=== PATIENT | male | born 1945 | race Caucasian/White ===

== ENCOUNTER 2018-11-12 15:00 | Inpatient (IN) ==
[2018-11-13] MEDS ORDERED: Dextrose Gel 15 GM/37.5 ML TUBE PO PRN ×2 (19:14)
[2018-11-13] MEDS ORDERED: D5% in Water 1,000 ML IVC PRN (19:14)
[2018-11-13] MEDS ORDERED: *HR* Dextrose 50 % in Water (Syg) 50 ML SYRINGE IVP PRN (19:14)
[2018-11-13] MEDS: Insulin LISPRO 300 UNITS/3 ML VIAL SQ SCH (21:57)
[2018-11-13] MEDS: Sennosides/Docusate Sodium TABLET PO SCH (21:58)
[2018-11-14 05:17] LABS: Basophils # 0.1 K/mcL (0.0-0.2); Basophils % 0.8 %; Eosinophils # 0.1 K/mcL (0.0-0.6); Eosinophils % 1.7 %; Hematocrit 27.9 % (37.5-50.1); Hemoglobin 9.8 g/dL (12.9-16.9); Immature Granulocytes % 1.9 % (0-4); Lymphocytes # 1.5 K/mcL (0.6-4.6); Mean Corpuscular HGB Conc 35.1 g/dL (31.6-35.5); Mean Corpuscular Volume 85.3 fL (83.0-100.0); Mean Platelet Volume 9.7 fL (9.4-12.4); Monocytes # 0.4 K/mcL (0.0-1.3); Monocytes % 6.5 %; Neutrophils # 4.2 K/mcL (1.6-8.9); Platelet Count 215 K/mcL (140-400); Red Blood Count 3.27 M/mcL (4.19-5.50); Red Cell Distribution Width 13.2 % (11.5-14.5); Segmented Neutrophils % 65.1 %
[2018-11-14 05:33] LABS: BUN/Creatinine Ratio 21 (6-26); Blood Urea Nitrogen 23 mg/dL (8-23); Carbon Dioxide 22 mEq/L (23-29); Chloride 109 mEq/L (98-107); Potassium 2.7 mEq/L (3.5-5.1); Sodium 139 mEq/L (136-145); eGFR For Non-African Americans > 60 (> 60)
[2018-11-14 05:34] LABS: Albumin 3.3 g/dL (3.5-5.7); BUN/Creatinine Ratio 21 (6-26); Blood Urea Nitrogen 23 mg/dL (8-23); Calcium 9.1 mg/dL (8.6-10.3); Carbon Dioxide 22 mEq/L (23-29); Chloride 109 mEq/L (98-107); Phosphorous 3.7 mg/dL (2.7-4.5); Potassium 2.7 mEq/L (3.5-5.1); Sodium 140 mEq/L (136-145); eGFR For Non-African Americans > 60 (> 60)
[2018-11-14 05:41] LABS: Glucose 108 mg/dL (70-105); Osmolality,Calculated 292 (280-300); Osmolality,Calculated 294 (280-300)
[2018-11-14] MEDS: Insulin LISPRO 300 UNITS/3 ML VIAL SQ SCH ×4 (07:36→20:53)
[2018-11-14] MEDS: Sennosides/Docusate Sodium TABLET PO SCH (07:40)
[2018-11-14] MEDS: *HR* SitaGLIPtin 100 MG TABLET PO SCH (07:40)
[2018-11-14] MEDS: amLODIPine 5 MG TABLET PO SCH (07:40)
[2018-11-14] MEDS: Cyanocobalamin (B-12) 1,000 MCG TABLET PO SCH (07:40)
[2018-11-14] MEDS: *HR* Glimepiride 4 MG TABLET PO SCH (07:46)
[2018-11-14] MEDS ORDERED: *HR* Metformin 500 MG TABLET PO SCH (08:00)
--- NOTE | 2018-11-14 09:23 | Internal Med History&Physical ---
Date of Encounter: 11/14/18 Time of Encounter: 09:20 Assessment and Plan (1) HTN (hypertension) Current visit: Yes Status: Chronic On multiple medication with imact of his Kidneys , Continue to monitor and adjsut meds as needed goal is to keep his systolic less then 160 since it could precipitate his intra parenchyma bleed. Qualifiers: Hypertension type: essential hypertension Qualified Code(s): I10 - Essential (primary) hypertension (2) Diabetes 1.5, managed as type 2 Current visit: Yes Status: Chronic on multiple meds HBA1c ordered , on sliding scale . Continue to be on the meds Adjust his meds based on his creatinine . D/C Metformin as his Creatinine is 2.7. On sliding scale insulin which he might need to be on . will benefit if Gargline is added after his HBA1c and overall control is more clear i (3) Chronic renal disease, stage 3, moderately decreased glomerular filtration rate between 30-59 mL/min/1.73 square meter Current visit: Yes Status: Chronic Cntinue to monitor and adjsut his meds as needed . Avoid all NSAID if possible . , Bladder scan to make it sure that there is no obstructive element (4) CVA (cerebrovascular accident due to intracerebral hemorrhage) Current visit: Yes Status: Acute He has hx of Previous CA with residual weakness on his left side . Right Basal ganglion bleed he was on Xeralto which is on hold . There is contraindication to use s/q heparin which he was on when came it . Use Compression stockings for DVT prevention while in beds Get rehab started hopefully that will increase his activity. Pt is full code . Qualifiers: Cerebral hemorrhage location: unspecified cerebral location Laterality: right Qualified Code(s): I61.9 - Nontraumatic intracerebral hemorrhage, unspecified (5) A-fib Current visit: Yes Status: Chronic Heart rate is stable at the present time , Anticoagulation on hold at the present time . He is to followup wiht his cardiology in one month and reassess the need to be on anticoagulation. will followup Qualifiers: Atrial fibrillation type: persistent Qualified Code(s): I48.1 - Persistent atrial fibrillation Internal Medicine - H&P: HPI Admitted From: Intrahospital Transfer ([facility]) History of present illness: Mr. Wade is a 73 year old male who was admitted from [facility] for rehab with the Dx of Right basal Ganglia Intraparenchymal bleed, CRF,hx of CVA with previous residual L hemiplegia,A fib ,CAD and DM. At the present time at the time of examination he was sitting and eating his breakfast . he denied any acute issues no Chest pain SOB nausea vomiting or diarrhea he complains of some weakness and loose stools which he has been having it for few days No fever or chill . Past Med Surg Social Fam HX - Past Medical History Medical history: CVA, diabetes, GERD, hypertension, thyroid disease, other Additional medical history: prostate Psychiatric history: no psych history - Past Surgical History Additional surgical history: bilat hip pins, ankle surgery, - Social History Smoking Status: Never smoker Smokeless Tobacco Status: No Alcohol use: none Drug use: none Internal Medicine - H&P: Meds Citalopram Hydrobromide [Celexa] 20 mg PO DAILY 11/13/18 [History] Cyanocobalamin (B-12) [Vitamin B12] 2,000 mcg PO DAILY 11/13/18 [History] Glimepiride [Amaryl] 4 mg PO QAM 11/13/18 [History] Levothyroxine [Synthroid] 75 mcg PO 0630 11/13/18 [History] Losartan Potassium [Cozaar] 100 mg PO DAILY 11/13/18 [History] Omeprazole [PriLOSEC] 40 mg PO DAILY 11/13/18 [History] Potassium Chloride [K-Tab ER] 20 meq PO DAILY 11/13/18 [History] Sennosides/Docusate Sodium [Senna-S Tablet] 1 each PO BID 11/13/18 [History] Simvastatin [Zocor] 20 mg PO HS 11/13/18 [History] SitaGLIPtin [Januvia] 100 mg PO DAILY 11/13/18 [History] Tamsulosin [Flomax] 0.4 mg PO DAILY 11/13/18 [History] Terazosin [Hytrin] 10 mg PO HS 11/13/18 [History] amLODIPine [Norvasc] 10 mg PO DAILY 11/13/18 [History] metFORMIN [Glucophage] 1,000 mg PO BIDWM 11/13/18 [History] Allergy/AdvReac Type Severity Reaction Status Date / Time Bee Pollen Allergy Anaphylaxis Verified 11/06/18 01:15 All Systems PM: A 10-system review of systems was performed and is negative for pertinent findings except as documented above in the HPI. - Constitutional Constitutional: weakness, no chills, no excessive sweating, no fever(s), no fa lls, no lethargy, no malaise, no night sweats, no weight loss - EENT Eyes: no blurry vision, no diplopia, no discharge, no dry eye, no loss of peripheral vision, no loss of vision, no photophobia, no seeing flashes, no other visual disturbances Nose, mouth and throat: no bleeding gums, no dental pain, no mouth pain, no sinus pain, no sore throat, no throat swelling, no tongue swelling - Respiratory Respiratory: no cough, no dyspnea, no hemoptysis, no dyspnea on exertion, no wheezing, no snoring, no pain on inspiration, no chest congestion, no excessive phlegm production, no change in phlegm color - Gastrointestinal Gastrointestinal: diarrhea, loose stools, no abdominal pain, no constipation, no dysphagia, no early satiety, no heartburn, no hematemesis, no hematochezia, no melena, no nausea - Genitourinary Genitourinary ROS male: urinary frequency, urinary hesitancy, urinary incontinence, urinary urgency, no dysuria, no flank pain, no genital lesions, no nocturia, no penile discharge, no post void dribbling - Musculoskeletal Musculoskeletal ROS IM: no arthralgias, no joint swelling, no stiffness, no tingling - Integumentary Integumentary IM: no erythema, no rash, no jaundice - Neurological Neurological ROS: focal weakness, weakness, no behavioral changes, no burning sensations, no confusion, no convulsions, no disequilibrium, no dizziness, no headache(s), no memory loss, no numbness, no restless legs, no tingling, no tremor(s) - Constitutional Vitals: Temp Pulse Resp BP Pulse Ox 98.3 F 66 16 180/84 98 11/14/18 07:49 11/14/18 07:49 11/14/18 07:49 11/14/18 07:49 11/14/18 07:49 General appearance: Present: A&O X 3, pleasant, obese, answers questions appropriately. Absent: severe distress - Head Head exam: Present: atraumatic - Eye Eye exam: Present: PERRL. Absent: scleral icterus Pupils: Present: PERRL - Neck Neck exam general surgery: Present: supple. Absent: tenderness, nuchal rigidity - Respiratory Respiratory exam: Present: CTAB. Absent: chest wall tenderness, decreased breath sounds, respiratory distress, rhonchi, stridor, wheezes, tachypnea Additional comments: ir entry equal both sides no wheeze or crackles noted - Cardiovascular Cardiovascular exam: Present: irregular rhythm, +S1, +S2 Additional comments: soft systolic mummer at the apex no radiation noted - GI/Abdominal GI/Abdominal exam: Present: normal bowel sounds, soft. Absent: diminished bowel sounds, rebound, rigid, tenderness, no peritoneal signs - Extremities Exam Extremities exam: Absent: pedal edema, tenderness - Neurological Exam Neurological exam: Present: altered, CN II-XII intact, oriented X3. Absent: facial droop, speech deficit Additional comments: weakness in his left arm and leg noted he was unable to raise motor strength is 3/5 on left side right side 5/5 Cranial nerves are grossly intact Internal Med - H&P Results - Labs CBC & Chem 7: 11/14/18 05:05 11/14/18 05:05 Labs: Short CBC 11/14/18 Range/Units 05:05 WBC 6.4 (4.3-11.1) K/mcL Hgb 9.8 L (12.9-16.9) g/dL Hct 27.9 L (37.5-50.1) % Plt Count 215 (140-400) K/mcL Neutrophils # 4.2 (1.6-8.9) K/mcL BMP 11/14/18 11/14/18 05:05 05:05 Sodium 139 140 Potassium 2.7 L 2.7 L Chloride 109 H 109 H Carbon Dioxide 22 L 22 L BUN 23 23 Creatinine 1.12 1.10 Glucose 108 H 108 H Calcium 9.0 9.1 Liver Function 11/14/18 Range/Units 05:05 Albumin 3.3 L (3.5-5.7) g/dL
[2018-11-15 05:54] LABS: BUN/Creatinine Ratio 18 (6-26); Blood Urea Nitrogen 20 mg/dL (8-23); Carbon Dioxide 24 mEq/L (23-29); Chloride 108 mEq/L (98-107); Glucose 140 mg/dL (70-105); Osmolality,Calculated 289 (280-300); Potassium 2.8 mEq/L (3.5-5.1); Sodium 137 mEq/L (136-145); eGFR For Non-African Americans > 60 (> 60)
--- NOTE | 2018-11-15 08:43 | Internal Med Progress Note ---
Date of Encounter: 11/15/18 Time of Encounter: 08:41 - Assessment and plan (1) HTN (hypertension) Current Visit: Yes Status: Chronic Assessment and plan: Blood pressure noted to be mildly high today . His creatinine is 2.8 needs to reconsider losartan use on [facility] long term care in the presence of CRI. Followup Renal profile in the [facility] if still high would recommend switching to any other antihypertensive meds ON prn Clonidine at the present time . Qualifiers: Hypertension type: essential hypertension Qualified Code(s): I10 - Essential (primary) hypertension (2) Diabetes 1.5, managed as type 2 Current Visit: Yes Status: Chronic Assessment and plan: stable On insulin . Blood sugar better (3) Chronic renal disease, stage 3, moderately decreased glomerular filtration rate between 30-59 mL/min/1.73 square meter Current Visit: Yes Status: Chronic Assessment and plan: followup labs , Seems to have good Urine output . Followup and adjust meds accordingly (4) CVA (cerebrovascular accident due to intracerebral hemorrhage) Current Visit: Yes Status: Acute Assessment and plan: stable at the present time Waiting for rehab to start. . Qualifiers: Cerebral hemorrhage location: unspecified cerebral location Laterality: right Qualified Code(s): I61.9 - Nontraumatic intracerebral hemorrhage, unspecified (5) A-fib Current Visit: Yes Status: Chronic Assessment and plan: Rate is s table needs to be reassessed for use of Anticoagulation after a month since he had a intraparenchymal bleed Qualifiers: Atrial fibrillation type: persistent Qualified Code(s): I48.1 - Persistent atrial fibrillation - Subjective Interval history: No acute issues at night time slept well and feels that he is doing much better weakness left side as before - Constitutional Vitals: Temp Pulse Resp BP Pulse Ox 98.8 F 63 16 164/75 96 11/15/18 07:00 11/15/18 07:00 11/15/18 07:00 11/15/18 07:00 11/15/18 07:00 General appearance: Present: A&O X 3, pleasant, obese, answers questions appropriately. Absent: severe distress - Head Head exam: Present: atraumatic - Eye Eye exam: Present: EOMI, PERRL Pupils: Present: PERRL - Neck Neck exam general surgery: Present: full ROM, supple. Absent: tenderness, nuchal rigidity - Respiratory Respiratory exam: Present: CTAB. Absent: decreased breath sounds, rhonchi, stridor, wheezes, tachypnea - Cardiovascular Cardiovascular exam: Present: irregular rhythm, +S1, +S2. Absent: tachycardia Additional comments: soft systolic mummer at [place] - GI/Abdominal GI/Abdominal exam: Present: normal bowel sounds, soft. Absent: distended, guarding, rebound, tenderness - Extremities Exam Extremities exam: Present: pedal edema Additional comments: minimal both side - Neurological Exam Neurological exam: Present: CN II-XII intact, oriented X3. Absent: facial droop, speech deficit Additional comments: left side arm and legs weak when compared to right side . He had residaul wekaenss from previous strokes as well . Internal Medicine: Result - Labs CBC & Chem 7: 11/14/18 05:05 11/15/18 05:28 Labs: BMP 11/15/18 05:28 Sodium 137 Potassium 2.8 L Chloride 108 H Carbon Dioxide 24 BUN 20 Creatinine 1.10 Glucose 140 H Calcium 9.0 Consult Discharge Plan - Plan Referrals: Zachary Galdamez CNP [Primary Care Provider] -
[2018-11-15] MEDS: Insulin LISPRO 300 UNITS/3 ML VIAL SQ SCH ×4 (09:51→20:31)
[2018-11-15] MEDS: *HR* Glimepiride 4 MG TABLET PO SCH (10:05)
[2018-11-15] MEDS: Cyanocobalamin (B-12) 1,000 MCG TABLET PO SCH (10:05)
[2018-11-15] MEDS: *HR* SitaGLIPtin 100 MG TABLET PO SCH (10:05)
[2018-11-15] MEDS: amLODIPine 5 MG TABLET PO SCH (10:05)
[2018-11-15] MEDS: cloNIDine HCl 0.1 MG TABLET PO PRN (11:12)
[2018-11-15 12:43] LABS: Estimated Average Glucose 128 mg/dl; Hemoglobin A1C 6.1 %
[2018-11-15] MEDS: Acetaminophen 325 MG TABLET PO PRN (23:12)
[2018-11-16] MEDS: Insulin LISPRO 300 UNITS/3 ML VIAL SQ SCH ×4 (07:53→21:20)
[2018-11-16] MEDS: amLODIPine 5 MG TABLET PO SCH (08:20)
[2018-11-16] MEDS: *HR* Glimepiride 4 MG TABLET PO SCH (08:20)
[2018-11-16] MEDS: *HR* SitaGLIPtin 100 MG TABLET PO SCH (08:20)
--- NOTE | 2018-11-16 11:12 | Internal Med Progress Note ---
Addendum entered and electronically signed by Marques Tapia MD 11/16/18 14:48: I have personally performed a face to face evaluation on this patient. I have r eviewed and agree with the care plan. History and Exam by me shows: Care assumed. Discussed with patient and . She is not sure about whether all previous strokes were right-sided deficits or if maybe one was left. In any event, he was ambulating with no appreciable diminished function, prior to this episode. We discussed hemorrhagic versus ischemic stroke, the importance of finding out from neurology or neurosurgery when he can begin his Xarelto again. He has been instructed to notify us should he have any new neurologic deficits, even while here. On further discussion, he has had diarrhea at home with profound hypokalemia and hypomagnesemia. For this reason, magnesium is ordered here and pending at this time. He still is quite hypokalemic, even though he has received supplements. Discussed care with other providers and/or nursing. Patient has no complaint of chest discomfort, dyspnea, orthopnea, palpitations, nausea or vomiting, constipation or diarrhea, other changes in bowel habits, difficulty with urination, rash or itching, or other new complaints, except as mentioned above. Review of systems is otherwise negative. Examination: (Except as mentioned above): General: In no apparent distress. Alert and oriented 3. Nondiaphoretic. Head: Atraumatic and normocephalic. Respiratory: No use of accessory muscles. Lungs are clear throughout. Normal airflow. Cardiovascular: Irregularly irregular consistent with atrial fibrillation but without murmur appreciated. Abdomen: Bowel sounds are normal. No hepatosplenomegaly mass or tenderness appreciated. Patient is examined upright in chair and this also limits exam. Extremities: No cyanosis clubbing or edema. Skin: Warm and non-diaphoretic with no new lesions noted. Original Note: Date of Encounter: 11/16/18 Time of Encounter: 11:09 - Assessment and plan (1) CVA (cerebrovascular accident due to intracerebral hemorrhage) Current Visit: Yes Status: Acute Assessment and plan: Continue PT, OT and ST. Will follow progress. No new neurological deficits. Follow up with neurology as scheduled. Qualifiers: Cerebral hemorrhage location: unspecified cerebral location Laterality: right Qualified Code(s): I61.9 - Nontraumatic intracerebral hemorrhage, unspecified (2) HTN (hypertension) Current Visit: Yes Status: Chronic Assessment and plan: Controlled with current medication. Continue clonidine as needed. Will monitor blood pressure. Qualifiers: Hypertension type: essential hypertension Qualified Code(s): I10 - Essential (primary) hypertension (3) Diabetes 1.5, managed as type 2 Current Visit: Yes Status: Chronic Assessment and plan: Controlled with sliding scale insulin. Continue to monitor blood sugars. Will adjust medications as necessary. (4) Chronic renal disease, stage 3, moderately decreased glomerular filtration rate between 30-59 mL/min/1.73 square meter Current Visit: Yes Status: Chronic Assessment and plan: Will monitor labs. Avoid nephrotoxic agents. (5) A-fib Current Visit: Yes Status: Chronic Assessment and plan: Rate and rhythm controlled. Anticoagulants on hold from neurology Qualifiers: Atrial fibrillation type: persistent Qualified Code(s): I48.1 - Persistent atrial fibrillation - Time Spent With Patient 25 - 35 minutes - Subjective Interval history: Patient participating well with therapy. Has left-sided weakness status post right CVA. Continues to have loose stool. Stool for c-diff was negative. Will trial a lactose-free diet. has spring hose and SCD's for DVT prophylaxis. Currently on of mechanical soft diet and thin liquids. Speech therapy to apolinar. States he lives at home with his and is anxious and ready to 2 only needs to due to get stronger to go home. Denies any new neurological deficits. Denies fever, chills, nausea vomiting. Maintaining appetite and hydration. - Constitutional Vitals: Temp Pulse Resp BP Pulse Ox 98.4 F 45 15 157/66 99 11/16/18 07:38 11/16/18 07:38 11/16/18 07:38 11/16/18 07:38 11/16/18 07:38 General appearance: Present: A&O X 3, pleasant, obese, answers questions appropriately. Absent: severe distress - Head Head exam: Present: atraumatic, normocephalic - Eye Eye exam: Present: PERRL, conjuntiva pink, sclera anicteric Pupils: Present: PERRL - Neck Neck exam general surgery: Present: supple, trachea midline. Absent: lymphadenopathy - Respiratory Respiratory exam: Present: CTAB. Absent: accessory muscle use, rales, rhonchi, wheezes - Cardiovascular Cardiovascular exam: Present: irregular rhythm, +S1, +S2. Absent: diastolic murmur, gallop, rubs, systolic murmur - GI/Abdominal GI/Abdominal exam: Present: normal bowel sounds, soft, no peritoneal signs. Absent: distended, tenderness - Extremities Exam Extremities exam: Present: warm, radial pulses palpable and symmetrical. Absent: calf tenderness, cyanotic, pedal edema Additional comments: Left upper and lower strength 3\5. Right upper and lower strength 5\5 - Neurological Exam Neurological exam: Present: CN II-XII intact, oriented X3, no focal deficits. Absent: pronater drift, facial droop, speech deficit - Skin Skin exam: Present: dry, intact Additional comments: Shearing wounds to bilat buttocks. Internal Medicine: Result - Labs CBC & Chem 7: 11/14/18 05:05 11/15/18 05:28 Consult Discharge Plan - Plan Referrals: Zachary Galdamez CNP [Primary Care Provider] -
[2018-11-16] MEDS: Cyanocobalamin (B-12) 1,000 MCG TABLET PO SCH (12:55)
[2018-11-16] MEDS: Acetaminophen 325 MG TABLET PO PRN (18:07)
[2018-11-17] MEDS: cloNIDine HCl 0.1 MG TABLET PO PRN (03:29)
[2018-11-17 06:00] LABS: BUN/Creatinine Ratio 18 (6-26); Blood Urea Nitrogen 19 mg/dL (8-23); Calcium 8.6 mg/dL (8.6-10.3); Carbon Dioxide 22 mEq/L (23-29); Chloride 109 mEq/L (98-107); Glucose 149 mg/dL (70-105); Osmolality,Calculated 289 (280-300); Potassium 2.9 mEq/L (3.5-5.1); Sodium 137 mEq/L (136-145); eGFR For Non-African Americans > 60 (> 60)
--- NOTE | 2018-11-17 11:28 | Internal Med Progress Note ---
Addendum entered and electronically signed by Marques Tapia MD 11/18/18 12:54: I have personally performed a face to face evaluation on this patient. I have r eviewed and agree with the care plan. History and Exam by me shows: The patient was evaluated by me yesterday but the note was not complete. This documentation is being completed today for that reason. Patient is feeling stronger and feels like he is progressing well with ther apies. He denies problems. Discussed care with other providers and/or nursing. Patient has no complaint of chest discomfort, dyspnea, orthopnea, palpitations, nausea or vomiting, constipation or diarrhea, other changes in bowel habits, difficulty with urination, rash or itching, or other new complaints, except as mentioned above. Review of systems is otherwise negative. Examination: (Except as mentioned above): General: In no apparent distress. Alert and oriented 3. Nondiaphoretic. Head: Atraumatic and normocephalic. Respiratory: No use of accessory muscles. Lungs are clear throughout. Normal airflow. Cardiovascular: Irregularly irregular consistent with atrial fibrillation without murmur appreciated. Abdomen: Bowel sounds are normal. No hepatosplenomegaly mass or tenderness appreciated. Obese and therefore difficult to palpate deeply. Patient is examined upright in chair and this also limits exam. Extremities: No cyanosis clubbing or edema. Skin: Warm and non-diaphoretic with no new lesions noted. Original Note: Date of Encounter: 11/17/18 Time of Encounter: 11:26 - Assessment and plan (1) CVA (cerebrovascular accident due to intracerebral hemorrhage) Current Visit: Yes Status: Acute Assessment and plan: Continue PT, OT and ST. Will follow progress. No new neurological deficits. Follow up with neurology as scheduled. Qualifiers: Cerebral hemorrhage location: unspecified cerebral location Laterality: right Qualified Code(s): I61.9 - Nontraumatic intracerebral hemorrhage, unspecified (2) HTN (hypertension) Current Visit: Yes Status: Chronic Assessment and plan: Controlled with current medication. Continue clonidine as needed. Will monitor blood pressure. Qualifiers: Hypertension type: essential hypertension Qualified Code(s): I10 - Essential (primary) hypertension (3) Diabetes 1.5, managed as type 2 Current Visit: Yes Status: Chronic Assessment and plan: Controlled with sliding scale insulin. Continue to monitor blood sugars. Will adjust medications as necessary. (4) Chronic renal disease, stage 3, moderately decreased glomerular filtration rate between 30-59 mL/min/1.73 square meter Current Visit: Yes Status: Chronic Assessment and plan: Will monitor labs. Avoid nephrotoxic agents. (5) A-fib Current Visit: Yes Status: Chronic Assessment and plan: Rate and rhythm stable. Anticoagulants on hold by neurology. Qualifiers: Atrial fibrillation type: persistent Qualified Code(s): I48.1 - Persistent atrial fibrillation (6) Hypokalemia Current Visit: Yes Status: Acute Assessment and plan: Potassium 2.9. Received IV mag sulfate yesterday. Continue potassium supplements. Will follow labs. Patient has had chronic diarrhea recently. (7) Hypomagnesemia Current Visit: Yes Status: Acute Assessment and plan: Received IV Mag sulfate yesterday. Will repeat labs - Time Spent With Patient less than 15 minutes - Subjective Interval history: Patient participating well with therapy. Has left-sided weakness status post right CVA. at bedside. Participating well with therapy. Continues to have loose stool. Stool for c-diff was negative. Will trial a lactose-free diet. has spring fuentes and SCD's for DVT prophylaxis. Denies any new neurological deficits. Denies fever, chills, nausea vomiting. Maintaining appetite and hydration. - Constitutional Vitals: Temp Pulse Resp BP Pulse Ox 97.7 F 50 15 158/73 98 11/17/18 07:36 11/17/18 07:36 11/17/18 07:36 11/17/18 07:36 11/17/18 07:36 General appearance: Present: A&O X 3, pleasant, obese, answers questions appropriately. Absent: severe distress Exam: Currently up in wheelchair - Head Head exam: Present: atraumatic, normocephalic - Eye Eye exam: Present: PERRL, conjuntiva pink, sclera anicteric Pupils: Present: PERRL - Neck Neck exam general surgery: Present: supple, trachea midline. Absent: lymphadenopathy - Respiratory Respiratory exam: Present: CTAB. Absent: accessory muscle use, rales, rhonchi, wheezes - Cardiovascular Cardiovascular exam: Present: irregular rhythm, +S1, +S2. Absent: diastolic murmur, gallop, rubs, systolic murmur - GI/Abdominal GI/Abdominal exam: Present: normal bowel sounds, soft, no peritoneal signs. Absent: distended, tenderness - Extremities Exam Extremities exam: Present: warm, radial pulses palpable and symmetrical. Absent: calf tenderness, cyanotic, pedal edema Additional comments: Edema to left hand, non-pitting - Neurological Exam Neurological exam: Present: CN II-XII intact, oriented X3, no focal deficits. Absent: pronater drift, facial droop, speech deficit - Skin Skin exam: Present: dry, intact Additional comments: Wounds with dressing in place to heal and bilateral Buttocks. Internal Medicine: Result - Labs CBC & Chem 7: 11/14/18 05:05 11/17/18 05:20 Labs: BMP 11/17/18 05:20 Sodium 137 Potassium 2.9 L Chloride 109 H Carbon Dioxide 22 L BUN 19 Creatinine 1.03 Glucose 149 H Calcium 8.6 Consult Discharge Plan - Plan Referrals: Zachary Galdamez CNP [Primary Care Provider] -
[2018-11-17] MEDS: Acetaminophen 325 MG TABLET PO PRN (11:30)
[2018-11-17] MEDS: *HR* SitaGLIPtin 100 MG TABLET PO SCH (11:30)
[2018-11-17] MEDS: amLODIPine 5 MG TABLET PO SCH (11:30)
[2018-11-17] MEDS: Cyanocobalamin (B-12) 1,000 MCG TABLET PO SCH (11:30)
[2018-11-17] MEDS: Magnesium Oxide 400 MG TABLET PO SCH (11:31)
[2018-11-17] MEDS: *HR* Glimepiride 4 MG TABLET PO SCH (11:31)
[2018-11-17] MEDS: Insulin LISPRO 300 UNITS/3 ML VIAL SQ SCH ×4 (11:31→20:31)
[2018-11-18] MEDS: Insulin LISPRO 300 UNITS/3 ML VIAL SQ SCH ×4 (07:45→20:29)
[2018-11-18] MEDS: *HR* SitaGLIPtin 100 MG TABLET PO SCH (07:47)
[2018-11-18] MEDS: Magnesium Oxide 400 MG TABLET PO SCH (07:47)
[2018-11-18] MEDS: Cyanocobalamin (B-12) 1,000 MCG TABLET PO SCH (07:47)
[2018-11-18] MEDS: *HR* Glimepiride 4 MG TABLET PO SCH (07:48)
[2018-11-18] MEDS: amLODIPine 5 MG TABLET PO SCH (07:48)
[2018-11-18 13:55] LABS: BUN/Creatinine Ratio 15 (6-26); Blood Urea Nitrogen 15 mg/dL (8-23); Carbon Dioxide 22 mEq/L (23-29); Chloride 105 mEq/L (98-107); Glucose 190 mg/dL (70-105); Osmolality,Calculated 284 (280-300); Potassium 3.2 mEq/L (3.5-5.1); Sodium 134 mEq/L (136-145); eGFR For Non-African Americans > 60 (> 60)
--- NOTE | 2018-11-18 14:49 | Internal Med Progress Note ---
Addendum entered and electronically signed by Marques Tapia MD 11/18/18 15:25: Patient is busy with other providers and/or in therapies or using the bathroom, so I am unable to see him today. Original Note: Date of Encounter: 11/18/18 Time of Encounter: 14:47 - Assessment and plan (1) CVA (cerebrovascular accident due to intracerebral hemorrhage) Current Visit: Yes Status: Acute Assessment and plan: Continue PT, OT and ST. Will follow progress. No new neurological deficits. Follow up with neurology as scheduled. Qualifiers: Cerebral hemorrhage location: unspecified cerebral location Laterality: right Qualified Code(s): I61.9 - Nontraumatic intracerebral hemorrhage, unspecified (2) HTN (hypertension) Current Visit: Yes Status: Chronic Assessment and plan: Controlled with current medication. Continue clonidine as needed. Will monitor blood pressure. Qualifiers: Hypertension type: essential hypertension Qualified Code(s): I10 - Essen tial (primary) hypertension (3) Diabetes 1.5, managed as type 2 Current Visit: Yes Status: Chronic Assessment and plan: Controlled with sliding scale insulin. Continue to monitor blood sugars. Will adjust medications as necessary. (4) Chronic renal disease, stage 3, moderately decreased glomerular filtration rate between 30-59 mL/min/1.73 square meter Current Visit: Yes Status: Chronic Assessment and plan: Will monitor labs. Avoid nephrotoxic agents. (5) A-fib Current Visit: Yes Status: Chronic Assessment and plan: Rate and rhythm stable. Anticoagulants on hold by neurology. Qualifiers: Atrial fibrillation type: persistent Qualified Code(s): I48.1 - Persistent atrial fibrillation (6) Hypokalemia Current Visit: Yes Status: Acute Assessment and plan: Potassium improving. 3.2 today. Continue supplements. (7) Hypomagnesemia Current Visit: Yes Status: Acute Assessment and plan: Improved after IV magnesium sulfate. Magnesium 1.6 today. - Time Spent With Patient less than 15 minutes - Subjective Interval history: Patient participating well with therapy. Has left-sided weakness status post right CVA. transfers with max assist. Suggested in parallel bars with therapy for 1 minute 15 seconds. With constant cueing. at bedside. Denies any new neurological deficits. Denies fever, chills, nausea vomiting. Maintaining appetite and hydration. - Constitutional Vitals: Temp Pulse Resp BP Pulse Ox 98.4 F 65 15 167/79 97 11/18/18 13:16 11/18/18 13:16 11/18/18 13:16 11/18/18 13:16 11/18/18 13:16 General appearance: Present: cooperative, A&O X 3, pleasant, obese, answers questions appropriately. Absent: severe distress - Head Head exam: Present: atraumatic, normocephalic - Eye Eye exam: Present: PERRL, conjuntiva pink, sclera anicteric Pupils: Present: PERRL - Neck Neck exam general surgery: Present: supple, trachea midline. Absent: lymphadenopathy - Respiratory Respiratory exam: Present: CTAB. Absent: accessory muscle use, rales, rhonchi, wheezes - Cardiovascular Cardiovascular exam: Present: irregular rhythm, +S1, +S2. Absent: diastolic murmur, gallop, rubs, systolic murmur - GI/Abdominal GI/Abdominal exam: Present: normal bowel sounds, soft, no peritoneal signs. Absent: distended, tenderness - Extremities Exam Extremities exam: Present: warm, radial pulses palpable and symmetrical. Absent: calf tenderness, cyanotic, pedal edema Additional comments: Left hand non-pitting edema. Encourage to elevate. - Neurological Exam Neurological exam: Present: CN II-XII intact, oriented X3, no focal deficits. Absent: pronater drift, facial droop, speech deficit - Skin Skin exam: Present: dry, intact Internal Medicine: Result - Labs CBC & Chem 7: 11/14/18 05:05 11/18/18 13:00 Labs: BMP 11/18/18 13:00 Sodium 134 L Potassium 3.2 L Chloride 105 Carbon Dioxide 22 L BUN 15 Creatinine 1.01 Glucose 190 H Calcium 9.0 Consult Discharge Plan - Plan Referrals: Zachary Galdamez, [employer]ACHINE OPERATOR [Primary Care Provider] -
--- NOTE | 2018-11-18 15:38 | Psychological Evaluation ---
Date of Encounter: 11/18/18 Time of Encounter: 10:00 History of Present Illness History of present illness: Mr. Wade is a 73 year old male who was admitted from [facility] for rehab with the Dx of Right basal Ganglia Intraparenchymal bleed, CRF,hx of CVA with previous residual L hemiplegia,A fib ,CAD and DM. Past Medical History - Psychiatric History Psychiatric history: Reports: no psych history Home Medications and Allergies Citalopram Hydrobromide [Celexa] 20 mg PO DAILY 11/13/18 [History] Cyanocobalamin (B-12) [Vitamin B12] 2,000 mcg PO DAILY 11/13/18 [History] Glimepiride [Amaryl] 4 mg PO QAM 11/13/18 [History] Levothyroxine [Synthroid] 75 mcg PO 0630 11/13/18 [History] Losartan Potassium [Cozaar] 100 mg PO DAILY 11/13/18 [History] Omeprazole [PriLOSEC] 40 mg PO DAILY 11/13/18 [History] Potassium Chloride [K-Tab ER] 20 meq PO DAILY 11/13/18 [History] Sennosides/Docusate Sodium [Senna-S Tablet] 1 each PO BID 11/13/18 [History] Simvastatin [Zocor] 20 mg PO HS 11/13/18 [History] SitaGLIPtin [Januvia] 100 mg PO DAILY 11/13/18 [History] Tamsulosin [Flomax] 0.4 mg PO DAILY 11/13/18 [History] Terazosin [Hytrin] 10 mg PO HS 11/13/18 [History] amLODIPine [Norvasc] 10 mg PO DAILY 11/13/18 [History] metFORMIN [Glucophage] 1,000 mg PO BIDWM 11/13/18 [History] Allergy/AdvReac Type Severity Reaction Status Date / Time Bee Pollen Allergy Anaphylaxis Verified 11/06/18 01:15 Social History - Social History Social History: Pt 40 years with 2 adult children and grandchildren. Lives with . He retired 2010 and has high school diploma. He enjoys grandsons sports; grocery shopping; yard work; and eating breakfast out. He would like to get back to these activities upon dc. - Tobacco Use Smoking Status: Never smoker - Alcohol Use Alcohol Use: none - Drug Use Drug Use: none Cognitive/Emotional Assessment - Cognitive Ability Abstract Thinking Ability: No Deficits Noted Attention Span Ability: Capable of Sustained Attention Language Function Ability: No Deficits Noted Verbal Communication Ability: Conversational Style Problem Solving Ability: Able To Solve Simple Problems Level of Alertness: Alert Memory Description: Recent Intact, Remote Intact Orientation: Person, Place, Time, Day of Week, Month, Year Ability to Follow Directions: Good Speech Pattern: Normal rate, Normal rhythm Thought Process: Intact Additional Findings: Ablle to spell WORLD forward and backward. 1/3 objects recalled after 5min and 1/2 recall with category cue. 5 digits forward and 2 backward. 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 Assessment & Plan - Diagnosis (1) Adjustment disorder with depressed mood - Prognosis Prognosis: Good - Treatment Plan Treatment Plan/Recommendations: Will follow as needed for coping strategies to maintain forward gains and hankins ges in function. Treatment Frequency: As staff and pt see need Procedures - Participants Therapy Participant: Patient - Session Time Session Start Time: 10:00 Session Stop Time: 10:30
[2018-11-18] MEDS: Acetaminophen 325 MG TABLET PO PRN (20:03)
[2018-11-19] MEDS: Insulin LISPRO 300 UNITS/3 ML VIAL SQ SCH ×4 (07:41→20:25)
[2018-11-19] MEDS: *HR* SitaGLIPtin 100 MG TABLET PO SCH (07:49)
[2018-11-19] MEDS: Cyanocobalamin (B-12) 1,000 MCG TABLET PO SCH (07:49)
[2018-11-19] MEDS: amLODIPine 5 MG TABLET PO SCH (07:49)
[2018-11-19] MEDS: Magnesium Oxide 400 MG TABLET PO SCH (07:49)
[2018-11-19] MEDS: *HR* Glimepiride 4 MG TABLET PO SCH (07:49)
--- NOTE | 2018-11-19 12:24 | Internal Med Progress Note ---
Date of Encounter: 11/19/18 Time of Encounter: 12:18 - Assessment and plan (1) CVA (cerebrovascular accident due to intracerebral hemorrhage) Current Visit: Yes Status: Acute Assessment and plan: This is markedly improved. We will continue to follow with therapies and clinically. The question is when he resumed his Xarelto. Qualifiers: Cerebral hemorrhage location: unspecified cerebral location Laterality: right Qualified Code(s): I61.9 - Nontraumatic intracerebral hemorrhage, unspecified (2) HTN (hypertension) Current Visit: Yes Status: Chronic Assessment and plan: Most readings are moderately controlled. Qualifiers: Hypertension type: essential hypertension Qualified Code(s): I10 - Essential (primary) hypertension (3) Diabetes 1.5, managed as type 2 Current Visit: Yes Status: Chronic Assessment and plan: Generally, control is adequate. (4) Hypokalemia Current Visit: Yes Status: Acute Assessment and plan: Improved but persistent and will maintain supplementation. (5) A-fib Current Visit: Yes Status: Chronic Assessment and plan: Still present and will await neurologic determination of when he can resume anticoagulation. Qualifiers: Atrial fibrillation type: persistent Qualified Code(s): I48.1 - Persistent atrial fibrillation (6) Chronic renal disease, stage 3, moderately decreased glomerular filtration rate between 30-59 mL/min/1.73 square meter Current Visit: Yes Status: Chronic Assessment and plan: Clinically stable labs. (7) Hypomagnesemia Current Visit: Yes Status: Acute Assessment and plan: Persistent yet improved. We will give him another dose of IV magnesium. - Subjective Interval history: Patient is without complaint. He feels like he is doing much better. He denies problems. He feels like his bowels have nearly normalized. Discussed care with other providers and/or nursing. Patient has no complaint of chest discomfort, dyspnea, orthopnea, palpitations, nausea or vomiting, constipation or diarrhea, other changes in bowel habits, difficulty with urination, rash or itching, or other new complaints, except as mentioned above. Review of systems is otherwise negative. - Constitutional Vitals: Temp Pulse Resp BP Pulse Ox 98.3 F 80 16 173/75 98 11/19/18 07:16 11/19/18 12:05 11/19/18 12:05 11/19/18 12:05 11/19/18 12:05 Exam: Examination: (Except as mentioned above): General: In no apparent distress. Alert and oriented 3. Nondiaphoretic. Head: Atraumatic and normocephalic. Respiratory: No use of accessory muscles. Lungs are clear throughout. Normal airflow. Cardiovascular: Regular rate and rhythm without murmur appreciated. Abdomen: Bowel sounds are normal. No hepatosplenomegaly mass or tenderness appreciated. Obese and therefore difficult to palpate deeply. Patient is examined upright in chair and this also limits exam. Extremities: No cyanosis clubbing or edema. Skin: Warm and non-diaphoretic with no new lesions noted. Neurologically, the patient has much improved strength. While it is 4+ out of 5 and therefore not normal, is markedly improved over 2 days ago. Internal Medicine: Result - Labs CBC & Chem 7: 11/14/18 05:05 11/18/18 13:00 Labs: BMP 11/18/18 13:00 Sodium 134 L Potassium 3.2 L Chloride 105 Carbon Dioxide 22 L BUN 15 Creatinine 1.01 Glucose 190 H Calcium 9.0 - VTE Documentation of Mechanical Device: Intermittent pneumatic compression device Consult Discharge Plan - Plan Referrals: Zachary Galdamez CNP [Primary Care Provider] -
[2018-11-19] MEDS: cloNIDine HCl 0.1 MG TABLET PO PRN (14:40)
[2018-11-19] MEDS: Acetaminophen 325 MG TABLET PO PRN (20:22)
[2018-11-20 05:41] LABS: BUN/Creatinine Ratio 16 (6-26); Blood Urea Nitrogen 15 mg/dL (8-23); Calcium 8.8 mg/dL (8.6-10.3); Carbon Dioxide 22 mEq/L (23-29); Chloride 108 mEq/L (98-107); Glucose 143 mg/dL (70-105); Magnesium 1.9 mg/dL (1.6-2.6); Osmolality,Calculated 291 (280-300); Sodium 139 mEq/L (136-145); eGFR For Non-African Americans > 60 (> 60)
[2018-11-20] MEDS: Magnesium Oxide 400 MG TABLET PO SCH (10:25)
[2018-11-20] MEDS: Cyanocobalamin (B-12) 1,000 MCG TABLET PO SCH (10:30)
[2018-11-20] MEDS: *HR* SitaGLIPtin 100 MG TABLET PO SCH (10:30)
[2018-11-20] MEDS: *HR* Glimepiride 4 MG TABLET PO SCH (10:30)
[2018-11-20] MEDS: amLODIPine 5 MG TABLET PO SCH (10:30)
--- NOTE | 2018-11-20 10:43 | Internal Med Progress Note ---
Addendum entered and electronically signed by Marques Tapia MD 11/20/18 13:48: I have personally performed a face to face evaluation on this patient. I have r eviewed and agree with the care plan. History and Exam by me shows: Patient is not feeling well, today. He has no specific or localized complaints including no dizziness, lightheadedness, headache, nausea, etc. Discussed care with other providers and/or nursing. Patient has no complaint of chest discomfort, dyspnea, orthopnea, palpitations, nausea or vomiting, constipation or diarrhea, other changes in bowel habits, difficulty with urination, rash or itching, or other new complaints, except as mentioned above. Review of systems is otherwise negative. Examination: (Except as mentioned above): General: In no apparent distress. Alert and oriented 3. Nondiaphoretic. Head: Atraumatic and normocephalic. Respiratory: No use of accessory muscles. Lungs are clear throughout. Normal airflow. Cardiovascular: Regular rate and rhythm without murmur appreciated. Abdomen: Bowel sounds are normal. No hepatosplenomegaly mass or tenderness appreciated. Obese and therefore difficult to palpate deeply. Patient is examined upright in chair and this also limits exam. Extremities: No cyanosis clubbing or edema. Skin: Warm and non-diaphoretic with no new lesions noted. Neurologically, he continues to have better strength in his left upper and lower extremities. Of note, he had a moderately elevated blood pressure this morning and this is doing better. Will follow his symptoms and blood pressure and use when necessary clonidine. Original Note: Date of Encounter: 11/20/18 Time of Encounter: 10:38 - Assessment and plan (1) CVA (cerebrovascular accident due to intracerebral hemorrhage) Current Visit: Yes Status: Acute Assessment and plan: No acute issues. Patient continues with left hemiparesis. Patient states that physical therapy has been progressing well. Patient states he. Weight on his left leg but continues to have difficulty with walking. Qualifiers: Cerebral hemorrhage location: unspecified cerebral location Laterality: right Qualified Code(s): I61.9 - Nontraumatic intracerebral hemorrhage, unspecified (2) HTN (hypertension) Current Visit: Yes Status: Chronic Assessment and plan: Patient continues to have slightly elevated systolic blood pressure between 150-160. We will continue on current medications and evaluate patient's blood pressures for titration of medications Qualifiers: Hypertension type: essential hypertension Qualified Code(s): I10 - Essential (primary) hypertension (3) Diabetes 1.5, managed as type 2 Current Visit: Yes Status: Chronic Assessment and plan: No acute issues. Patient's glucose has been fairly well-controlled with most readings less than 200. Continue sliding scale coverage and evaluate patient's long-acting coverage for titration (4) Chronic renal disease, stage 3, moderately decreased glomerular filtration rate between 30-59 mL/min/1.73 square meter Current Visit: Yes Status: Chronic Assessment and plan: No acute issues. Patient's current creatinine of 0.9. We will continue to monitor serial labs and continue on current medications (5) A-fib Current Visit: Yes Status: Chronic Assessment and plan: Patient's current ventricular rate is less than 100 controlled. He denies any chest discomforts palpitations. We will continue on current medications. Qualifiers: Atrial fibrillation type: persistent Qualified Code(s): I48.1 - Persistent atrial fibrillation (6) Hypokalemia Current Visit: Yes Status: Acute Assessment and plan: Today's potassium is 3.0. Patient given supplemental potassium 40 mEq today and will start on daily potassium. - Time Spent With Patient less than 15 minutes - Subjective Interval history: Patient appears relaxed and currently denies any discomforts or shortness of breath. Patient states that he feels his strength on his left side has improved somewhat. Patient denies any acute neurological changes since his admission - Constitutional Vitals: Temp Pulse Resp BP Pulse Ox 97.7 F 50 16 152/80 93 11/20/18 07:43 11/20/18 07:43 11/20/18 07:43 11/20/18 07:43 11/20/18 07:43 General appearance: Present: cooperative, A&O X 3, pleasant, obese, answers questions appropriately. Absent: severe distress - Head Head exam: Present: atraumatic, normocephalic - Eye Eye exam: Present: PERRL, conjuntiva pink, sclera anicteric Pupils: Present: PERRL - Neck Neck exam general surgery: Present: supple, trachea midline. Absent: lymphadenopathy - Respiratory Respiratory exam: Present: CTAB. Absent: accessory muscle use, rales, rhonchi, wheezes - Cardiovascular Cardiovascular exam: Present: RRR, +S1, +S2. Absent: diastolic murmur, gallop, rubs, systolic murmur - GI/Abdominal GI/Abdominal exam: Present: normal bowel sounds, soft, no peritoneal signs. Absent: distended, tenderness - Extremities Exam Extremities exam: Present: warm, radial pulses palpable and symmetrical. Absent: calf tenderness, cyanotic, pedal edema - Neurological Exam Neurological exam: Present: CN II-XII intact, oriented X3. Absent: pronater drift, facial droop, speech deficit Additional comments: Patient continues with left hemiparesis with left extremities and 4/5 muscle strength proximal/distal during extension/flexion. Right extremities at 5/5. Noted left pronator drift on both left arm and leg - Skin Skin exam: Present: dry, intact Internal Medicine: Result - Labs CBC & Chem 7: 11/14/18 05:05 11/20/18 04:53 Labs: BMP 11/20/18 04:53 Sodium 139 Potassium 3.0 L Chloride 108 H Carbon Dioxide 22 L BUN 15 Creatinine 0.93 Glucose 143 H Calcium 8.8 - VTE Documentation of Mechanical Device: Intermittent pneumatic compression device Consult Discharge Plan - Plan Referrals: Zachary Gadlamez [employer]TING MACHINE HELPER [Primary Care Provider] -
[2018-11-20] MEDS: Insulin LISPRO 300 UNITS/3 ML VIAL SQ SCH ×4 (12:19→21:38)
[2018-11-20] MEDS: cloNIDine HCl 0.1 MG TABLET PO PRN (12:24)
[2018-11-21 07:29] LABS: Hematocrit 27.1 % (37.5-50.1); Hemoglobin 9.3 g/dL (12.9-16.9); Mean Corpuscular HGB Conc 34.3 g/dL (31.6-35.5); Mean Corpuscular Hemoglobin 29.2 pg (28.0-33.3); Mean Corpuscular Volume 85.2 fL (83.0-100.0); Mean Platelet Volume 10.1 fL (9.4-12.4); Platelet Count 200 K/mcL (140-400); Red Blood Count 3.18 M/mcL (4.19-5.50); Red Cell Distribution Width 13.5 % (11.5-14.5)
[2018-11-21 07:44] LABS: Alanine Aminotransferase 12 Units/L (7-52); Albumin 3.2 g/dL (3.5-5.7); Albumin/Globulin Ratio 1.4 (1.1-2.2); Alkaline Phosphatase 73 Units/L (34-104); Aspartate Amino Transferase 12 Units/L (13-39); BUN/Creatinine Ratio 19 (6-26); Bilirubin,Total 0.5 mg/dL (0.3-1.0); Blood Urea Nitrogen 17 mg/dL (8-23); Calcium 8.6 mg/dL (8.6-10.3); Carbon Dioxide 22 mEq/L (23-29); Chloride 106 mEq/L (98-107); Globulin 2.3 g/dL (2.4-3.5); Glucose 158 mg/dL (70-105); Magnesium 1.7 mg/dL (1.6-2.6); Osmolality,Calculated 281 (280-300); Potassium 3.1 mEq/L (3.5-5.1); Sodium 133 mEq/L (136-145); Total Protein 5.5 g/dL (6.4-8.9); eGFR For Non-African Americans > 60 (> 60)
[2018-11-21] MEDS: Insulin LISPRO 300 UNITS/3 ML VIAL SQ SCH ×4 (08:27→20:18)
[2018-11-21] MEDS: *HR* Glimepiride 4 MG TABLET PO SCH (08:28)
[2018-11-21] MEDS: amLODIPine 5 MG TABLET PO SCH (08:29)
[2018-11-21] MEDS: Magnesium Oxide 400 MG TABLET PO SCH (08:30)
[2018-11-21] MEDS: *HR* SitaGLIPtin 100 MG TABLET PO SCH (08:30)
[2018-11-21] MEDS: Cyanocobalamin (B-12) 1,000 MCG TABLET PO SCH (08:30)
[2018-11-21] MEDS: cloNIDine HCl 0.1 MG TABLET PO PRN ×2 (13:08→16:54)
--- NOTE | 2018-11-21 17:39 | Internal Med Progress Note ---
Date of Encounter: 11/21/18 Time of Encounter: 17:00 - Assessment and plan (1) HTN (hypertension) Current Visit: Yes Status: Chronic Assessment and plan: Uncontrolled. Will start hydralazine and continue clonidine prn. Qualifiers: Hypertension type: essential hypertension Qualified Code(s): I10 - Essential (primary) hypertension (2) Diabetes 1.5, managed as type 2 Current Visit: Yes Status: Chronic Assessment and plan: Appears uncontrolled. Will obtain A1c and continue current regimen. Might need to consider initiating insulin. (3) Chronic renal disease, stage 3, moderately decreased glomerular filtration rate between 30-59 mL/min/1.73 square meter Current Visit: Yes Status: Chronic Assessment and plan: No acute issues. Patient's current creatinine of 0.89. We will continue to monitor serial labs and continue on current medications (4) CVA (cerebrovascular accident due to intracerebral hemorrhage) Current Visit: Yes Status: Acute Assessment and plan: No acute issues. Patient continues with left hemiparesis. Patient states that physical therapy has been progressing well. Continue current regimen. Qualifiers: Cerebral hemorrhage location: unspecified cerebral location Laterality: right Qualified Code(s): I61.9 - Nontraumatic intracerebral hemorrhage, unspecified (5) A-fib Current Visit: Yes Status: Chronic Assessment and plan: Patient's current ventricular rate is less than 100 controlled. We will continue on current medications. Qualifiers: Atrial fibrillation type: persistent Qualified Code(s): I48.1 - Persistent atrial fibrillation (6) Hypokalemia Current Visit: Yes Status: Acute Assessment and plan: replete as appropriate. - Time Spent With Patient less than 15 minutes - Subjective Interval history: Doing fine, no concern. Did eat a peanut better snack this afternoon and believes this could be the reason why his sugar has been high. - Constitutional Vitals: Temp Pulse Resp BP Pulse Ox 97.7 F 59 16 167/73 95 11/21/18 16:51 11/21/18 16:51 11/21/18 16:51 11/21/18 16:51 11/21/18 16:51 General appearance: Present: cooperative, A&O X 3, pleasant, obese, answers questions appropriately. Absent: severe distress Exam: Gen: A&Ox3, NAD. HEENT: NCAT. Neck: No palpable lymphadenopathy or thyromegaly. CV: Irregularly irregular. 2/6, systolic murmur. Capillary refill < 2 seconds. Pulm: CTAB. Abd: (+)BS. NDNT. Neuro: Left-sided weakness, otherwise non-focal. Skin: No rash. Ext: No pitting edema. Internal Medicine: Result - Labs CBC & Chem 7: 11/21/18 07:05 11/21/18 07:05 Labs: Short CBC 11/21/18 Range/Units 07:05 WBC 7.3 (4.3-11.1) K/mcL Hgb 9.3 L (12.9-16.9) g/dL Hct 27.1 L (37.5-50.1) % Plt Count 200 (140-400) K/mcL BMP 11/21/18 07:05 Sodium 133 L Potassium 3.1 L Chloride 106 Carbon Dioxide 22 L BUN 17 Creatinine 0.89 Glucose 158 H Calcium 8.6 Liver Function 11/21/18 Range/Units 07:05 Total Bilirubin 0.5 (0.3-1.0) mg/dL AST 12 L (13-39) Units/L ALT 12 (7-52) Units/L Alkaline Phosphatase 73 (34-104) Units/L Albumin 3.2 L (3.5-5.7) g/dL - VTE Documentation of Mechanical Device: Intermittent pneumatic compression device Consult Discharge Plan - Plan Referrals: Zachary Galdamez CNP [Primary Care Provider] -
[2018-11-21] MEDS: hydrALAZINE 10 MG TABLET PO SCH (20:18)
[2018-11-22] MEDS: hydrALAZINE 10 MG TABLET PO SCH ×4 (00:41→18:10)
[2018-11-22] MEDS: Insulin LISPRO 300 UNITS/3 ML VIAL SQ SCH ×4 (08:23→21:03)
[2018-11-22] MEDS: Cyanocobalamin (B-12) 1,000 MCG TABLET PO SCH (09:35)
[2018-11-22] MEDS: *HR* Glimepiride 4 MG TABLET PO SCH (09:36)
[2018-11-22] MEDS: *HR* SitaGLIPtin 100 MG TABLET PO SCH (09:36)
[2018-11-22] MEDS: amLODIPine 5 MG TABLET PO SCH (09:37)
[2018-11-22] MEDS: Magnesium Oxide 400 MG TABLET PO SCH (09:37)
--- NOTE | 2018-11-22 13:33 | Internal Med Progress Note ---
Date of Encounter: 11/22/18 Time of Encounter: 13:00 - Assessment and plan (1) HTN (hypertension) Current Visit: Yes Status: Chronic Assessment and plan: Uncontrolled. Hydralazine started yesterday. Will continue clonidine prn. Qualifiers: Hypertension type: essential hypertension Qualified Code(s): I10 - Essential (primary) hypertension (2) Diabetes 1.5, managed as type 2 Current Visit: Yes Status: Chronic Assessment and plan: Appears uncontrolled. Will obtain A1c and continue current regimen. Might need to consider initiating insulin. (3) Chronic renal disease, stage 3, moderately decreased glomerular filtration rate between 30-59 mL/min/1.73 square meter Current Visit: Yes Status: Chronic Assessment and plan: No acute issues. Patient's current creatinine of 0.89. We will continue to monitor serial labs and continue on current medications (4) CVA (cerebrovascular accident due to intracerebral hemorrhage) Current Visit: Yes Status: Acute Assessment and plan: No acute issues. Patient continues with left hemiparesis. Patient states that physical therapy has been progressing well. Continue current regimen. Qualifiers: Cerebral hemorrhage location: unspecified cerebral location Laterality: right Qualified Code(s): I61.9 - Nontraumatic intracerebral hemorrhage, unspecified (5) A-fib Current Visit: Yes Status: Chronic Assessment and plan: Patient's current ventricular rate is less than 100 controlled. We will continue on current medications. Qualifiers: Atrial fibrillation type: persistent Qualified Code(s): I48.1 - Persistent atrial fibrillation (6) Hypokalemia Current Visit: Yes Status: Acute Assessment and plan: replete as appropriate. - Time Spent With Patient less than 15 minutes - Subjective Interval history: Doing fine, no concern. Did not eat any peanut butter snacks on the side since we talked yesterday. - Constitutional Vitals: Temp Pulse Resp BP Pulse Ox 97.5 F L 82 19 181/76 98 11/22/18 11:48 11/22/18 11:48 11/22/18 11:48 11/22/18 11:48 11/22/18 11:48 General appearance: Present: cooperative, A&O X 3, pleasant, obese, answers questions appropriately. Absent: severe distress Exam: Gen: A&Ox3, NAD. HEENT: NCAT. Neck: No palpable lymphadenopathy or thyromegaly. CV: Irregularly irregular. 2/6, systolic murmur. Capillary refill < 2 seconds. Pulm: CTAB. Abd: (+)BS. NDNT. Neuro: Left-sided weakness, otherwise non-focal. Skin: No rash. Ext: No pitting edema. Internal Medicine: Result - Labs CBC & Chem 7: 11/21/18 07:05 11/21/18 07:05 - VTE Documentation of Mechanical Device: Intermittent pneumatic compression device Consult Discharge Plan - Plan Referrals: Zachary Galdamez CNP [Primary Care Provider] -
[2018-11-22] MEDS: cloNIDine HCl 0.1 MG TABLET PO PRN (16:08)
[2018-11-23] MEDS: hydrALAZINE 10 MG TABLET PO SCH ×4 (00:11→17:22)
[2018-11-23 09:09] LABS: Estimated Average Glucose 134 mg/dl; Hemoglobin A1C 6.3 %
[2018-11-23] MEDS: Insulin LISPRO 300 UNITS/3 ML VIAL SQ SCH ×4 (09:09→20:01)
[2018-11-23] MEDS: amLODIPine 5 MG TABLET PO SCH (10:08)
[2018-11-23] MEDS: *HR* Glimepiride 4 MG TABLET PO SCH (10:08)
[2018-11-23] MEDS: *HR* SitaGLIPtin 100 MG TABLET PO SCH (10:08)
--- NOTE | 2018-11-23 10:27 | Internal Med Progress Note ---
Addendum entered and electronically signed by Marques Tapia MD 11/23/18 13:32: It should be noted that the patient is still an irregularly irregular rhythm consistent with atrial fibrillation. Addendum entered and electronically signed by Marques Tapia MD 11/23/18 13:26: I have personally performed a face to face evaluation on this patient. I have reviewed and agree with the care plan. History and Exam by me shows: Patient is feeling well and is looking forward to going home. However, therapy notes that he is still unsteady in his transfers and his gait is minimal. He is improving and his bowel movements have decreased in frequency, to about 1 per day. He denies other problems. He still has left terrance-neglect. Discussed care with other providers and/or nursing. Patient has no complaint of chest discomfort, dyspnea, orthopnea, palpitations, nausea or vomiting, constipation or diarrhea, other changes in bowel habits, difficulty with urination, rash or itching, or other new complaints, except as mentioned above. Review of systems is otherwise negative. Examination: (Except as mentioned above): General: In no apparent distress. Alert and oriented 3. Nondiaphoretic. Head: Atraumatic and normocephalic. Respiratory: No use of accessory muscles. Lungs are clear throughout. Normal airflow. Cardiovascular: Regular rate and rhythm without murmur appreciated. Abdomen: Bowel sounds are normal. No hepatosplenomegaly mass or tenderness appreciated. Obese and therefore difficult to palpate deeply. Extremities: No cyanosis clubbing or edema. Skin: Warm and non-diaphoretic with no new lesions noted. His left extremity strength is improved but is still weak at about 4 minus/5. He is able to elevate his left upper extremity to about 100 degrees, only. Original Note: Date of Encounter: 11/23/18 Time of Encounter: 10:25 - Assessment and plan (1) CVA (cerebrovascular accident due to intracerebral hemorrhage) Current Visit: Yes Status: Acute Assessment and plan: Continue PT, OT and ST. Will follow progress. No new neurological deficits. Follow up with neurology as scheduled. Qualifiers: Cerebral hemorrhage location: unspecified cerebral location Laterality: right Qualified Code(s): I61.9 - Nontraumatic intracerebral hemorrhage, unspecified (2) HTN (hypertension) Current Visit: Yes Status: Chronic Assessment and plan: Controlled with current medication. Continue clonidine as needed. Will monitor blood pressure. Qualifiers: Hypertension type: essential hypertension Qualified Code(s): I10 - Essential (primary) hypertension (3) Diabetes 1.5, managed as type 2 Current Visit: Yes Status: Chronic Assessment and plan: Controlled with sliding scale insulin. Continue to monitor blood sugars. Will adjust medications as necessary. (4) Chronic renal disease, stage 3, moderately decreased glomerular filtration rate between 30-59 mL/min/1.73 square meter Current Visit: Yes Status: Chronic Assessment and plan: Will monitor labs. Avoid nephrotoxic agents. (5) A-fib Current Visit: Yes Status: Chronic Assessment and plan: Rate and rhythm stable. Anticoagulants on hold by neurology. Qualifiers: Atrial fibrillation type: persistent Qualified Code(s): I48.1 - Persistent atrial fibrillation (6) Hypokalemia Current Visit: Yes Status: Acute Assessment and plan: Prepeat BMP today, follow for results. - Time Spent With Patient less than 15 minutes - Subjective Interval history: Patient participating well with therapy. Has left-sided weakness status post right CVA. transfers with max assist. Denies any new neurological deficits. Denies fever, chills, nausea vomiting. Maintaining appetite and hydration. - Constitutional Vitals: Temp Pulse Resp BP Pulse Ox 98.2 F 60 18 154/71 98 11/23/18 08:35 11/23/18 08:35 11/23/18 08:35 11/23/18 08:35 11/23/18 08:35 General appearance: Present: cooperative, A&O X 3, pleasant, obese, answers questions appropriately. Absent: severe distress - Head Head exam: Present: atraumatic, normocephalic - Eye Eye exam: Present: PERRL, conjuntiva pink, sclera anicteric Pupils: Present: PERRL - Neck Neck exam general surgery: Present: supple, trachea midline. Absent: lymphadenopathy - Respiratory Respiratory exam: Present: CTAB. Absent: accessory muscle use, rales, rhonchi, wheezes - Cardiovascular Cardiovascular exam: Present: irregular rhythm, +S1, +S2. Absent: diastolic murmur, gallop, rubs, systolic murmur - GI/Abdominal GI/Abdominal exam: Present: normal bowel sounds, soft, no peritoneal signs. Absent: distended, tenderness - Extremities Exam Extremities exam: Present: warm, radial pulses palpable and symmetrical. Absent: calf tenderness, cyanotic, pedal edema Additional comments: Left sided weakness, left hand, nonpitting edema - Neurological Exam Neurological exam: Present: CN II-XII intact, oriented X3, no focal deficits. Absent: pronater drift, facial droop, speech deficit - Skin Skin exam: Present: dry, intact Internal Medicine: Result - Labs CBC & Chem 7: 11/21/18 07:05 11/21/18 07:05 - VTE Documentation of Mechanical Device: Intermittent pneumatic compression device Consult Discharge Plan - Plan Referrals: Zachary Galdamez CNP [Primary Care Provider] -
[2018-11-23] MEDS: Cyanocobalamin (B-12) 1,000 MCG TABLET PO SCH (11:04)
[2018-11-23] MEDS: Magnesium Oxide 400 MG TABLET PO SCH (11:04)
[2018-11-23 11:34] LABS: BUN/Creatinine Ratio 15 (6-26); Blood Urea Nitrogen 16 mg/dL (8-23); Carbon Dioxide 23 mEq/L (23-29); Chloride 101 mEq/L (98-107); Glucose 214 mg/dL (70-105); Magnesium 1.7 mg/dL (1.6-2.6); Osmolality,Calculated 280 (280-300); Potassium 3.8 mEq/L (3.5-5.1); Sodium 131 mEq/L (136-145); eGFR For Non-African Americans > 60 (> 60)
[2018-11-23] MEDS: cloNIDine HCl 0.1 MG TABLET PO PRN (19:51)
[2018-11-24] MEDS: hydrALAZINE 10 MG TABLET PO SCH ×5 (00:20→23:52)
[2018-11-24] MEDS: Acetaminophen 325 MG TABLET PO PRN (01:36)
[2018-11-24] MEDS: *HR* Glimepiride 4 MG TABLET PO SCH (08:17)
[2018-11-24] MEDS: Cyanocobalamin (B-12) 1,000 MCG TABLET PO SCH (08:17)
[2018-11-24] MEDS: Magnesium Oxide 400 MG TABLET PO SCH (08:17)
[2018-11-24] MEDS: *HR* SitaGLIPtin 100 MG TABLET PO SCH (08:17)
[2018-11-24] MEDS: amLODIPine 5 MG TABLET PO SCH (08:17)
[2018-11-24] MEDS: Insulin LISPRO 300 UNITS/3 ML VIAL SQ SCH ×4 (08:18→20:45)
--- NOTE | 2018-11-24 11:38 | Internal Med Progress Note ---
Date of Encounter: 11/24/18 Time of Encounter: 11:36 - Assessment and plan (1) CVA (cerebrovascular accident due to intracerebral hemorrhage) Current Visit: Yes Status: Acute Assessment and plan: He is continuing to improve. He will be off anticoagulation at least until seen by the neurologist at [facility]. Therapies continues. Qualifiers: Cerebral hemorrhage location: unspecified cerebral location Laterality: right Qualified Code(s): I61.9 - Nontraumatic intracerebral hemorrhage, unspecified (2) HTN (hypertension) Current Visit: Yes Status: Chronic Assessment and plan: He has had increased medication in the form of Hydralazine. Blood pressure is reasonably controlled. Qualifiers: Hypertension type: essential hypertension Qualified Code(s): I10 - Essential (primary) hypertension (3) Diabetes 1.5, managed as type 2 Current Visit: Yes Status: Chronic Assessment and plan: Generally, control is adequate. Not the best control but improving, slowly. (4) Hypokalemia Current Visit: Yes Status: Acute Assessment and plan: Resolved. Will follow. (5) A-fib Current Visit: Yes Status: Chronic Assessment and plan: Rate is controlled. Will continue on current medical regimen. Qualifiers: Atrial fibrillation type: persistent Qualified Code(s): I48.1 - Persistent atrial fibrillation (6) Chronic renal disease, stage 3, moderately decreased glomerular filtration rate between 30-59 mL/min/1.73 square meter Current Visit: Yes Status: Chronic Assessment and plan: Clinically stable labs. (7) Hypomagnesemia Current Visit: Yes Status: Acute Assessment and plan: Improved, will follow.. - Subjective Interval history: Patient is without complaint. He is pleased with the strength and function he is gaining at his left extremities. Left upper extremity is clumsy but is improving. He states that his bowels are still a little on the loose side but nearly normal. Discussed care with other providers and/or nursing. Patient has no complaint of chest discomfort, dyspnea, orthopnea, palpitations, nausea or vomiting, constipation or diarrhea, other changes in bowel habits, difficulty with urination, rash or itching, or other new complaints, except as mentioned above. Review of systems is otherwise negative. - Constitutional Vitals: Temp Pulse Resp BP Pulse Ox 98.9 F 53 16 141/70 97 11/24/18 07:59 11/24/18 07:59 11/24/18 07:59 11/24/18 07:59 11/24/18 07:59 Exam: Examination: (Except as mentioned above): General: In no apparent distress. Alert and oriented 3. Nondiaphoretic. Head: Atraumatic and normocephalic. Respiratory: No use of accessory muscles. Lungs are clear throughout. Normal airflow. Cardiovascular: Irregularly irregular consistent with atrial fibrillation, without murmur appreciated. Abdomen: Bowel sounds are normal. No hepatosplenomegaly mass or tenderness appreciated. Obese and therefore difficult to palpate deeply. Patient is examined upright in chair and this also limits exam. Extremities: No cyanosis clubbing or edema. Skin: Warm and non-diaphoretic with no new lesions noted. Internal Medicine: Result - Labs CBC & Chem 7: 11/21/18 07:05 11/23/18 10:50 - VTE Documentation of Mechanical Device: Intermittent pneumatic compression device Consult Discharge Plan - Plan Referrals: Zachary Galdamez CNP [Primary Care Provider] -
[2018-11-25] MEDS: Acetaminophen 325 MG TABLET PO PRN ×2 (03:07→21:30)
[2018-11-25] MEDS: hydrALAZINE 10 MG TABLET PO SCH ×4 (06:18→23:48)
[2018-11-25] MEDS: Insulin LISPRO 300 UNITS/3 ML VIAL SQ SCH ×4 (07:31→21:34)
[2018-11-25] MEDS: *HR* Glimepiride 4 MG TABLET PO SCH (09:41)
[2018-11-25] MEDS: Cyanocobalamin (B-12) 1,000 MCG TABLET PO SCH (09:41)
[2018-11-25] MEDS: amLODIPine 5 MG TABLET PO SCH (09:41)
[2018-11-25] MEDS: Magnesium Oxide 400 MG TABLET PO SCH (09:42)
[2018-11-25] MEDS: *HR* SitaGLIPtin 100 MG TABLET PO SCH (09:42)
--- NOTE | 2018-11-25 10:15 | Internal Med Progress Note ---
Addendum entered and electronically signed by Marques Tapia MD 11/25/18 11:26: I have personally performed a face to face evaluation on this patient. I have r eviewed and agree with the care plan. History and Exam by me shows: Patient is without complaint. He has had 2-3 loose bowel movements but not diarrhea. He denies abdominal pain or nausea. He is still having more improvement in his weakness and control of his left upper extremity. Discussed care with other providers and/or nursing. Patient has no complaint of chest discomfort, dyspnea, orthopnea, palpitations, nausea or vomiting, constipation or diarrhea, other changes in bowel habits, difficulty with urination, rash or itching, or other new complaints, except as mentioned above. Review of systems is otherwise negative. Examination: (Except as mentioned above): General: In no apparent distress. Alert and oriented 3. Nondiaphoretic. Head: Atraumatic and normocephalic. Respiratory: No use of accessory muscles. Lungs are clear throughout. Normal airflow. Cardiovascular: Regular rate and rhythm consistent with A. fib and rate is controlled. Abdomen: Bowel sounds are normal. No hepatosplenomegaly mass or tenderness appreciated. Obese and therefore difficult to palpate deeply. Extremities: No cyanosis clubbing or edema. Skin: Warm and non-diaphoretic with no new lesions noted. Original Note: Date of Encounter: 11/25/18 Time of Encounter: 10:13 - Assessment and plan (1) CVA (cerebrovascular accident due to intracerebral hemorrhage) Current Visit: Yes Status: Acute Assessment and plan: No acute issues. Patient continues with left hemiparesis. Patient states that physical therapy has been progressing well. Patient's strength to his left side appears to have improved over the past week per therapy. Patient is progressing well Qualifiers: Cerebral hemorrhage location: unspecified cerebral location Laterality: right Qualified Code(s): I61.9 - Nontraumatic intracerebral hemorrhage, unspecified (2) HTN (hypertension) Current Visit: Yes Status: Chronic Assessment and plan: Patient continues to have slightly elevated systolic blood pressure between 150- 160. We will continue on current medications and evaluate patient's blood pressures for titration of medications Qualifiers: Hypertension type: essential hypertension Qualified Code(s): I10 - Essential (primary) hypertension (3) Diabetes 1.5, managed as type 2 Current Visit: Yes Status: Chronic Assessment and plan: No acute issues. Patient's glucose has been fairly well-controlled with most readings less than 200. Continue sliding scale coverage and evaluate patient's long-acting coverage for titration (4) Chronic renal disease, stage 3, moderately decreased glomerular filtration rate between 30-59 mL/min/1.73 square meter Current Visit: Yes Status: Chronic Assessment and plan: No acute issues. Patient's current creatinine of 1.05. We will continue to monitor serial labs and continue on current medications (5) A-fib Current Visit: Yes Status: Chronic Assessment and plan: Patient's current ventricular rate is less than 100 controlled. He denies any chest discomforts palpitations. We will continue on current medications. Qualifiers: Atrial fibrillation type: persistent Qualified Code(s): I48.1 - Persistent atrial fibrillation - Time Spent With Patient less than 15 minutes - Subjective Interval history: Patient appears relaxed and currently denies any discomforts or shortness of breath. Patient states that he feels his strength on his left side has improved somewhat. Patient denies any acute neurological changes since his admission - Constitutional Vitals: Temp Pulse Resp BP Pulse Ox 98.0 F 70 18 151/75 94 11/25/18 07:04 11/25/18 07:04 11/25/18 07:04 11/25/18 07:04 11/25/18 07:04 General appearance: Present: cooperative, A&O X 3, pleasant, obese, answers questions appropriately. Absent: severe distress - Head Head exam: Present: atraumatic, normocephalic - Eye Eye exam: Present: PERRL, conjuntiva pink, sclera anicteric Pupils: Present: PERRL - Neck Neck exam general surgery: Present: supple, trachea midline. Absent: lymphadenopathy - Respiratory Respiratory exam: Present: decreased breath sounds, CTAB. Absent: accessory muscle use, rales, rhonchi, wheezes - Cardiovascular Cardiovascular exam: Present: RRR, +S1, +S2. Absent: diastolic murmur, gallop, rubs, systolic murmur - GI/Abdominal GI/Abdominal exam: Present: normal bowel sounds, soft, no peritoneal signs. Absent: distended, tenderness - Extremities Exam Extremities exam: Present: warm, radial pulses palpable and symmetrical. Absent: calf tenderness, cyanotic, pedal edema - Neurological Exam Neurological exam: Present: CN II-XII intact, oriented X3. Absent: pronater drift, facial droop, speech deficit Additional comments: Patient continues with left hemiparesis with his left upper extremity 4/5 muscle strength and has left leg at 4+/5 muscle strength. - Skin Skin exam: Present: dry, intact Internal Medicine: Result - Labs CBC & Chem 7: 11/21/18 07:05 11/23/18 10:50 - VTE Documentation of Mechanical Device: Intermittent pneumatic compression device Consult Discharge Plan - Plan Referrals: Zachary Galdamez, [employer] [Primary Care Provider] -
[2018-11-25 12:46] LABS: BUN/Creatinine Ratio 14 (6-26); Blood Urea Nitrogen 14 mg/dL (8-23); Calcium 9.3 mg/dL (8.6-10.3); Carbon Dioxide 25 mEq/L (23-29); Chloride 104 mEq/L (98-107); Glucose 167 mg/dL (70-105); Osmolality,Calculated 292 (280-300); Potassium 3.9 mEq/L (3.5-5.1); Sodium 139 mEq/L (136-145); eGFR For Non-African Americans > 60 (> 60)
[2018-11-26] MEDS: hydrALAZINE 10 MG TABLET PO SCH ×4 (07:58→23:53)
[2018-11-26] MEDS: Insulin LISPRO 300 UNITS/3 ML VIAL SQ SCH ×4 (08:20→20:47)
[2018-11-26] MEDS: Cyanocobalamin (B-12) 1,000 MCG TABLET PO SCH (08:25)
[2018-11-26] MEDS: *HR* SitaGLIPtin 100 MG TABLET PO SCH (08:25)
[2018-11-26] MEDS: *HR* Glimepiride 4 MG TABLET PO SCH (08:25)
[2018-11-26] MEDS: Magnesium Oxide 400 MG TABLET PO SCH (08:25)
[2018-11-26] MEDS: amLODIPine 5 MG TABLET PO SCH (08:25)
[2018-11-26] MEDS: cloNIDine HCl 0.1 MG TABLET PO PRN (08:34)
--- NOTE | 2018-11-26 10:59 | Internal Med Progress Note ---
Addendum entered and electronically signed by Marques Tapia MD 11/26/18 13:21: I have personally performed a face to face evaluation on this patient. I have r eviewed and agree with the care plan. History and Exam by me shows: Patient is without complaints. He still having 2-3 loose bowel movements per day. Feels this is improved over previous. His asks about persistent use of lactose-free diet. I explained that I would like to see how he does for a while, yet. Discussed care with other providers and/or nursing. Patient has no complaint of chest discomfort, dyspnea, orthopnea, palpitations, nausea or vomiting, constipation or diarrhea, other changes in bowel habits, difficulty with urination, rash or itching, or other new complaints, except as mentioned above. Review of systems is otherwise negative. Examination: (Except as mentioned above): General: In no apparent distress. Alert and oriented 3. Nondiaphoretic. Head: Atraumatic and normocephalic. Respiratory: No use of accessory muscles. Lungs are clear throughout. Normal airflow. Cardiovascular: Regular rate and rhythm without murmur appreciated. Abdomen: Bowel sounds are normal. No hepatosplenomegaly mass or tenderness appreciated. Obese and therefore difficult to palpate deeply. Extremities: No cyanosis clubbing or edema. Skin: Warm and non-diaphoretic with no new lesions noted. Neurologically, the patient still has 4 minus or 4/5 weakness of his left upper extremity this is continuing to improve. He remains ataxic with this extremity. Magnesium and potassium have normalized. Original Note: Date of Encounter: 11/26/18 Time of Encounter: 10:57 - Assessment and plan (1) CVA (cerebrovascular accident due to intracerebral hemorrhage) Current Visit: Yes Status: Acute Assessment and plan: No acute issues. Patient continues with left hemiparesis with muscle strength 4/5. Patient states that physical therapy has been progressing well. Patient's strength to his left side appears to have improved over the past week per therapy. Patient is progressing well per therapy Qualifiers: Cerebral hemorrhage location: unspecified cerebral location Laterality: right Qualified Code(s): I61.9 - Nontraumatic intracerebral hemorrhage, unspecified (2) HTN (hypertension) Current Visit: Yes Status: Chronic Assessment and plan: Patient continues to have slightly elevated systolic blood pressure between 150- 160. We will continue on current medications and evaluate patient's blood pressures for titration of medications Qualifiers: Hypertension type: essential hypertension Qualified Code(s): I10 - Essential (primary) hypertension (3) Diabetes 1.5, managed as type 2 Current Visit: Yes Status: Chronic Assessment and plan: No acute issues. Patient's glucose has been fairly well-controlled with most readings less than 200. Continue sliding scale coverage and evaluate patient's long-acting coverage for titration (4) Chronic renal disease, stage 3, moderately decreased glomerular filtration rate between 30-59 mL/min/1.73 square meter Current Visit: Yes Status: Chronic Assessment and plan: No acute issues. Patient's current creatinine of 1.05. We will continue to monitor serial labs and continue on current medications (5) A-fib Current Visit: Yes Status: Chronic Assessment and plan: Patient's current ventricular rate is less than 100 controlled. He denies any chest discomforts palpitations. We will continue on current medications. Qualifiers: Atrial fibrillation type: persistent Qualified Code(s): I48.1 - Persistent atrial fibrillation - Time Spent With Patient less than 15 minutes - Subjective Interval history: Patient appears relaxed and currently denies any discomforts or shortness of breath. Patient states that he feels his strength on his left side has improved somewhat. Patient denies any acute neurological changes since his admission - Constitutional Vitals: Temp Pulse Resp BP Pulse Ox 99.4 F 79 17 185/64 93 11/26/18 08:20 11/26/18 08:20 11/26/18 08:20 11/26/18 08:20 11/26/18 08:20 General appearance: Present: cooperative, A&O X 3, pleasant, obese, answers questions appropriately. Absent: severe distress - Head Head exam: Present: atraumatic, normocephalic - Eye Eye exam: Present: PERRL, conjuntiva pink, sclera anicteric Pupils: Present: PERRL - Neck Neck exam general surgery: Present: supple, trachea midline. Absent: lymphadenopathy - Respiratory Respiratory exam: Present: CTAB. Absent: accessory muscle use, rales, rhonchi, wheezes - Cardiovascular Cardiovascular exam: Present: RRR, +S1, +S2. Absent: diastolic murmur, gallop, rubs, systolic murmur - GI/Abdominal GI/Abdominal exam: Present: normal bowel sounds, soft, no peritoneal signs. Absent: distended, tenderness - Extremities Exam Extremities exam: Present: warm, radial pulses palpable and symmetrical. Absent: calf tenderness, cyanotic, pedal edema - Neurological Exam Neurological exam: Present: CN II-XII intact, oriented X3. Absent: pronater dri ft, facial droop, speech deficit Additional comments: Patient continues to have left hemiparesis with left extremities 4/5 muscle strength. Right extremities at 5/5 muscle strength. - Skin Skin exam: Present: dry, intact Internal Medicine: Result - Labs CBC & Chem 7: 11/21/18 07:05 11/25/18 12:27 Labs: BMP 11/25/18 12:27 Sodium 139 Potassium 3.9 Chloride 104 Carbon Dioxide 25 BUN 14 Creatinine 1.01 Glucose 167 H Calcium 9.3 - VTE Documentation of Mechanical Device: Intermittent pneumatic compression device Consult Discharge Plan - Plan Referrals: Zachary Galdamez CNP [Primary Care Provider] -
[2018-11-26] MEDS: Acetaminophen 325 MG TABLET PO PRN (20:43)
[2018-11-27] MEDS: hydrALAZINE 10 MG TABLET PO SCH ×4 (05:22→23:50)
[2018-11-27] MEDS: Magnesium Oxide 400 MG TABLET PO SCH (09:24)
[2018-11-27] MEDS: amLODIPine 5 MG TABLET PO SCH (09:24)
[2018-11-27] MEDS: Cyanocobalamin (B-12) 1,000 MCG TABLET PO SCH (09:24)
[2018-11-27] MEDS: *HR* SitaGLIPtin 100 MG TABLET PO SCH (09:24)
[2018-11-27] MEDS: *HR* Glimepiride 4 MG TABLET PO SCH (09:25)
[2018-11-27] MEDS: Insulin LISPRO 300 UNITS/3 ML VIAL SQ SCH ×4 (09:25→19:48)
--- NOTE | 2018-11-27 10:28 | Internal Med Progress Note ---
Addendum entered and electronically signed by Evelina Rosales 11/29/18 15:24: Original Note: Date of Encounter: 11/27/18 Time of Encounter: 10:26 - Assessment and plan (1) CVA (cerebrovascular accident due to intracerebral hemorrhage) Current Visit: Yes Status: Acute Assessment and plan: No acute issues. Patient continues with left hemiparesis with muscle strength 4/5. Patient states that physical therapy has been progressing well. Patient's strength to his left side appears to have improved over the past week per therapy. Patient is progressing well per therapy Qualifiers: Cerebral hemorrhage location: unspecified cerebral location Laterality: right Qualified Code(s): I61.9 - Nontraumatic intracerebral hemorrhage, unspecified (2) HTN (hypertension) Current Visit: Yes Status: Chronic Assessment and plan: Patient continues to have slightly elevated systolic blood pressure between 150-160. We will continue on current medications and evaluate patient's blood pressures for titration of medications Qualifiers: Hypertension type: essential hypertension Qualified Code(s): I10 - Essential (primary) hypertension (3) Diabetes 1.5, managed as type 2 Current Visit: Yes Status: Chronic Assessment and plan: No acute issues. Patient's glucose has been fairly well-controlled with most readings less than 200. Continue sliding scale coverage and evaluate patient's long-acting coverage for titration (4) Chronic renal disease, stage 3, moderately decreased glomerular filtration rate between 30-59 mL/min/1.73 square meter Current Visit: Yes Status: Chronic Assessment and plan: No acute issues. Patient's current creatinine of 1.01. We will continue to monitor serial labs and continue on current medications (5) A-fib Current Visit: Yes Status: Chronic Assessment and plan: Patient's current ventricular rate is less than 100 controlled. He denies any chest discomforts palpitations. We will continue on current medications. Qualifiers: Atrial fibrillation type: persistent Qualified Code(s): I48.1 - Persistent atrial fibrillation - Time Spent With Patient less than 15 minutes - Subjective Interval history: Patient appears relaxed and currently denies any discomforts or shortness of breath. Patient states that he feels his strength on his left side has improved. Patient denies any acute neurological changes since his admission - Constitutional Vitals: Temp Pulse Resp BP Pulse Ox 98.5 F 93 16 189/83 92 11/27/18 08:10 11/27/18 08:10 11/27/18 08:10 11/27/18 08:10 11/27/18 08:10 General appearance: Present: cooperative, A&O X 3, pleasant, obese, answers questions appropriately. Absent: severe distress - Head Head exam: Present: atraumatic, normocephalic - Eye Eye exam: Present: PERRL, conjuntiva pink, sclera anicteric Pupils: Present: PERRL - Neck Neck exam general surgery: Present: supple, trachea midline. Absent: lymphadenopathy - Respiratory Respiratory exam: Present: CTAB. Absent: accessory muscle use, rales, rhonchi, wheezes - Cardiovascular Cardiovascular exam: Present: RRR, +S1, +S2. Absent: diastolic murmur, gallop, rubs, systolic murmur - GI/Abdominal GI/Abdominal exam: Present: normal bowel sounds, soft, no peritoneal signs. Abs ent: distended, tenderness - Extremities Exam Extremities exam: Present: warm, radial pulses palpable and symmetrical. Absent: calf tenderness, cyanotic, pedal edema - Neurological Exam Neurological exam: Present: CN II-XII intact, oriented X3. Absent: pronater drift, facial droop, speech deficit Additional comments: Patient continues to have left hemiparesis with his left extremities at 4/5 muscle strength in right extremities at 5/5 muscle strength - Skin Skin exam: Present: dry, intact Internal Medicine: Result - Labs CBC & Chem 7: 11/21/18 07:05 11/25/18 12:27 - VTE Documentation of Mechanical Device: Intermittent pneumatic compression device Consult Discharge Plan - Plan Referrals: Zachary Galdamez CNP [Primary Care Provider] -
[2018-11-27] MEDS: Acetaminophen 325 MG TABLET PO PRN (20:02)
[2018-11-28] MEDS: hydrALAZINE 10 MG TABLET PO SCH ×3 (05:32→17:52)
[2018-11-28 06:15] LABS: Hematocrit 26.8 % (37.5-50.1); Hemoglobin 8.9 g/dL (12.9-16.9); Mean Corpuscular HGB Conc 33.2 g/dL (31.6-35.5); Mean Corpuscular Hemoglobin 29.2 pg (28.0-33.3); Mean Corpuscular Volume 87.9 fL (83.0-100.0); Platelet Count 175 K/mcL (140-400); Red Blood Count 3.05 M/mcL (4.19-5.50); Red Cell Distribution Width 13.7 % (11.5-14.5)
[2018-11-28 06:46] LABS: Alanine Aminotransferase 10 Units/L (7-52); Albumin 3.4 g/dL (3.5-5.7); Albumin/Globulin Ratio 1.2 (1.1-2.2); Alkaline Phosphatase 83 Units/L (34-104); Aspartate Amino Transferase 12 Units/L (13-39); BUN/Creatinine Ratio 15 (6-26); Bilirubin,Total 0.8 mg/dL (0.3-1.0); Blood Urea Nitrogen 15 mg/dL (8-23); Calcium 8.8 mg/dL (8.6-10.3); Carbon Dioxide 25 mEq/L (23-29); Chloride 104 mEq/L (98-107); Globulin 2.8 g/dL (2.4-3.5); Glucose 98 mg/dL (70-105); Magnesium 1.8 mg/dL (1.6-2.6); Osmolality,Calculated 285 (280-300); Potassium 3.6 mEq/L (3.5-5.1); Sodium 137 mEq/L (136-145); Total Protein 6.2 g/dL (6.4-8.9); eGFR For Non-African Americans > 60 (> 60)
[2018-11-28] MEDS: amLODIPine 5 MG TABLET PO SCH (08:14)
[2018-11-28] MEDS: *HR* Glimepiride 4 MG TABLET PO SCH (08:14)
[2018-11-28] MEDS: Acetaminophen 325 MG TABLET PO PRN ×2 (08:14→20:46)
[2018-11-28] MEDS: Cyanocobalamin (B-12) 1,000 MCG TABLET PO SCH (08:14)
[2018-11-28] MEDS: *HR* SitaGLIPtin 100 MG TABLET PO SCH (08:14)
[2018-11-28] MEDS: Magnesium Oxide 400 MG TABLET PO SCH (08:14)
[2018-11-28] MEDS: Insulin LISPRO 300 UNITS/3 ML VIAL SQ SCH ×4 (08:18→20:59)
--- NOTE | 2018-11-28 14:44 | Internal Med Progress Note ---
Date of Encounter: 11/29/18 Time of Encounter: 22:50 - Subjective Interval history: - Assessment and plan (1) CVA (cerebrovascular accident due to intracerebral hemorrhage) Current Visit: Yes Status: Acute Assessment and plan: Hemorrhagic pontine. Previous 4 strokes were ischemic. PT was taken off anti coagulant for duration of a month. Patient continues with left hemiparesis with muscle strength 4/5. Patient states that physical therapy has been progressing well. Patient's strength to his left side appears to have improved over the past week per therapy. No new issues. He is trying to wheel self in wheelchair with r arm. Patient is progressing well per therapy with no new weakness no head ache. Oriented x 3 Qualifiers: Cerebral hemorrhage location: unspecified cerebral location Laterality: right Qualified Code(s): I61.9 - Nontraumatic intracerebral hemorrhage, unspecified (2) HTN (hypertension) Current Visit: Yes Status: Chronic Assessment and plan: Patient has systolic 150-160. This is current goal range 140 to 150 We will continue on current medications and evaluate patient's blood pressures for titration of medications Qualifiers: Hypertension type: essential hypertension Qualified Code(s): I10 - Essential (primary) hypertension (3) Diabetes 1.5, managed as type 2 Current Visit: Yes Status: Chronic Assessment and plan: No acute issues. Patient's glucose has been fairly well-controlled with most readings less than 200. He is on AMARYL 4 mg will monitor to avoid possible hypoglycemia. He is also on januvia. Continue sliding scale coverage and evaluate patient's long-acting coverage for titration Does have hx b12 def (4) Chronic renal disease, stage 3, moderately decreased glomerular filtration rate between 30-59 mL/min/1.73 square meter Current Visit: Yes Status: Chronic Assessment and plan: No acute issues. Patient's current creatinine of 1.01. We will continue to monitor serial labs and continue on current medications (5) A-fib Current Visit: Yes Status: Chronic Assessment and plan: Patient's current ventricular rate is less than 100 controlled. He denies any chest discomforts palpitations. We will continue on current medications. currently off blood thinner for hem cva Qualifiers: Atrial fibrillation type: persistent Qualified Code(s): I48.1 - Persistent atrial fibrillation (6) Hx Anemia Hb over 8 no active bleed will repeat cbc hx b12 Def will recheck to see if Oral B12 being absorbed. check iron and Retic count (7) hx hypothyroid on synthoid will check TSH. if abnormal check Free T4 and T3 - Time Spent With Patient less than 15 minutes - Subjective Interval history: Patient talkative , up in chair. He has grand dtr Nba and great grand son visiting Pt is supportive. Patient states that he feels his strength on his left side has improved slightly. Pt participating in Rehab, says its a good work out. He is eating well. Patient denies any acute neurological changes since his admission - Constitutional General appearance: Present: cooperative, A&O X 3, pleasant, very [place] , answers questions appropriately. good eye contact - Eye Eye exam: Present: PERRL, conjuntiva pink, sclera anicteric Pupils: Present: PERRL - Neck Neck exam general surgery: Present: supple, trachea midline. Absent: lymphadenopathy - Respiratory Respiratory exam: Present: CTAB. Absent: accessory muscle use, rales, rhonchi, wheezes - Cardiovascular Cardiovascular exam: Present: irregular , +S1, +S2. Absent: diastolic murmur, gallop, rubs, systolic murmur - GI/Abdominal GI/Abdominal exam: Present: normal bowel sounds, soft, no peritoneal signs. Absent: distended, tenderness - Extremities Exam Extremities exam: Present: warm, radial pulses palpable and symmetrical. Absent: calf tenderness, cyanotic, pedal edema - Neurological Exam Neurological exam: Present: CN II-XII intact, oriented X3. Absent: pronater drift, facial droop, speech deficit Additional comments: Patient continues to have left hemiparesis with his left extremities at 4/5 muscle strength in right extremities at 5/5 muscle strength - Skin Skin exam: Present: dry, intact - Constitutional Vitals: Temp Pulse Resp BP Pulse Ox 98.4 F 81 16 169/65 94 11/28/18 07:27 11/28/18 07:27 11/28/18 07:27 11/28/18 12:53 11/28/18 07:27 General appearance: Present: cooperative, A&O X 3, pleasant, obese, answers questions appropriately. Absent: severe distress Internal Medicine: Result - Labs CBC & Chem 7: 11/28/18 05:30 11/28/18 05:30 Labs: Short CBC 11/28/18 Range/Units 05:30 WBC 4.5 (4.3-11.1) K/mcL Hgb 8.9 L (12.9-16.9) g/dL Hct 26.8 L (37.5-50.1) % Plt Count 175 (140-400) K/mcL BMP 11/28/18 05:30 Sodium 137 Potassium 3.6 Chloride 104 Carbon Dioxide 25 BUN 15 Creatinine 1.02 Glucose 98 Calcium 8.8 Liver Function 11/28/18 Range/Units 05:30 Total Bilirubin 0.8 (0.3-1.0) mg/dL AST 12 L (13-39) Units/L ALT 10 (7-52) Units/L Alkaline Phosphatase 83 (34-104) Units/L Albumin 3.4 L (3.5-5.7) g/dL - VTE Documentation of Mechanical Device: Intermittent pneumatic compression device Consult Discharge Plan - Plan Referrals: Zachary Galdamez CNP [Primary Care Provider] -
[2018-11-29] MEDS: hydrALAZINE 10 MG TABLET PO SCH ×4 (01:28→17:24)
[2018-11-29] MEDS: amLODIPine 5 MG TABLET PO SCH (08:21)
[2018-11-29] MEDS: Magnesium Oxide 400 MG TABLET PO SCH (08:21)
[2018-11-29] MEDS: Cyanocobalamin (B-12) 1,000 MCG TABLET PO SCH (08:21)
[2018-11-29] MEDS: *HR* SitaGLIPtin 100 MG TABLET PO SCH (08:22)
[2018-11-29] MEDS: *HR* Glimepiride 4 MG TABLET PO SCH (08:23)
[2018-11-29] MEDS: Insulin LISPRO 300 UNITS/3 ML VIAL SQ SCH ×4 (08:24→20:30)
--- NOTE | 2018-11-29 14:29 | Internal Med Progress Note ---
Date of Encounter: 11/29/18 Time of Encounter: 02:20 - Subjective Interval history: - Assessment and plan (1) CVA (cerebrovascular accident due to intracerebral hemorrhage) Current Visit: Yes Status: Acute Assessment and plan: Hemorrhagic pontine. Previous 4 strokes were ischemic. PT was taken off anti coagulant for duration of a month. Patient continues with left hemiparesis with muscle strength 4/5. Patient states that physical therapy has been progressing well. Patient's strength to his left side appears to have improved over the past week per therapy. No new issues. He is trying to wheel self in wheelchair with r arm. Patient is progressing well per therapy with no new weakness no head ache. Oriented x 3 Qualifiers: Cerebral hemorrhage location: unspecified cerebral location Laterality: right Qualified Code(s): I61.9 - Nontraumatic intracerebral hemorrhage, unspecified (2) HTN (hypertension) Current Visit: Yes Status: Chronic Assessment and plan: Patient has systolic 150-160. This is current goal range 140 to 150 We will continue on current medications and evaluate patient's blood pressures for titration of medications Qualifiers: Hypertension type: essential hypertension Qualified Code(s): I10 - Essential (primary) hypertension (3) Diabetes 1.5, managed as type 2 Current Visit: Yes Status: Chronic Assessment and plan: No acute issues. Patient's glucose has been fairly well-controlled with most readings less than 200. He is on AMARYL 4 mg will monitor to avoid possible hypoglycemia. He is also on januvia. Continue sliding scale coverage and evaluate patient's long-acting coverage for titration Does have hx b12 def (4) Chronic renal disease, stage 3, moderately decreased glomerular filtration rate between 30-59 mL/min/1.73 square meter Current Visit: Yes Status: Chronic Assessment and plan: No acute issues. Patient's current creatinine of 1.01. We will continue to monitor serial labs and continue on current medications (5) A-fib Current Visit: Yes Status: Chronic Assessment and plan: Patient's current ventricular rate is less than 100 controlled. He denies any chest discomforts palpitations. We will continue on current medications. currently off blood thinner for hem cva Qualifiers: Atrial fibrillation type: persistent Qualified Code(s): I48.1 - Persistent atrial fibrillation (6) Hx Anemia Hb over 8 no active bleed will repeat cbc hx b12 Def will recheck to see if Oral B12 being absorbed. check iron and Retic count (7) hx hypothyroid on synthoid will check TSH. if abnormal check Free T4 and T3 - Time Spent With Patient less than 15 minutes - Subjective Interval history: Patient talkative , up in chair. Mood good. Pt is supportive. Patient states that he feels his strength on his left side has improved slightly. Pt participating in Rehab, says its a good work out. He is eating well. Patient denies any acute neurological changes since his admission - Constitutional General appearance: Present: cooperative, A&O X 3, pleasant, very [place] , answers questions appropriately. good eye contact More energetic - Eye Eye exam: Present: PERRL, conjuntiva pink Pupils: Present: PERRL - Neck Neck exam general surgery: Present: supple, trachea midline. Absent: lymphadenopathy - Respiratory Respiratory exam: Present: CTAB. Absent: accessory muscle use, rales, rhonchi, wheezes - Cardiovascular Cardiovascular exam: Present: irregular , +S1, +S2. Absent: trace SM - GI/Abdominal GI/Abdominal exam: Present: normal bowel sounds, soft, no peritoneal signs. Ab sent: distended, tenderness - Extremities Exam Extremities exam: Present: warm, radial pulses palpable and symmetrical. Absent: calf tenderness, cyanotic, pedal edema - Neurological Exam Neurological exam: Present: CN II-XII intact, oriented X3. Absent: pronater drift, facial droop, speech deficit Additional comments: Patient continues to have left hemiparesis with his left extremities at 4/5 muscle strength in right extremities at 5/5 muscle strength - Skin Skin exam: Present: dry, intact - Constitutional Vitals: Temp Pulse Resp BP Pulse Ox 98.2 F 76 16 136/62 90 11/29/18 08:00 11/29/18 08:00 11/29/18 08:00 11/29/18 08:00 11/29/18 08:00 General appearance: Present: cooperative, A&O X 3, pleasant, obese, answers questions appropriately. Absent: severe distress Internal Medicine: Result - Labs CBC & Chem 7: 11/28/18 05:30 11/28/18 05:30 - VTE Documentation of Mechanical Device: Intermittent pneumatic compression device Consult Discharge Plan - Plan Referrals: Zachary Galdamez CNP [Primary Care Provider] -
[2018-11-29] MEDS: Multivit/Ca/Min/Fe/FA 1 TAB TABLET PO SCH (15:31)
[2018-11-29] MEDS: Acetaminophen 325 MG TABLET PO PRN (20:24)
[2018-11-30] MEDS: hydrALAZINE 10 MG TABLET PO SCH ×4 (00:07→17:13)
[2018-11-30] MEDS: Acetaminophen 325 MG TABLET PO PRN ×2 (02:09→21:28)
[2018-11-30 05:47] LABS: Hematocrit 26.7 % (37.5-50.1); Hemoglobin 8.7 g/dL (12.9-16.9); Mean Corpuscular HGB Conc 32.6 g/dL (31.6-35.5); Mean Corpuscular Hemoglobin 29.2 pg (28.0-33.3); Mean Corpuscular Volume 89.6 fL (83.0-100.0); Mean Platelet Volume 9.9 fL (9.4-12.4); Platelet Count 172 K/mcL (140-400); Red Blood Count 2.98 M/mcL (4.19-5.50); Red Cell Distribution Width 13.8 % (11.5-14.5); Retculocyte # 0.07 M/mcL (0.05-0.10); Reticulocyte % 2.4 % (1.6-2.8)
[2018-11-30 06:01] LABS: BUN/Creatinine Ratio 13 (6-26); Blood Urea Nitrogen 13 mg/dL (8-23); Calcium 8.8 mg/dL (8.6-10.3); Carbon Dioxide 26 mEq/L (23-29); Chloride 106 mEq/L (98-107); Glucose 92 mg/dL (70-105); Osmolality,Calculated 286 (280-300); Potassium 3.9 mEq/L (3.5-5.1); Sodium 138 mEq/L (136-145); eGFR For Non-African Americans > 60 (> 60)
[2018-11-30 06:14] LABS: Thyroid Stimulating Hormone 2.054 mcIU/mL (0.340-5.600)
[2018-11-30] MEDS: Insulin LISPRO 300 UNITS/3 ML VIAL SQ SCH ×4 (08:06→22:01)
[2018-11-30 08:48] LABS: % Iron Saturation 12 % (20-55); Iron 40 mcg/dL (65-175); Transferrin 231 mg/dL (203-362)
[2018-11-30] MEDS: cloNIDine HCl 0.1 MG TABLET PO PRN (08:55)
[2018-11-30] MEDS: Cyanocobalamin (B-12) 1,000 MCG TABLET PO SCH (08:55)
[2018-11-30] MEDS: Magnesium Oxide 400 MG TABLET PO SCH (08:55)
[2018-11-30] MEDS: amLODIPine 5 MG TABLET PO SCH (08:55)
[2018-11-30] MEDS: Multivit/Ca/Min/Fe/FA 1 TAB TABLET PO SCH (08:56)
[2018-11-30] MEDS: *HR* Glimepiride 4 MG TABLET PO SCH (08:56)
[2018-11-30] MEDS: *HR* SitaGLIPtin 100 MG TABLET PO SCH (08:56)
--- NOTE | 2018-11-30 09:24 | Internal Med Progress Note ---
Date of Encounter: 11/30/18 Time of Encounter: 09:24 - Assessment and plan (1) CVA (cerebrovascular accident due to intracerebral hemorrhage) Current Visit: Yes Status: Acute Assessment and plan: He is continuing to improve. He had a CAT scan which showed a resolving hemorrhage, early this morning. This is to be taken with him to his neurology appointment in 2 days. Qualifiers: Cerebral hemorrhage location: unspecified cerebral location Laterality: right Qualified Code(s): I61.9 - Nontraumatic intracerebral hemorrhage, unspecified (2) HTN (hypertension) Current Visit: Yes Status: Chronic Assessment and plan: He still has occasional elevation of blood pressure. Will follow. Qualifiers: Hypertension type: essential hypertension Qualified Code(s): I10 - Essential (primary) hypertension (3) Diabetes 1.5, managed as type 2 Current Visit: Yes Status: Chronic Assessment and plan: Clinically and numerically stable. Will follow. (4) A-fib Current Visit: Yes Status: Chronic Assessment and plan: Clinically stable and rate is controlled. We are unable to anticoagulate because of his recent pontine hemorrhage. Qualifiers: Atrial fibrillation type: persistent Qualified Code(s): I48.1 - Persistent atrial fibrillation (5) Chronic renal disease, stage 3, moderately decreased glomerular filtration rate between 30-59 mL/min/1.73 square meter Current Visit: Yes Status: Chronic Assessment and plan: Stable on recent laboratory assessments. (6) Hypomagnesemia Current Visit: Yes Status: Acute - Subjective Interval history: Patient is without complaint except he has some mild amount of left lower extremity pain which she thinks is muscular because he overworked me yesterday. He denies other problems and bowels are about like usual for him. 2 loose bowel movements, within the last 24 hours. No or melena. Discussed care with other providers and/or nursing. Patient has no complaint of chest discomfort, dyspnea, orthopnea, palpitations, nausea or vomiting, constipation or diarrhea, other changes in bowel habits, difficulty with urination, rash or itching, or other new complaints, except as mentioned above. Review of systems is otherwise negative. - Constitutional Vitals: Temp Pulse Resp BP Pulse Ox 97.9 F 71 15 187/67 91 11/30/18 07:43 11/30/18 07:43 11/30/18 07:43 11/30/18 07:43 11/30/18 07:43 Exam: Examination: (Except as mentioned above): General: In no apparent distress. Alert and oriented 3. Nondiaphoretic. Head: Atraumatic and normocephalic. Respiratory: No use of accessory muscles. Lungs are clear throughout. Normal airflow. Cardiovascular: Irregularly irregular consistent with atrial fibrillation without murmur appreciated. Abdomen: Bowel sounds are normal. No hepatosplenomegaly mass or tenderness appreciated. Obese and therefore difficult to palpate deeply. Extremities: No cyanosis clubbing or edema. Skin: Warm and non-diaphoretic with no new lesions noted. Internal Medicine: Result - Labs CBC & Chem 7: 11/30/18 05:10 11/30/18 05:10 Labs: Short CBC 11/30/18 Range/Units 05:10 WBC 4.6 (4.3-11.1) K/mcL Hgb 8.7 L (12.9-16.9) g/dL Hct 26.7 L (37.5-50.1) % Plt Count 172 (140-400) K/mcL BMP 11/30/18 05:10 Sodium 138 Potassium 3.9 Chloride 106 Carbon Dioxide 26 BUN 13 Creatinine 1.03 Glucose 92 Calcium 8.8 - Impressions Impressions Head CT 11/30/18 08:00 IMPRESSION: Small rounded focal area of hyperdensity is seen along the lateral aspect of the right thalamus at the site of prior hemorrhage, significantly decreased in size. This may represent small residual area of hemorrhage versus developing calcification. No mass effect. Moderate white matter changes consistent with chronic small vessel ischemic disease. The findings were sent to the [facility] at 7:32 am on 11/30/2018to be communicated to a licensed caregiver. D/ / Argenis Jones MD / Argenis Jones MD Interpreting Provider: Argenis Jones MD - VTE Documentation of Mechanical Device: Intermittent pneumatic compression device Consult Discharge Plan - Plan Referrals: Zachary Galdamez, [employer] [Primary Care Provider] -
[2018-12-01] MEDS: hydrALAZINE 10 MG TABLET PO SCH ×5 (02:22→23:52)
[2018-12-01] MEDS: Acetaminophen 325 MG TABLET PO PRN ×2 (04:03→20:42)
[2018-12-01] MEDS: Insulin LISPRO 300 UNITS/3 ML VIAL SQ SCH ×4 (08:33→20:53)
[2018-12-01] MEDS: Cyanocobalamin (B-12) 1,000 MCG TABLET PO SCH (09:02)
[2018-12-01] MEDS: Magnesium Oxide 400 MG TABLET PO SCH (09:02)
[2018-12-01] MEDS: amLODIPine 5 MG TABLET PO SCH (09:02)
[2018-12-01] MEDS: *HR* SitaGLIPtin 100 MG TABLET PO SCH (09:02)
[2018-12-01] MEDS: Multivit/Ca/Min/Fe/FA 1 TAB TABLET PO SCH (09:02)
[2018-12-01] MEDS: *HR* Glimepiride 4 MG TABLET PO SCH (09:02)
--- NOTE | 2018-12-01 15:22 | Internal Med Progress Note ---
Addendum entered and electronically signed by Marques Tapia MD 12/01/18 16:01: I have personally performed a face to face evaluation on this patient. I have r eviewed and agree with the care plan. History and Exam by me shows: Patient is without complaint. However, he admits to left lower extremity pain and cramping, at night. He feels this is because of work with therapy, during the day. Bowels have not changed significantly. He denies abdominal pain. He denies lightheadedness or dizziness. Discussed care with other providers and/or nursing. Patient has no complaint of chest discomfort, dyspnea, orthopnea, palpitations, nausea or vomiting, constipation or diarrhea, other changes in bowel habits, difficulty with urination, rash or itching, or other new complaints, except as mentioned above. Review of systems is otherwise negative. Examination: (Except as mentioned above): General: In no apparent distress. Alert and oriented 3. Nondiaphoretic. Head: Atraumatic and normocephalic. Respiratory: No use of accessory muscles. Lungs are clear throughout. Normal airflow. Cardiovascular: Irregularly irregular consistent with atrial fibrillation with good rate control, without murmur appreciated. Abdomen: Bowel sounds are normal. No hepatosplenomegaly mass or tenderness appreciated. Obese and therefore difficult to palpate deeply. Patient is examined upright in chair and this also limits exam. Extremities: No cyanosis clubbing or change in edema. Skin: Warm and non-diaphoretic with no new lesions noted. Original Note: Date of Encounter: 12/01/18 Time of Encounter: 15:21 - Assessment and plan (1) CVA (cerebrovascular accident due to intracerebral hemorrhage) Current Visit: Yes Status: Acute Assessment and plan: No acute issues. Patient continues with left hemiparesis with muscle strength 4/5. Patient states that physical therapy has been progressing well. Patient's strength to his left side appears to have improved over the past week per therapy. Patient is progressing well per therapy Qualifiers: Cerebral hemorrhage location: unspecified cerebral location Laterality: right Qualified Code(s): I61.9 - Nontraumatic intracerebral hemorrhage, unspecified (2) HTN (hypertension) Current Visit: Yes Status: Chronic Assessment and plan: Patient continues to have slightly elevated systolic blood pressure between 150-160. We will continue on current medications and evaluate patient's blood pressures for titration of medications Qualifiers: Hypertension type: essential hypertension Qualified Code(s): I10 - Essential (primary) hypertension (3) Diabetes 1.5, managed as type 2 Current Visit: Yes Status: Chronic Assessment and plan: No acute issues. Patient's glucose has been fairly well-controlled with most readings less than 200. Continue sliding scale coverage and evaluate patient's long-acting coverage for titration (4) Chronic renal disease, stage 3, moderately decreased glomerular filtration rate between 30-59 mL/min/1.73 square meter Current Visit: Yes Status: Chronic Assessment and plan: No acute issues. Patient's current creatinine of 1.01. We will continue to monitor serial labs and continue on current medications (5) A-fib Current Visit: Yes Status: Chronic Assessment and plan: Patient's current ventricular rate is less than 100 controlled. He denies any chest discomforts palpitations. We will continue on current medications. Qualifiers: Atrial fibrillation type: persistent Qualified Code(s): I48.1 - Persistent atrial fibrillation - Subjective Interval history: Patient appears relaxed and currently denies any discomforts or shortness of breath. Patient states that he feels his strength on his left side has improved. Patient denies any acute neurological changes since his admission - Constitutional Vitals: Temp Pulse Resp BP Pulse Ox 98.9 F 68 16 148/63 91 12/01/18 08:00 12/01/18 12:22 12/01/18 08:00 12/01/18 12:22 12/01/18 08:00 General appearance: Present: cooperative, A&O X 3, pleasant, obese, answers questions appropriately. Absent: severe distress - Head Head exam: Present: atraumatic, normocephalic - Eye Eye exam: Present: PERRL, conjuntiva pink, sclera anicteric Pupils: Present: PERRL - Neck Neck exam general surgery: Present: supple, trachea midline. Absent: lymphadenopathy - Respiratory Respiratory exam: Present: CTAB. Absent: accessory muscle use, rales, rhonchi, wheezes - Cardiovascular Cardiovascular exam: Present: RRR, +S1, +S2. Absent: diastolic murmur, gallop, rubs, systolic murmur - GI/Abdominal GI/Abdominal exam: Present: normal bowel sounds, soft, no peritoneal signs. Absent: distended, tenderness - Extremities Exam Extremities exam: Present: warm, radial pulses palpable and symmetrical. Absent: calf tenderness, cyanotic, pedal edema - Neurological Exam Neurological exam: Present: CN II-XII intact, oriented X3. Absent: pronater drift, facial droop, speech deficit Additional comments: Patient continues to have slight left hemiparesis with left extremity muscle strength 4+/5 muscle strength and right extremities at 5/5 muscle strength - Skin Skin exam: Present: dry, intact Internal Medicine: Result - Labs CBC & Chem 7: 11/30/18 05:10 11/30/18 05:10 - VTE Documentation of Mechanical Device: Intermittent pneumatic compression device Consult Discharge Plan - Plan Referrals: Zachary Galdamez CNP [Primary Care Provider] -
[2018-12-02] MEDS: *HR* Glimepiride 4 MG TABLET PO SCH (06:21)
[2018-12-02] MEDS: Cyanocobalamin (B-12) 1,000 MCG TABLET PO SCH (06:22)
[2018-12-02] MEDS: amLODIPine 5 MG TABLET PO SCH (06:22)
[2018-12-02] MEDS: Multivit/Ca/Min/Fe/FA 1 TAB TABLET PO SCH (06:23)
[2018-12-02] MEDS: Magnesium Oxide 400 MG TABLET PO SCH (06:23)
[2018-12-02] MEDS: hydrALAZINE 10 MG TABLET PO SCH ×4 (06:23→23:18)
[2018-12-02] MEDS: *HR* SitaGLIPtin 100 MG TABLET PO SCH (06:23)
[2018-12-02] MEDS: Acetaminophen 325 MG TABLET PO PRN ×2 (06:53→18:01)
[2018-12-02] MEDS: Insulin LISPRO 300 UNITS/3 ML VIAL SQ SCH ×4 (08:38→20:43)
--- NOTE | 2018-12-02 10:28 | Event Note ---
Addendum entered and electronically signed by Marques Tapia MD 12/02/18 11:03: Original Note: Date of Encounter: 12/02/18 Time of Encounter: 10:27 Patient has not seen today due to him being off the unit for a follow-up visit with his neurosurgeon
--- NOTE | 2018-12-02 13:38 | Internal Med Progress Note ---
Date of Encounter: 12/02/18 Time of Encounter: 13:35 - Assessment and plan (1) CVA (cerebrovascular accident due to intracerebral hemorrhage) Current Visit: Yes Status: Acute Assessment and plan: As requested, will resume his xarelto and obtain a CT scan 2 days. Qualifiers: Cerebral hemorrhage location: unspecified cerebral location Laterality: right Qualified Code(s): I61.9 - Nontraumatic intracerebral hemorrhage, unspecified (2) HTN (hypertension) Current Visit: Yes Status: Chronic Assessment and plan: Acceptable control, for now. Will follow. 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 (4) A-fib Current Visit: Yes Status: Chronic Assessment and plan: Rate is controlled. Qualifiers: Atrial fibrillation type: persistent Qualified Code(s): I48.1 - Persistent atrial fibrillation (5) Chronic renal disease, stage 3, moderately decreased glomerular filtration rate between 30-59 mL/min/1.73 square meter Current Visit: Yes Status: Chronic (6) Hypomagnesemia Current Visit: Yes Status: Acute - Subjective Interval history: Patient just returned from his neurology appointment. He was told that area of hemorrhage is markedly decreased in size and he can resume xarelto. However, he is to have the scan in 2 days to make sure he is not increasing in size after xarelto. iss resumed. She notes shortness of breath on his transport to appointment. However patient minimizes and states this is no worse than usual. Patient has no other complaints. Patient has no complaint of chest discomfort, dyspnea, orthopnea, palpitations, nausea or vomiting, constipation or diarrhea, other changes in bowel habits, difficulty with urination, rash or itching, or other new complaints, except as mentioned above. Review of systems is otherwise negative. - Constitutional Vitals: Temp Pulse Resp BP Pulse Ox 98.3 F 86 15 146/76 92 12/02/18 04:10 12/02/18 04:10 12/02/18 04:10 12/02/18 04:10 12/02/18 04:10 Exam: Examination: (Except as mentioned above): General: In no apparent distress. Alert and oriented 3. Nondiaphoretic. Head: Atraumatic and normocephalic. Respiratory: No use of accessory muscles. Lungs are clear throughout. Normal airflow. Cardiovascular: Irregularly irregular without murmur appreciated. Abdomen: Bowel sounds are normal. No hepatosplenomegaly mass or tenderness appreciated. Obese and therefore difficult to palpate deeply. Extremities: No cyanosis clubbing or edema. Skin: Warm and non-diaphoretic with no new lesions noted. Internal Medicine: Result - Labs CBC & Chem 7: 11/30/18 05:10 11/30/18 05:10 - VTE Documentation of Mechanical Device: Intermittent pneumatic compression device Consult Discharge Plan - Plan Referrals: Zachary Galdamez CNP [Primary Care Provider] -
[2018-12-02] MEDS: *HR* Rivaroxaban 10 MG TABLET PO SCH (17:18)
[2018-12-03] MEDS: hydrALAZINE 10 MG TABLET PO SCH ×4 (05:42→23:51)
[2018-12-03 07:15] LABS: Basophils % 0.6 %; Eosinophils # 0.2 K/mcL (0.0-0.6); Eosinophils % 2.8 %; Hematocrit 28.2 % (37.5-50.1); Hemoglobin 9.2 g/dL (12.9-16.9); Immature Granulocytes % 0.4 % (0-4); Lymphocytes # 0.8 K/mcL (0.6-4.6); Mean Corpuscular HGB Conc 32.6 g/dL (31.6-35.5); Mean Corpuscular Hemoglobin 29.5 pg (28.0-33.3); Mean Corpuscular Volume 90.4 fL (83.0-100.0); Mean Platelet Volume 9.8 fL (9.4-12.4); Monocytes # 0.4 K/mcL (0.0-1.3); Monocytes % 5.4 %; Neutrophils # 5.4 K/mcL (1.6-8.9); Platelet Count 181 K/mcL (140-400); Red Blood Count 3.12 M/mcL (4.19-5.50); Red Cell Distribution Width 14.5 % (11.5-14.5); Segmented Neutrophils % 79.8 %
[2018-12-03 07:16] LABS: INR 2.1; Prothrombin Time 23.6 Seconds (9.4-12.1)
[2018-12-03 07:27] LABS: BUN/Creatinine Ratio 13 (6-26); Blood Urea Nitrogen 14 mg/dL (8-23); Calcium 8.9 mg/dL (8.6-10.3); Carbon Dioxide 24 mEq/L (23-29); Chloride 105 mEq/L (98-107); Glucose 125 mg/dL (70-105); Osmolality,Calculated 282 (280-300); Potassium 3.8 mEq/L (3.5-5.1); Sodium 135 mEq/L (136-145); eGFR For Non-African Americans > 60 (> 60)
[2018-12-03] MEDS: amLODIPine 5 MG TABLET PO SCH (07:41)
[2018-12-03] MEDS: *HR* Glimepiride 4 MG TABLET PO SCH (07:41)
[2018-12-03] MEDS: *HR* SitaGLIPtin 100 MG TABLET PO SCH (07:41)
[2018-12-03] MEDS: Multivit/Ca/Min/Fe/FA 1 TAB TABLET PO SCH (07:41)
[2018-12-03] MEDS: Cyanocobalamin (B-12) 1,000 MCG TABLET PO SCH (07:42)
[2018-12-03] MEDS: Magnesium Oxide 400 MG TABLET PO SCH (07:42)
[2018-12-03] MEDS: Insulin LISPRO 300 UNITS/3 ML VIAL SQ SCH ×4 (07:57→21:05)
[2018-12-03] MEDS: cloNIDine HCl 0.1 MG TABLET PO PRN (08:07)
--- NOTE | 2018-12-03 09:27 | Internal Med Progress Note ---
Addendum entered and electronically signed by Marques Tapia MD 12/03/18 10:09: I have personally performed a face to face evaluation on this patient. I have r eviewed and agree with the care plan. History and Exam by me shows: Nursing is concerned about the patient's increased requirement for oxygen, shortness of breath. However, patient minimizes this. Chest x-ray shows some possible signs of early heart failure. A BNP is 240 range, only. Vital signs are otherwise unremarkable. The patient feels that the nurses are overreacting. Of note, he is on Lasix twice a day at home and has not been receiving this here. Discussed care with other providers and/or nursing. Patient has no complaint of chest discomfort, dyspnea, orthopnea, palpitations, nausea or vomiting, constipation or diarrhea, other changes in bowel habits, difficulty with urination, rash or itching, or other new complaints, except as mentioned above. Review of systems is otherwise negative. Examination: (Except as mentioned above): General: In no apparent distress. Alert and oriented 3. Nondiaphoretic. Head: Atraumatic and normocephalic. Respiratory: No use of accessory muscles. Lungs are remarkable for rales at the left base. Normal airflow. Cardiovascular: Regular rate and rhythm without murmur appreciated. Abdomen: Bowel sounds are normal. No hepatosplenomegaly mass or tenderness appreciated. Obese and therefore difficult to palpate deeply. Extremities: No cyanosis clubbing or edema. Skin: Warm and non-diaphoretic with no new lesions noted. We will treat him with IV Lasix followed by oral. In addition, we will ask her to use an incentive spirometer. He will be followed clinically and therapy is helpless morning. Original Note: Date of Encounter: 12/03/18 Time of Encounter: 09:21 - Assessment and plan (1) CVA (cerebrovascular accident due to intracerebral hemorrhage) Current Visit: Yes Status: Acute Assessment and plan: No acute issues. Patient continues with left hemiparesis with muscle strength 4/5. Patient states that physical therapy has been progressing well. Patient's strength to his left side appears to have improved over the past week per therapy. Patient is progressing well per therapy Qualifiers: Cerebral hemorrhage location: unspecified cerebral location Laterality: right Qualified Code(s): I61.9 - Nontraumatic intracerebral hemorrhage, unspecified (2) HTN (hypertension) Current Visit: Yes Status: Chronic Assessment and plan: Patient continues to have slightly elevated systolic blood pressure between 150- 160. We will continue on current medications and evaluate patient's blood pressures for titration of medications Qualifiers: Hypertension type: essential hypertension Qualified Code(s): I10 - Essential (primary) hypertension (3) Diabetes 1.5, managed as type 2 Current Visit: Yes Status: Chronic Assessment and plan: No acute issues. Patient's glucose has been fairly well-controlled with most readings less than 200. Continue sliding scale coverage and evaluate patient's long-acting coverage for titration (4) Chronic renal disease, stage 3, moderately decreased glomerular filtration rate between 30-59 mL/min/1.73 square meter Current Visit: Yes Status: Chronic Assessment and plan: No acute issues. Patient's current creatinine of 1.01. We will continue to monitor serial labs and continue on current medications (5) A-fib Current Visit: Yes Status: Chronic Assessment and plan: Patient's current ventricular rate is less than 100 controlled. He denies any chest discomforts palpitations. We will continue on current medications. Qualifiers: Atrial fibrillation type: persistent Qualified Code(s): I48.1 - Persistent atrial fibrillation (6) CHF (congestive heart failure) Current Visit: Yes Status: Acute Assessment and plan: Patient with long history of CHF. Patient with episodes of dyspnea yesterday and last evening. Chest x-ray shows mild pulmonary edema. Patient weights shows slight increase. We will obtain a BNP and review patient's other labs. We will discuss with Dr. Tapia for current treatment. Patient states that he feels his breathing is improved since last evening. Patient endorses orthopnea, which she states is chronic from home. Qualifiers: Heart failure type: unspecified Heart failure chronicity: unspecified Qualified Code(s): I50.9 - Heart failure, unspecified - Time Spent With Patient less than 15 minutes - Subjective Interval history: Patient appears relaxed and currently denies any discomforts or shortness of breath. Patient had episode of dyspnea while lying flat during his transportation from follow-up visit yesterday. Patient reportedly had a decrease in saturation required supplemental oxygen to be placed to maintain him greater than 90%. Nursing reports patient had episode of shortness of breath last evening. Chest x-ray was obtained which shows mild pulmonary edema present. Patient states that he feels his strength on his left side has improved. Patient denies any acute neurological changes since his admission - Constitutional Vitals: Temp Pulse Resp BP Pulse Ox 98.0 F 15 15 164/79 91 12/03/18 08:00 12/03/18 08:00 12/03/18 08:00 12/03/18 08:00 12/03/18 08:00 General appearance: Present: cooperative, A&O X 3, pleasant, obese, answers questions appropriately. Absent: severe distress - Head Head exam: Present: atraumatic, normocephalic - Eye Eye exam: Present: PERRL, conjuntiva pink, sclera anicteric Pupils: Present: PERRL - Neck Neck exam general surgery: Present: supple, trachea midline. Absent: lymphadenopathy - Respiratory Respiratory exam: Present: decreased breath sounds, CTAB, rales. Absent: a ccessory muscle use, rhonchi, wheezes Additional comments: Lungs are clear to the patient has fine rales heard throughout lower half of a posterior gorman. Respiratory effort is relaxed while at rest. Patient endorses orthopnea. Productive cough - Cardiovascular Cardiovascular exam: Present: RRR, +S1, +S2. Absent: diastolic murmur, gallop, rubs, systolic murmur - GI/Abdominal GI/Abdominal exam: Present: normal bowel sounds, soft, no peritoneal signs. Absent: distended, tenderness - Extremities Exam Extremities exam: Present: pedal edema, warm, radial pulses palpable and symmetrical. Absent: calf tenderness, cyanotic Additional comments: Slight pedal edema - Neurological Exam Neurological exam: Present: CN II-XII intact, oriented X3. Absent: pronater drift, facial droop, speech deficit Additional comments: Patient continues with left hemiparesis with left extremities 4/5 muscle strength in right extremity is 5/5 muscle strength. Patient continues to have difficulty with fine motor with left hand - Skin Skin exam: Present: dry, intact Internal Medicine: Result - Labs CBC & Chem 7: 12/03/18 07:04 12/03/18 07:04 Labs: Short CBC 12/03/18 Range/Units 07:04 WBC 6.8 (4.3-11.1) K/mcL Hgb 9.2 L (12.9-16.9) g/dL Hct 28.2 L (37.5-50.1) % Plt Count 181 (140-400) K/mcL Neutrophils # 5.4 (1.6-8.9) K/mcL BMP 12/03/18 07:04 Sodium 135 L Potassium 3.8 Chloride 105 Carbon Dioxide 24 BUN 14 Creatinine 1.12 Glucose 125 H Calcium 8.9 - ABG Interpretation ABG results: PT/INR, D-dimer PT 23.6 Seconds (9.4-12.1) H 12/03/18 07:04 - Impressions Impressions Chest X-Ray 12/03/18 06:52 IMPRESSION: Congestive heart failure. D/ / 12/03/2018 07:43:23 Julio Cesar Alt[facility]ir[facility] / [facility] Interpreting Provider: Julio Cesar Altamirano MD - [facility] Documentation of Mechanical Device: Intermittent pneumatic compression device Consult Discharge Plan - Plan Referrals: Zachary Galdamez CNP [Primary Care Provider] -
[2018-12-03] MEDS ORDERED: Bumetanide 1 MG/4 ML VIAL IVP ONE (09:55)
[2018-12-03] MEDS ORDERED: Torsemide 20 MG TABLET PO SCH (10:00)
[2018-12-03] MEDS ORDERED: Furosemide 40 MG/4 ML VIAL IVP ONE (10:03)
[2018-12-03] MEDS: Furosemide 20 MG TABLET PO SCH (17:49)
[2018-12-03] MEDS: Acetaminophen 325 MG TABLET PO PRN ×2 (17:49→23:51)
[2018-12-03] MEDS: *HR* Rivaroxaban 10 MG TABLET PO SCH (17:50)
[2018-12-04] MEDS: hydrALAZINE 10 MG TABLET PO SCH ×3 (05:31→17:26)
[2018-12-04] MEDS: Acetaminophen 325 MG TABLET PO PRN ×2 (05:31→21:21)
[2018-12-04 06:01] LABS: BUN/Creatinine Ratio 12 (6-26); Blood Urea Nitrogen 15 mg/dL (8-23); Carbon Dioxide 26 mEq/L (23-29); Chloride 106 mEq/L (98-107); Glucose 87 mg/dL (70-105); Osmolality,Calculated 290 (280-300); Sodium 140 mEq/L (136-145); eGFR For Non-African Americans 59 (> 60)
[2018-12-04] MEDS: Insulin LISPRO 300 UNITS/3 ML VIAL SQ SCH ×4 (07:35→21:20)
[2018-12-04] MEDS: Furosemide 20 MG TABLET PO SCH ×2 (09:20→17:26)
[2018-12-04] MEDS: *HR* SitaGLIPtin 100 MG TABLET PO SCH (09:21)
[2018-12-04] MEDS: Multivit/Ca/Min/Fe/FA 1 TAB TABLET PO SCH (09:21)
[2018-12-04] MEDS: Magnesium Oxide 400 MG TABLET PO SCH (09:21)
[2018-12-04] MEDS: Cyanocobalamin (B-12) 1,000 MCG TABLET PO SCH (09:21)
[2018-12-04] MEDS: *HR* Glimepiride 4 MG TABLET PO SCH (09:21)
[2018-12-04] MEDS: amLODIPine 5 MG TABLET PO SCH (09:21)
--- NOTE | 2018-12-04 12:48 | Internal Med Progress Note ---
Addendum entered and electronically signed by Marques Tapia MD 12/04/18 12:59: I have personally performed a face to face evaluation on this patient. I have r eviewed and agree with the care plan. History and Exam by me shows: Upon careful questioning, patient is unable to say why he feels so much better today than yesterday. However, is feeling stronger and able to participate with therapy his breathing was not bad yesterday but he just felt tired. He denies cough, dyspnea, fever, etc. He is still having loose bowel movements but infrequent comparatively. Discussed care with other providers and/or nursing. Patient has no complaint of chest discomfort, dyspnea, orthopnea, palpitations, nausea or vomiting, constipation or diarrhea, other changes in bowel habits, difficulty with urination, rash or itching, or other new complaints, except as mentioned above. Review of systems is otherwise negative. Examination: (Except as mentioned above): General: In no apparent distress. Alert and oriented 3. Nondiaphoretic. Head: Atraumatic and normocephalic. Respiratory: No use of accessory muscles. Lungs are clear throughout. Normal airflow. Cardiovascular: Regular rate and rhythm without murmur appreciated. Abdomen: Bowel sounds are normal. No hepatosplenomegaly mass or tenderness appreciated. Obese and therefore difficult to palpate deeply. Patient is examined upright in chair and this also limits exam. Extremities: No cyanosis clubbing or edema. Skin: Warm and non-diaphoretic with no new lesions noted. Original Note: Date of Encounter: 12/04/18 Time of Encounter: 12:46 - Assessment and plan (1) CVA (cerebrovascular accident due to intracerebral hemorrhage) Current Visit: Yes Status: Acute Assessment and plan: No acute issues. Patient continues with left hemiparesis with muscle strength 4/5. Patient states that physical therapy has been progressing well. Patient's strength to his left side appears to have improved over the past week per therapy. Patient had follow-up CT scan of the brain which showed a continued resolving right thalamic bleed. Patient is progressing well per therapy Qualifiers: Cerebral hemorrhage location: unspecified cerebral location Laterality: right Qualified Code(s): I61.9 - Nontraumatic intracerebral hemorrhage, unspecified (2) HTN (hypertension) Current Visit: Yes Status: Chronic Assessment and plan: Patient continues to have slightly elevated systolic blood pressure between 150- 160. We will continue on current medications and evaluate patient's blood pressures for titration of medications Qualifiers: Hypertension type: essential hypertension Qualified Code(s): I10 - Essential (primary) hypertension (3) Diabetes 1.5, managed as type 2 Current Visit: Yes Status: Chronic Assessment and plan: No acute issues. Patient's glucose has been fairly well-controlled with most readings less than 200. Continue sliding scale coverage and evaluate patient's long-acting coverage for titration (4) Chronic renal disease, stage 3, moderately decreased glomerular filtration rate between 30-59 mL/min/1.73 square meter Current Visit: Yes Status: Chronic Assessment and plan: No acute issues. Patient's current creatinine of 1.21. We will continue to monitor serial labs and continue on current medications (5) A-fib Current Visit: Yes Status: Chronic Assessment and plan: Patient's current ventricular rate is less than 100 controlled. He denies any chest discomforts palpitations. We will continue on current medications. Qualifiers: Atrial fibrillation type: persistent Qualified Code(s): I48.1 - Persistent atrial fibrillation (6) CHF (congestive heart failure) Current Visit: Yes Status: Acute Qualifiers: Heart failure type: unspecified Heart failure chronicity: unspecified Qualified Code(s): I50.9 - Heart failure, unspecified - Subjective Interval history: Patient appears relaxed and currently denies any discomforts or shortness of breath. Patient has had several episodes of shortness of breath over the past few days but today states that his breathing has improved. He denies any productive cough. Patient states that he feels his strength on his left side has improved. Patient denies any acute neurological changes since his admission - Constitutional Vitals: Temp Pulse Resp BP Pulse Ox 98.4 F 79 16 147/63 98 12/04/18 07:21 12/04/18 07:21 12/04/18 07:21 12/04/18 07:21 12/04/18 07:21 General appearance: Present: cooperative, A&O X 3, pleasant, obese, answers questions appropriately. Absent: severe distress - Head Head exam: Present: atraumatic, normocephalic - Eye Eye exam: Present: PERRL, conjuntiva pink, sclera anicteric Pupils: Present: PERRL - Neck Neck exam general surgery: Present: supple, trachea midline. Absent: ly mphadenopathy - Respiratory Respiratory exam: Present: decreased breath sounds, CTAB, rales. Absent: accessory muscle use, rhonchi, wheezes Additional comments: Patient's lungs clear throughout upper gorman with fine rales her to posterior basilar gorman. Respiratory effort appears relaxed - Cardiovascular Cardiovascular exam: Present: RRR, +S1, +S2. Absent: diastolic murmur, gallop, rubs, systolic murmur - GI/Abdominal GI/Abdominal exam: Present: normal bowel sounds, soft, no peritoneal signs. Absent: distended, tenderness - Extremities Exam Extremities exam: Present: warm, radial pulses palpable and symmetrical. Absent: calf tenderness, cyanotic, pedal edema - Neurological Exam Neurological exam: Present: CN II-XII intact, oriented X3. Absent: pronater drift, facial droop, speech deficit Additional comments: Patient continues with left hemiparesis with his muscle strength on left extremities have 4/5 and his right extremities and 5/5. Patient continues to have difficulty with fine motor movement of left hand. - Skin Skin exam: Present: dry, intact Internal Medicine: Result - Labs CBC & Chem 7: 12/03/18 07:04 12/04/18 05:17 Labs: BMP 12/04/18 05:17 Sodium 140 Potassium 4.0 Chloride 106 Carbon Dioxide 26 BUN 15 Creatinine 1.21 Glucose 87 Calcium 9.0 - ABG Interpretation ABG results: PT/INR, D-dimer PT 23.6 Seconds (9.4-12.1) H 12/03/18 07:04 - Impressions Impressions Head CT 12/04/18 00:01 IMPRESSION: Interval decrease in right thalamic hemorrhagic infarct. No midline shift is noted. Senescent changes including chronic microvascular change. D/ / 12/04/2018 09:29:10 Ebony Novoa MD / [facility] Interpreting Provider: Ebony Novoa MD - [facility] Documentation of Mechanical Device: Intermittent pneumatic compression device Consult Discharge Plan - Plan Referrals: Zachary Galdamez CNP [Primary Care Provider] -
[2018-12-04] MEDS: *HR* Rivaroxaban 10 MG TABLET PO SCH (17:26)
[2018-12-05] MEDS: hydrALAZINE 10 MG TABLET PO SCH ×5 (01:22→23:39)
[2018-12-05] MEDS: Insulin LISPRO 300 UNITS/3 ML VIAL SQ SCH ×4 (07:40→20:44)
[2018-12-05] MEDS: Multivit/Ca/Min/Fe/FA 1 TAB TABLET PO SCH (08:20)
[2018-12-05] MEDS: Cyanocobalamin (B-12) 1,000 MCG TABLET PO SCH (08:21)
[2018-12-05] MEDS: Magnesium Oxide 400 MG TABLET PO SCH (08:21)
[2018-12-05] MEDS: *HR* Glimepiride 4 MG TABLET PO SCH (08:21)
[2018-12-05] MEDS: Furosemide 20 MG TABLET PO SCH ×2 (08:21→17:05)
[2018-12-05] MEDS: *HR* SitaGLIPtin 100 MG TABLET PO SCH (08:21)
[2018-12-05] MEDS: amLODIPine 5 MG TABLET PO SCH (08:21)
--- NOTE | 2018-12-05 11:45 | Internal Med Progress Note ---
Date of Encounter: 12/05/18 Time of Encounter: 11:45 - Assessment and plan (1) CVA (cerebrovascular accident due to intracerebral hemorrhage) Current Visit: Yes Status: Acute Assessment and plan: He continues to improve, slowly but surely. Therapies will continue for another couple of days. Qualifiers: Cerebral hemorrhage location: unspecified cerebral location Laterality: right Qualified Code(s): I61.9 - Nontraumatic intracerebral hemorrhage, unspecified (2) HTN (hypertension) Current Visit: Yes Status: Chronic Assessment and plan: Controlled. Qualifiers: Hypertension type: essential hypertension Qualified Code(s): I10 - Essential (primary) hypertension (3) Diabetes 1.5, managed as type 2 Current Visit: Yes Status: Chronic Assessment and plan: Marginal control. (4) A-fib Current Visit: Yes Status: Chronic Assessment and plan: Clinically stable on current regimen. He is back on his Xarelto. Qualifiers: Atrial fibrillation type: persistent Qualified Code(s): I48.1 - Persistent atrial fibrillation (5) Chronic renal disease, stage 3, moderately decreased glomerular filtration rate between 30-59 mL/min/1.73 square meter Current Visit: Yes Status: Chronic Assessment and plan: Clinically stable. (6) Hypomagnesemia Current Visit: Yes Status: Acute Assessment and plan: Stable. - Subjective Interval history: Is without complaint. He feels like he is stronger and breathing well. He s till on 1.5 L of oxygen. He denies dyspnea, however. He feels like he has loose bowel movements but only one per day, now. He denies abdominal pain or fevers, etc. She notes shortness of breath on his transport to appointment. However patient minimizes and states this is no worse than usual. Patient has no other complaints. Patient has no complaint of chest discomfort, dyspnea, orthopnea, palpitations, nausea or vomiting, constipation or diarrhea, other changes in bowel habits, difficulty with urination, rash or itching, or other new complaints, except as mentioned above. Review of systems is otherwise negative. - Constitutional Vitals: Temp Pulse Resp BP Pulse Ox 98.5 F 78 14 129/71 92 12/05/18 07:28 12/05/18 07:28 12/05/18 07:28 12/05/18 07:28 12/05/18 08:19 Exam: Examination: (Except as mentioned above): General: In no apparent distress. Alert and oriented 3. Nondiaphoretic. Head: Atraumatic and normocephalic. Respiratory: No use of accessory muscles. Lungs are clear throughout. Normal airflow. Cardiovascular: Regular rate and rhythm without murmur appreciated. Abdomen: Bowel sounds are normal. No hepatosplenomegaly mass or tenderness appreciated. Obese and therefore difficult to palpate deeply. Patient is examined upright in chair and this also limits exam. Extremities: No cyanosis clubbing or edema. Skin: Warm and non-diaphoretic with no new lesions noted. Internal Medicine: Result - Labs CBC & Chem 7: 12/03/18 07:04 12/04/18 05:17 - ABG Interpretation ABG results: PT/INR, D-dimer PT 23.6 Seconds (9.4-12.1) H 12/03/18 07:04 - Impressions Impressions Head CT 12/04/18 00:01 IMPRESSION: Interval decrease in right thalamic hematoma. No midline shift is noted. Senescent changes including chronic microvascular change. D/ / 12/04/2018 09:29:10 Ebony Novoa MD / [facility] Interpreting Provider: Ebony Novoa MD - [facility] Documentation of Mechanical Device: Intermittent pneumatic compression device Consult Discharge Plan - Plan Referrals: Zachary Galdamez CNP [Primary Care Provider] -
[2018-12-05] MEDS: *HR* Rivaroxaban 10 MG TABLET PO SCH (17:05)
[2018-12-06] MEDS: hydrALAZINE 10 MG TABLET PO SCH ×4 (06:09→23:56)
[2018-12-06] MEDS: Insulin LISPRO 300 UNITS/3 ML VIAL SQ SCH ×4 (07:47→20:50)
[2018-12-06] MEDS: Magnesium Oxide 400 MG TABLET PO SCH (09:12)
[2018-12-06] MEDS: *HR* SitaGLIPtin 100 MG TABLET PO SCH (09:12)
[2018-12-06] MEDS: *HR* Glimepiride 4 MG TABLET PO SCH (09:12)
[2018-12-06] MEDS: Multivit/Ca/Min/Fe/FA 1 TAB TABLET PO SCH (09:12)
[2018-12-06] MEDS: Cyanocobalamin (B-12) 1,000 MCG TABLET PO SCH (09:12)
[2018-12-06] MEDS: Furosemide 20 MG TABLET PO SCH ×2 (09:13→16:28)
[2018-12-06] MEDS: amLODIPine 5 MG TABLET PO SCH (09:13)
--- NOTE | 2018-12-06 14:11 | Internal Med Progress Note ---
Addendum entered and electronically signed by Marques Tapia MD 12/06/18 14:55: I have personally performed a face to face evaluation on this patient. I have r eviewed and agree with the care plan. History and Exam by me shows: The patient is doing well. He has no significant changes. He is feeling better than a few days ago and he is pleased that he is able to keep off the oxygen, during the day. His bowels are moving. He is otherwise without complaint. Discussed care with other providers and/or nursing. Patient has no complaint of chest discomfort, dyspnea, orthopnea, palpitations, nausea or vomiting, constipation or diarrhea, other changes in bowel habits, difficulty with urination, rash or itching, or other new complaints, except as mentioned above. Review of systems is otherwise negative. Examination: (Except as mentioned above): General: In no apparent distress. Alert and oriented 3. Nondiaphoretic. Head: Atraumatic and normocephalic. Respiratory: No use of accessory muscles. Lungs are clear throughout. Normal airflow. Cardiovascular: Irregularly irregular without murmur appreciated. Abdomen: Bowel sounds are normal. No hepatosplenomegaly mass or tenderness appreciated. Obese and therefore difficult to palpate deeply. Patient is examined upright in chair and this also limits exam. Extremities: No cyanosis clubbing or edema. Skin: Warm and non-diaphoretic with no new lesions noted. Patient is pleased with his progress and is continuing to gain strength in his left extremities. Original Note: Date of Encounter: 12/06/18 Time of Encounter: 14:04 - Assessment and plan (1) CVA (cerebrovascular accident due to intracerebral hemorrhage) Current Visit: Yes Status: Acute Assessment and plan: Continue PT, OT and ST. Will follow progress. No new neurological deficits. Follow up with neurology as scheduled. Qualifiers: Cerebral hemorrhage location: unspecified cerebral location Laterality: right Qualified Code(s): I61.9 - Nontraumatic intracerebral hemorrhage, unspecified (2) HTN (hypertension) Current Visit: Yes Status: Chronic Assessment and plan: Controlled with current medication. Continue clonidine as needed. Will monitor blood pressure. Qualifiers: Hypertension type: essential hypertension Qualified Code(s): I10 - Essential (primary) hypertension (3) Diabetes 1.5, managed as type 2 Current Visit: Yes Status: Chronic Assessment and plan: Controlled with sliding scale insulin. Continue to monitor blood sugars. Will adjust medications as necessary. (4) Chronic renal disease, stage 3, moderately decreased glomerular filtration rate between 30-59 mL/min/1.73 square meter Current Visit: Yes Status: Chronic Assessment and plan: Will monitor labs. Avoid nephrotoxic agents. (5) A-fib Current Visit: Yes Status: Chronic Assessment and plan: Rate and rhythm stable. continue xarelto. Qualifiers: Atrial fibrillation type: persistent Qualified Code(s): I48.1 - Persistent atrial fibrillation (6) Hypokalemia Current Visit: Yes Status: Acute - Time Spent With Patient less than 15 minutes - Subjective Interval history: sitting in h, at side. weaning O2, maintaining sats > 92% on room air. Denies any new neurological deficits. Denies fever, chills, nausea vomiting. Maintaining appetite and hydration. - Constitutional Vitals: Temp Pulse Resp BP Pulse Ox 98.4 F 86 16 172/70 93 12/06/18 07:24 12/06/18 12:23 12/06/18 07:24 12/06/18 12:23 12/06/18 07:24 General appearance: Present: cooperative, A&O X 3, pleasant, obese, answers questions appropriately. Absent: severe distress - Head Head exam: Present: atraumatic, normocephalic - Eye Eye exam: Present: PERRL, conjuntiva pink, sclera anicteric Pupils: Present: PERRL - Neck Neck exam general surgery: Present: supple, trachea midline. Absent: lymphadenopathy - Respiratory Respiratory exam: Present: CTAB. Absent: accessory muscle use, rales, rhonchi, wheezes - Cardiovascular Cardiovascular exam: Present: irregular rhythm, +S1, +S2. Absent: diastolic murmur, gallop, rubs, systolic murmur - GI/Abdominal GI/Abdominal exam: Present: normal bowel sounds, soft, no peritoneal signs. Absent: distended, tenderness - Extremities Exam Extremities exam: Present: pedal edema, warm, radial pulses palpable and symmetrical. Absent: calf tenderness, cyanotic - Neurological Exam Neurological exam: Present: CN II-XII intact, oriented X3, no focal deficits. Absent: pronater drift, facial droop, speech deficit - Skin Skin exam: Present: dry, intact Internal Medicine: Result - Labs CBC & Chem 7: 12/03/18 07:04 12/04/18 05:17 - ABG Interpretation ABG results: PT/INR, D-dimer PT 23.6 Seconds (9.4-12.1) H 12/03/18 07:04 - VTE Documentation of Mechanical Device: Intermittent pneumatic compression device Consult Discharge Plan - Plan Referrals: Zachary Galdamez CNP [Primary Care Provider] -
[2018-12-06] MEDS: cloNIDine HCl 0.1 MG TABLET PO PRN (16:28)
[2018-12-06] MEDS: *HR* Rivaroxaban 10 MG TABLET PO SCH (16:28)
[2018-12-06] MEDS: Acetaminophen 325 MG TABLET PO PRN (22:12)
[2018-12-07] MEDS: hydrALAZINE 10 MG TABLET PO SCH ×3 (05:49→16:40)
[2018-12-07] MEDS: Insulin LISPRO 300 UNITS/3 ML VIAL SQ SCH ×4 (07:30→20:35)
[2018-12-07] MEDS: *HR* SitaGLIPtin 100 MG TABLET PO SCH (07:54)
[2018-12-07] MEDS: Multivit/Ca/Min/Fe/FA 1 TAB TABLET PO SCH (07:54)
[2018-12-07] MEDS: amLODIPine 5 MG TABLET PO SCH (07:54)
[2018-12-07] MEDS: Cyanocobalamin (B-12) 1,000 MCG TABLET PO SCH (07:54)
[2018-12-07] MEDS: *HR* Glimepiride 4 MG TABLET PO SCH (07:54)
[2018-12-07] MEDS: Magnesium Oxide 400 MG TABLET PO SCH (07:54)
[2018-12-07] MEDS: Furosemide 20 MG TABLET PO SCH ×2 (07:54→16:40)
--- NOTE | 2018-12-07 10:05 | Internal Med Progress Note ---
Addendum entered and electronically signed by Marques Tapia MD 12/07/18 11:32: I have personally performed a face to face evaluation on this patient. I have r eviewed and agree with the care plan. History and Exam by me shows: Patient is generally pleased as he has no complaints. Patient is to use oxygen around the clock. However, patient and his have been noncompliant with this. 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 They agree to try. Discussed care with other providers and/or nursing. Patient has no complaint of chest discomfort, dyspnea, orthopnea, palpitations, nausea or vomiting, constipation or diarrhea, other changes in bowel habits, difficulty with urination, rash or itching, or other new complaints, except as mentioned above. Review of systems is otherwise negative. Examination: (Except as mentioned above): General: In no apparent distress. Alert and oriented 3. Nondiaphoretic. Head: Atraumatic and normocephalic. Respiratory: No use of accessory muscles. Lungs are clear throughout. Normal airflow. Cardiovascular: Regular rate and rhythm without murmur appreciated. Abdomen: Bowel sounds are normal. No hepatosplenomegaly mass or tenderness appreciated. Obese and therefore difficult to palpate deeply. Patient is examined upright in chair and this also limits exam. Extremities: No cyanosis clubbing or edema. Skin: Warm and non-diaphoretic with no new lesions noted. Original Note: Date of Encounter: 12/07/18 Time of Encounter: 10:03 - Assessment and plan (1) CVA (cerebrovascular accident due to intracerebral hemorrhage) Current Visit: Yes Status: Acute Assessment and plan: Continue PT, OT and ST. Will follow progress. No new neurological deficits. Follow up with neurology as scheduled. Qualifiers: Cerebral hemorrhage location: unspecified cerebral location Laterality: right Qualified Code(s): I61.9 - Nontraumatic intracerebral hemorrhage, unspecified (2) HTN (hypertension) Current Visit: Yes Status: Chronic Assessment and plan: Controlled with current medication. Continue clonidine as needed. Will monitor blood pressure. Qualifiers: Hypertension type: essential hypertension Qualified Code(s): I10 - Essential (primary) hypertension (3) Diabetes 1.5, managed as type 2 Current Visit: Yes Status: Chronic Assessment and plan: Controlled with sliding scale insulin. Continue to monitor blood sugars. Will adjust medications as necessary. (4) Chronic renal disease, stage 3, moderately decreased glomerular filtration rate between 30-59 mL/min/1.73 square meter Current Visit: Yes Status: Chronic Assessment and plan: Will monitor labs. Avoid nephrotoxic agents. (5) A-fib Current Visit: Yes Status: Chronic Assessment and plan: Rate and rhythm stable. continue xarelto. Qualifiers: Atrial fibrillation type: persistent Qualified Code(s): I48.1 - Persistent atrial fibrillation - Time Spent With Patient 25 - 35 minutes - Subjective Interval history: Participating well with therapy. Ambulated 18 steps with assistance with front wheeled walker. Oxygen saturation dropped to 87% on room air but recovered to 94% with a couple minutes rest. Denies any new neurological deficits. Denies fever, chills, nausea vomiting. Maintaining appetite and hydration. - Constitutional Vitals: Temp Pulse Resp BP Pulse Ox 98.4 F 61 16 126/78 95 12/07/18 07:04 12/07/18 07:04 12/07/18 07:04 12/07/18 07:04 12/07/18 08:03 General appearance: Present: cooperative, A&O X 3, pleasant, obese, answers questions appropriately. Absent: severe distress - Head Head exam: Present: atraumatic, normocephalic - Eye Eye exam: Present: PERRL, conjuntiva pink, sclera anicteric Pupils: Present: PERRL - Neck Neck exam general surgery: Present: supple, trachea midline. Absent: lymphadenopathy - Respiratory Respiratory exam: Present: CTAB. Absent: accessory muscle use, rales, rhonchi, wheezes - Cardiovascular Cardiovascular exam: Present: irregular rhythm, RRR, +S1, +S2. Absent: diastolic murmur, gallop, rubs, systolic murmur - GI/Abdominal GI/Abdominal exam: Present: normal bowel sounds, soft, no peritoneal signs. Absent: distended, tenderness - Extremities Exam Extremities exam: Present: pedal edema, warm, radial pulses palpable and symmetrical. Absent: calf tenderness, cyanotic Additional comments: Left-sided weakness - Neurological Exam Neurological exam: Present: CN II-XII intact, oriented X3, no focal deficits. Absent: pronater drift, facial droop, speech deficit - Skin Skin exam: Present: dry, intact Internal Medicine: Result - Labs CBC & Chem 7: 12/03/18 07:04 12/04/18 05:17 - ABG Interpretation ABG results: PT/INR, D-dimer PT 23.6 Seconds (9.4-12.1) H 12/03/18 07:04 - VTE Documentation of Mechanical Device: Intermittent pneumatic compression device Consult Discharge Plan - Plan Referrals: Zachary Galdamez CNP [Primary Care Provider] -
[2018-12-07 15:58] LABS: Basophils # 0.1 K/mcL (0.0-0.2); Basophils % 0.9 %; Eosinophils # 0.2 K/mcL (0.0-0.6); Eosinophils % 2.9 %; Hematocrit 28.8 % (37.5-50.1); Hemoglobin 9.4 g/dL (12.9-16.9); Immature Granulocytes % 0.5 % (0-4); Lymphocytes # 1.1 K/mcL (0.6-4.6); Lymphocytes % 19.7 %; Mean Corpuscular HGB Conc 32.6 g/dL (31.6-35.5); Mean Corpuscular Hemoglobin 29.2 pg (28.0-33.3); Mean Corpuscular Volume 89.4 fL (83.0-100.0); Mean Platelet Volume 9.8 fL (9.4-12.4); Monocytes # 0.3 K/mcL (0.0-1.3); Monocytes % 5.4 %; Platelet Count 206 K/mcL (140-400); Red Blood Count 3.22 M/mcL (4.19-5.50); Segmented Neutrophils % 70.6 %
[2018-12-07] MEDS: *HR* Rivaroxaban 10 MG TABLET PO SCH (16:40)
[2018-12-07 17:08] LABS: Alanine Aminotransferase 11 Units/L (7-52); Albumin 3.8 g/dL (3.5-5.7); Albumin/Globulin Ratio 1.3 (1.1-2.2); Alkaline Phosphatase 85 Units/L (34-104); Aspartate Amino Transferase 15 Units/L (13-39); BUN/Creatinine Ratio 18 (6-26); Bilirubin,Total 0.7 mg/dL (0.3-1.0); Blood Urea Nitrogen 25 mg/dL (8-23); Calcium 9.2 mg/dL (8.6-10.3); Carbon Dioxide 24 mEq/L (23-29); Chloride 106 mEq/L (98-107); Globulin 2.9 g/dL (2.4-3.5); Glucose 190 mg/dL (70-105); Osmolality,Calculated 295 (280-300); Sodium 138 mEq/L (136-145); Total Protein 6.7 g/dL (6.4-8.9); eGFR For Non-African Americans 51 (> 60)
[2018-12-07] MEDS: Acetaminophen 325 MG TABLET PO PRN (20:26)
[2018-12-08] MEDS: hydrALAZINE 10 MG TABLET PO SCH ×5 (00:24→23:47)
[2018-12-08] MEDS: Insulin LISPRO 300 UNITS/3 ML VIAL SQ SCH ×4 (08:08→20:51)
[2018-12-08] MEDS: amLODIPine 5 MG TABLET PO SCH (08:17)
[2018-12-08] MEDS: Magnesium Oxide 400 MG TABLET PO SCH (08:17)
[2018-12-08] MEDS: *HR* SitaGLIPtin 100 MG TABLET PO SCH (08:17)
[2018-12-08] MEDS: Multivit/Ca/Min/Fe/FA 1 TAB TABLET PO SCH (08:17)
[2018-12-08] MEDS: Furosemide 20 MG TABLET PO SCH ×2 (08:17→17:17)
[2018-12-08] MEDS: *HR* Glimepiride 4 MG TABLET PO SCH (08:18)
[2018-12-08] MEDS: Cyanocobalamin (B-12) 1,000 MCG TABLET PO SCH (08:18)
--- NOTE | 2018-12-08 10:31 | Internal Med Progress Note ---
Addendum entered and electronically signed by Marques Tapia MD 12/08/18 11:20: I have personally performed a face to face evaluation on this patient. I have r eviewed and agree with the care plan. History and Exam by me shows: Patient notes occasional right-sided leg weakness but he is able to walk 32 feet with a walker. I encouraged him as this sounds like adjustment weakness and not an acute neurologic problem. No neurologic deficits were found. Discussed care with other providers and/or nursing. Patient has no complaint of chest discomfort, dyspnea, orthopnea, palpitations, nausea or vomiting, constipation or diarrhea, other changes in bowel habits, difficulty with urination, rash or itching, or other new complaints, except as mentioned above. Review of systems is otherwise negative. Examination: (Except as mentioned above): General: In no apparent distress. Alert and oriented 3. Nondiaphoretic. Head: Atraumatic and normocephalic. Respiratory: No use of accessory muscles. Lungs are clear throughout. Normal airflow. Cardiovascular: Irregularly irregular consistent with atrial fibrillation without murmur appreciated. Abdomen: Bowel sounds are normal. No hepatosplenomegaly mass or tenderness appreciated. Obese and therefore difficult to palpate deeply. Patient is examined upright in chair and this also limits exam. Extremities: No cyanosis clubbing or edema. Skin: Warm and non-diaphoretic with no new lesions noted. I discussed his slightly elevated creatinine. I informed him and his that he needs to have a balance between diuresis with Lasix and overdiuresis. For this reason, we will watch BMP intermittently. Original Note: Date of Encounter: 12/08/18 Time of Encounter: 10:29 - Assessment and plan (1) CVA (cerebrovascular accident due to intracerebral hemorrhage) Current Visit: Yes Status: Acute Assessment and plan: Continue PT, OT and ST. Will follow progress. No new neurological deficits. Follow up with neurology as scheduled. Qualifiers: Cerebral hemorrhage location: unspecified cerebral location Laterality: right Qualified Code(s): I61.9 - Nontraumatic intracerebral hemorrhage, unspecified (2) HTN (hypertension) Current Visit: Yes Status: Chronic Assessment and plan: Controlled with current medication. Continue clonidine as needed. Will monitor blood pressure. Qualifiers: Hypertension type: essential hypertension Qualified Code(s): I10 - Essential (primary) hypertension (3) Diabetes 1.5, managed as type 2 Current Visit: Yes Status: Chronic Assessment and plan: Controlled with sliding scale insulin. Continue to monitor blood sugars. Will adjust medications as necessary. (4) Chronic renal disease, stage 3, moderately decreased glomerular filtration rate between 30-59 mL/min/1.73 square meter Current Visit: Yes Status: Chronic Assessment and plan: Will monitor labs. Avoid nephrotoxic agents. (5) A-fib Current Visit: Yes Status: Chronic Assessment and plan: Rate and rhythm stable. continue xarelto. Qualifiers: Atrial fibrillation type: persistent Qualified Code(s): I48.1 - Persistent atrial fibrillation - Time Spent With Patient less than 15 minutes - Subjective Interval history: Participating well with therapy. Denies any new neurological deficits. Denies fever, chills, nausea vomiting, SOB or chest pain. maintaining O2 sats with O2 per NC at 1 liter. Maintaining appetite and hydration. - Constitutional Vitals: Temp Pulse Resp BP Pulse Ox 98.4 F 58 15 157/67 94 12/08/18 08:20 12/08/18 08:20 12/08/18 08:20 12/08/18 08:20 12/08/18 08:20 General appearance: Present: cooperative, A&O X 3, pleasant, obese, answers questions appropriately. Absent: severe distress Exam: [facility] with hearing aides. - Head Head exam: Present: atraumatic, normocephalic - Eye Eye exam: Present: PERRL, conjuntiva pink, sclera anicteric Pupils: Present: PERRL - Neck Neck exam general surgery: Present: supple, trachea midline. Absent: lymphadenopathy - Respiratory Respiratory exam: Present: CTAB. Absent: accessory muscle use, rales, rhonchi, wheezes - Cardiovascular Cardiovascular exam: Present: RRR, +S1, +S2. Absent: diastolic murmur, gallop, rubs, systolic murmur - GI/Abdominal GI/Abdominal exam: Present: normal bowel sounds, soft, no peritoneal signs. Absent: distended, tenderness - Extremities Exam Extremities exam: Present: warm, radial pulses palpable and symmetrical. Absent: calf tenderness, cyanotic, pedal edema Additional comments: left sided weakness 4/5 - Neurological Exam Neurological exam: Present: CN II-XII intact, oriented X3, no focal deficits. Absent: pronater drift, facial droop, speech deficit - Skin Skin exam: Present: dry, intact Internal Medicine: Result - Labs CBC & Chem 7: 12/07/18 15:52 12/07/18 15:52 Labs: Short CBC 12/07/18 Range/Units 15:52 WBC 5.6 (4.3-11.1) K/mcL Hgb 9.4 L (12.9-16.9) g/dL Hct 28.8 L (37.5-50.1) % Plt Count 206 (140-400) K/mcL Neutrophils # 4.0 (1.6-8.9) K/mcL BMP 12/07/18 15:52 Sodium 138 Potassium 4.0 Chloride 106 Carbon Dioxide 24 BUN 25 H Creatinine 1.38 H Glucose 190 H Calcium 9.2 Liver Function 12/07/18 Range/Units 15:52 Total Bilirubin 0.7 (0.3-1.0) mg/dL AST 15 (13-39) Units/L ALT 11 (7-52) Units/L Alkaline Phosphatase 85 (34-104) Units/L Albumin 3.8 (3.5-5.7) g/dL - ABG Interpretation ABG results: PT/INR, D-dimer PT 23.6 Seconds (9.4-12.1) H 12/03/18 07:04 - VTE Documentation of Mechanical Device: Intermittent pneumatic compression device Consult Discharge Plan - Plan Referrals: Zachary Galdamez, MIKKI [Primary Care Provider] -
[2018-12-08 14:25] LABS: BUN/Creatinine Ratio 16 (6-26); Blood Urea Nitrogen 21 mg/dL (8-23); Calcium 9.2 mg/dL (8.6-10.3); Carbon Dioxide 24 mEq/L (23-29); Chloride 103 mEq/L (98-107); Glucose 215 mg/dL (70-105); Osmolality,Calculated 287 (280-300); Potassium 3.9 mEq/L (3.5-5.1); Sodium 134 mEq/L (136-145); eGFR For Non-African Americans 54 (> 60)
[2018-12-08] MEDS: *HR* Rivaroxaban 10 MG TABLET PO SCH (17:17)
[2018-12-08] MEDS: Acetaminophen 325 MG TABLET PO PRN (22:18)
[2018-12-09] MEDS: hydrALAZINE 10 MG TABLET PO SCH ×3 (05:13→17:28)
[2018-12-09] MEDS: Acetaminophen 325 MG TABLET PO PRN ×2 (05:13→21:58)
[2018-12-09] MEDS: Insulin LISPRO 300 UNITS/3 ML VIAL SQ SCH ×4 (08:10→20:54)
[2018-12-09] MEDS: *HR* SitaGLIPtin 100 MG TABLET PO SCH (08:21)
[2018-12-09] MEDS: Multivit/Ca/Min/Fe/FA 1 TAB TABLET PO SCH (08:22)
[2018-12-09] MEDS: Magnesium Oxide 400 MG TABLET PO SCH (08:22)
[2018-12-09] MEDS: amLODIPine 5 MG TABLET PO SCH (08:22)
[2018-12-09] MEDS: *HR* Glimepiride 4 MG TABLET PO SCH (08:22)
[2018-12-09] MEDS: Cyanocobalamin (B-12) 1,000 MCG TABLET PO SCH (08:23)
[2018-12-09] MEDS: Furosemide 20 MG TABLET PO SCH ×2 (08:28→16:45)
--- NOTE | 2018-12-09 11:06 | Internal Med Progress Note ---
Addendum entered and electronically signed by Marques Tapia MD 12/09/18 11:28: I have personally performed a face to face evaluation on this patient. I have r eviewed and agree with the care plan. History and Exam by me shows: Patient is doing well without complaint. His bowels are moving but not excessively. He is pleased with his progress in therapy and asks about when he can go home. He was able to walk 50 feet, which today. Discussed care with other providers and/or nursing. Patient has no complaint of chest discomfort, dyspnea, orthopnea, palpitations, nausea or vomiting, constipation or diarrhea, other changes in bowel habits, difficulty with urination, rash or itching, or other new complaints, except as mentioned above. Review of systems is otherwise negative. Examination: (Except as mentioned above): General: In no apparent distress. Alert and oriented 3. Nondiaphoretic. Head: Atraumatic and normocephalic. Respiratory: No use of accessory muscles. Lungs are clear throughout. Normal airflow. Cardiovascular: Regular rate and rhythm without murmur appreciated. Abdomen: Bowel sounds are normal. No hepatosplenomegaly mass or tenderness appreciated. Obese and therefore difficult to palpate deeply. Patient is examin ed upright in chair and this also limits exam. Extremities: No cyanosis clubbing or edema. Skin: Warm and non-diaphoretic with no new lesions noted. I told patient and that we would find out from therapy about when he can go home if they feel he is making enough progress. Original Note: Date of Encounter: 12/09/18 Time of Encounter: 11:04 - Assessment and plan (1) CVA (cerebrovascular accident due to intracerebral hemorrhage) Current Visit: Yes Status: Acute Assessment and plan: No acute issues. Patient continues with left hemiparesis with muscle strength 4/5. Patient states that physical therapy has been progressing well and today therapy reports patient has ambulated greater than 50 feet. Patient continue with physical therapy and current plan of care. Qualifiers: Cerebral hemorrhage location: unspecified cerebral location Laterality: right Qualified Code(s): I61.9 - Nontraumatic intracerebral hemorrhage, unspecified (2) HTN (hypertension) Current Visit: Yes Status: Chronic Assessment and plan: Patient continues to have slightly elevated systolic blood pressure between 160- 170. We will continue on current medications and evaluate patient's blood pressures for titration of medications. Will start patient on a 0.1 Catapres patch Qualifiers: Hypertension type: essential hypertension Qualified Code(s): I10 - Essential (primary) hypertension (3) Diabetes 1.5, managed as type 2 Current Visit: Yes Status: Chronic Assessment and plan: No acute issues. Patient's glucose has been fairly well-controlled with most readings less than 200. We will increase current sliding scale coverage to medium dosing and continue with coverage per sliding scale. Patient to continue with oral diabetic medications. (4) Chronic renal disease, stage 3, moderately decreased glomerular filtration rate between 30-59 mL/min/1.73 square meter Current Visit: Yes Status: Chronic (5) A-fib Current Visit: Yes Status: Chronic Assessment and plan: Patient's current ventricular rate is less than 100 controlled. He denies any chest discomforts palpitations. We will continue on current medications. Qualifiers: Atrial fibrillation type: persistent Qualified Code(s): I48.1 - Persistent atrial fibrillation (6) CHF (congestive heart failure) Current Visit: Yes Status: Acute Assessment and plan: Patient with long history of CHF. No current issues. Patient denies any dyspnea at this time. Lungs are clear throughout [place] but diminished bases. Minimal edema. Patient is continue on current medications Qualifiers: Heart failure type: unspecified Heart failure chronicity: unspecified Qualified Code(s): I50.9 - Heart failure, unspecified - Time Spent With Patient less than 15 minutes - Subjective Interval history: Patient appears relaxed and currently denies any discomforts or shortness of breath. Patient has had several episodes of shortness of breath over the past few days but today states that his breathing has improved. He denies any productive cough. Patient states that he feels his strength on his left side has improved. Patient denies any acute neurological changes since his admission. Therapy states patient has been progressing well and today was able to ambulate greater than 50 feet. Nurse reports patient's systolic blood pressure been slightly elevated with pressures greater than 160. - Constitutional Vitals: Temp Pulse Resp BP Pulse Ox 98.7 F 63 15 168/86 92 12/09/18 08:29 12/09/18 08:29 12/09/18 08:29 12/09/18 08:29 12/09/18 08:29 General appearance: Present: cooperative, A&O X 3, pleasant, obese, answers questions appropriately. Absent: severe distress - Head Head exam: Present: atraumatic, normocephalic - Eye Eye exam: Present: PERRL, conjuntiva pink, sclera anicteric Pupils: Present: PERRL - Neck Neck exam general surgery: Present: supple, trachea midline. Absent: lymphadenopathy - Respiratory Respiratory exam: Present: CTAB. Absent: accessory muscle use, rales, rhonchi, wheezes - Cardiovascular Cardiovascular exam: Present: RRR, +S1, +S2. Absent: diastolic murmur, gallop, rubs, systolic murmur - GI/Abdominal GI/Abdominal exam: Present: normal bowel sounds, soft, no peritoneal signs. Absent: distended, tenderness - Extremities Exam Extremities exam: Present: warm, radial pulses palpable and symmetrical. Absent: calf tenderness, cyanotic, pedal edema - Neurological Exam Neurological exam: Present: CN II-XII intact, oriented X3, no focal deficits. Absent: pronater drift, facial droop, speech deficit Additional comments: Patient continues with left hemiparesis with left extremities had 4/5 muscle strength in right extremities is 5/5 muscle strength. - Skin Skin exam: Present: dry, intact Internal Medicine: Result - Labs CBC & Chem 7: 12/07/18 15:52 12/08/18 13:51 Labs: BMP 12/08/18 13:51 Sodium 134 L Potassium 3.9 Chloride 103 Carbon Dioxide 24 BUN 21 Creatinine 1.30 Glucose 215 H Calcium 9.2 - ABG Interpretation ABG results: PT/INR, D-dimer PT 23.6 Seconds (9.4-12.1) H 12/03/18 07:04 - VTE Documentation of Mechanical Device: Intermittent pneumatic compression device Consult Discharge Plan - Plan Referrals: Zachary Galdamez, MIKKI [Primary Care Provider] -
[2018-12-09] MEDS ORDERED: CloNIDine Patch 0.1 MG PATCH (WEEKLY) TD SCH (11:15)
--- NOTE | 2018-12-09 11:21 | Internal Med Progress Note ---
Date of Encounter: 12/09/18 Time of Encounter: 11:21 - Assessment and plan (1) CVA (cerebrovascular accident due to intracerebral hemorrhage) Current Visit: Yes Status: Acute Qualifiers: Cerebral hemorrhage location: unspecified cerebral location Laterality: right Qualified Code(s): I61.9 - Nontraumatic intracerebral hemorrhage, unspecified (2) HTN (hypertension) Current Visit: Yes Status: Chronic Qualifiers: Hypertension type: essential hypertension Qualified Code(s): I10 - Essential (primary) hypertension (3) Diabetes 1.5, managed as type 2 Current Visit: Yes Status: Chronic (4) Chronic renal disease, stage 3, moderately decreased glomerular filtration rate between 30-59 mL/min/1.73 square meter Current Visit: Yes Status: Chronic (5) A-fib Current Visit: Yes Status: Chronic Qualifiers: Atrial fibrillation type: persistent Qualified Code(s): I48.1 - Persistent atrial fibrillation (6) CHF (congestive heart failure) Current Visit: Yes Status: Acute Qualifiers: Heart failure type: unspecified Heart failure chronicity: unspecified Qualified Code(s): I50.9 - Heart failure, unspecified - Subjective Interval history: Patient appears relaxed and currently denies any discomforts or shortness of breath. Patient has had several episodes of shortness of breath over the past few days but today states that his breathing has improved. He denies any productive cough. Patient states that he feels his strength on his left side has improved. Patient denies any acute neurological changes since his admission. Therapy states patient has been progressing well and today was able to ambulate greater than 50 feet. Nurse reports patient's systolic blood pressure been slightly elevated with pressures greater than 160. - Constitutional Vitals: Temp Pulse Resp BP Pulse Ox 98.7 F 63 15 168/86 92 12/09/18 08:29 12/09/18 08:29 12/09/18 08:29 12/09/18 08:29 12/09/18 08:29 General appearance: Present: cooperative, A&O X 3, pleasant, obese, answers questions appropriately. Absent: severe distress Internal Medicine: Result - Labs CBC & Chem 7: 12/07/18 15:52 12/08/18 13:51 Labs: BMP 12/08/18 13:51 Sodium 134 L Potassium 3.9 Chloride 103 Carbon Dioxide 24 BUN 21 Creatinine 1.30 Glucose 215 H Calcium 9.2 - ABG Interpretation ABG results: PT/INR, D-dimer PT 23.6 Seconds (9.4-12.1) H 12/03/18 07:04 - VTE Documentation of Mechanical Device: Intermittent pneumatic compression device Consult Discharge Plan - Plan Referrals: Zachary Galdamez CNP [Primary Care Provider] -
[2018-12-09] MEDS: *HR* Rivaroxaban 10 MG TABLET PO SCH (16:45)
[2018-12-09] MEDS: cloNIDine HCl 0.1 MG TABLET PO PRN (21:58)
[2018-12-10] MEDS: hydrALAZINE 10 MG TABLET PO SCH ×5 (00:06→23:11)
[2018-12-10] MEDS: Insulin LISPRO 300 UNITS/3 ML VIAL SQ SCH ×4 (08:28→20:35)
[2018-12-10] MEDS: Magnesium Oxide 400 MG TABLET PO SCH (08:37)
[2018-12-10] MEDS: Furosemide 20 MG TABLET PO SCH ×2 (08:37→16:43)
[2018-12-10] MEDS: Multivit/Ca/Min/Fe/FA 1 TAB TABLET PO SCH (08:37)
[2018-12-10] MEDS: Cyanocobalamin (B-12) 1,000 MCG TABLET PO SCH (08:38)
[2018-12-10] MEDS: amLODIPine 5 MG TABLET PO SCH (08:38)
[2018-12-10] MEDS: *HR* SitaGLIPtin 100 MG TABLET PO SCH (08:38)
[2018-12-10] MEDS: *HR* Glimepiride 4 MG TABLET PO SCH (08:40)
--- NOTE | 2018-12-10 10:32 | Internal Med Progress Note ---
Addendum entered and electronically signed by Marques Tapia MD 12/10/18 12:19: I have personally performed a face to face evaluation on this patient. I have r eviewed and agree with the care plan. History and Exam by me shows: Patient is without complaint. He continues strengthening and he is proud of his standing time, day. He did not walk as much as yesterday. Bowels are moving well without any significant change. Discussed care with other providers and/or nursing. Patient has no complaint of chest discomfort, dyspnea, orthopnea, palpitations, nausea or vomiting, constipation or diarrhea, other changes in bowel habits, difficulty with urination, rash or itching, or other new complaints, except as mentioned above. Review of systems is otherwise negative. Examination: (Except as mentioned above): General: In no apparent distress. Alert and oriented 3. Nondiaphoretic. Head: Atraumatic and normocephalic. Respiratory: No use of accessory muscles. Lungs are clear throughout. Normal airflow. Cardiovascular: Irregularly irregular consistent with atrial fibrillation, as per his baseline, without murmur appreciated. Abdomen: Bowel sounds are normal. No hepatosplenomegaly mass or tenderness appreciated. Obese and therefore difficult to palpate deeply. Patient is examined upright in chair and this also limits exam. Extremities: No cyanosis clubbing or edema. Skin: Warm and non-diaphoretic with no new lesions noted. Blood pressure is slightly better with the Catapres TTS patch. We will watch for a day or two, then consider weaning his hydralazine. Original Note: Date of Encounter: 12/10/18 Time of Encounter: 10:29 - Assessment and plan (1) CVA (cerebrovascular accident due to intracerebral hemorrhage) Current Visit: Yes Status: Acute Assessment and plan: No acute issues. Patient continues with left hemiparesis with muscle strength 4/5. Patient states that physical therapy has been progressing well and therapy reports patient has ambulated greater than 50 feet yesterday. Patient continue with physical therapy and current plan of care. Qualifiers: Cerebral hemorrhage location: unspecified cerebral location Laterality: right Qualified Code(s): I61.9 - Nontraumatic intracerebral hemorrhage, unspecified (2) HTN (hypertension) Current Visit: Yes Status: Chronic Assessment and plan: Patient continues to have slightly elevated systolic blood pressure between 160- 170. We will continue on current medications and evaluate patient's blood pressures for titration of medications. Patient started on a 0.1 Catapres patch Qualifiers: Hypertension type: essential hypertension Qualified Code(s): I10 - Essential (primary) hypertension (3) Diabetes 1.5, managed as type 2 Current Visit: Yes Status: Chronic Assessment and plan: No acute issues. Patient's glucose has been fairly well-controlled with most readings less than 200, but noted to continue to have occasional readings in late afternoon greater than 250. We had increased current sliding scale coverage to medium dosing and continue with coverage per sliding scale. Patient to continue with oral diabetic medications. (4) Chronic renal disease, stage 3, moderately decreased glomerular filtration rate between 30-59 mL/min/1.73 square meter Current Visit: Yes Status: Chronic Assessment and plan: No acute issues. Patient's current creatinine of 1.21. We will continue to monitor serial labs and continue on current medications (5) A-fib Current Visit: Yes Status: Chronic Assessment and plan: Patient's current ventricular rate is less than 100 controlled. He denies any chest discomforts palpitations. We will continue on current medications. Qualifiers: Atrial fibrillation type: persistent Qualified Code(s): I48.1 - Persistent atrial fibrillation (6) CHF (congestive heart failure) Current Visit: Yes Status: Chronic Assessment and plan: Patient with long history of CHF. No current issues. Patient denies any dyspnea at this time. Lungs are clear throughout [place] but diminished bases. Minimal edema. Patient is continue on current medications Qualifiers: Heart failure type: unspecified Heart failure chronicity: unspecified Qualified Code(s): I50.9 - Heart failure, unspecified - Time Spent With Patient less than 15 minutes - Subjective Interval history: Patient appears relaxed and currently denies any discomforts or shortness breath. Patient denies any further loose bowel movements. Patient has stated that he is pleased that he has been regaining strength to his left arm and leg. Therapy reports patient has ambulated greater than 50 feet yesterday. - Constitutional Vitals: Temp Pulse Resp BP Pulse Ox 98.6 F 66 17 153/56 96 12/10/18 08:34 12/10/18 08:34 12/10/18 08:34 12/10/18 08:34 12/10/18 08:34 General appearance: Present: cooperative, A&O X 3, pleasant, obese, answers q uestions appropriately. Absent: severe distress - Head Head exam: Present: atraumatic, normocephalic - Eye Eye exam: Present: PERRL, conjuntiva pink, sclera anicteric Pupils: Present: PERRL - Neck Neck exam general surgery: Present: supple, trachea midline. Absent: lymphadenopathy - Respiratory Respiratory exam: Present: CTAB. Absent: accessory muscle use, rales, rhonchi, wheezes - Cardiovascular Cardiovascular exam: Present: RRR, +S1, +S2. Absent: diastolic murmur, gallop, rubs, systolic murmur - GI/Abdominal GI/Abdominal exam: Present: normal bowel sounds, soft, no peritoneal signs. Absent: distended, tenderness - Extremities Exam Extremities exam: Present: pedal edema, warm, radial pulses palpable and symmetrical. Absent: calf tenderness, cyanotic - Neurological Exam Neurological exam: Present: CN II-XII intact, oriented X3. Absent: pronater drift, facial droop, speech deficit Additional comments: Patient continues with left hemiparesis with left extremities at 4/5 muscle strength in right extremities at 5/5. - Skin Skin exam: Present: dry, intact Internal Medicine: Result - Labs CBC & Chem 7: 12/07/18 15:52 12/08/18 13:51 - ABG Interpretation ABG results: PT/INR, D-dimer PT 23.6 Seconds (9.4-12.1) H 12/03/18 07:04 - VTE Documentation of Mechanical Device: Intermittent pneumatic compression device Consult Discharge Plan - Plan Referrals: Zachary Galdamez CNP [Primary Care Provider] -
[2018-12-10] MEDS: *HR* Rivaroxaban 10 MG TABLET PO SCH (16:43)
[2018-12-10] MEDS: Acetaminophen 325 MG TABLET PO PRN ×2 (20:33→21:26)
[2018-12-11] MEDS: hydrALAZINE 10 MG TABLET PO SCH ×3 (05:26→17:01)
[2018-12-11] MEDS: Acetaminophen 325 MG TABLET PO PRN ×2 (05:26→20:35)
[2018-12-11] MEDS: Insulin LISPRO 300 UNITS/3 ML VIAL SQ SCH ×4 (08:08→20:37)
[2018-12-11] MEDS: Cyanocobalamin (B-12) 1,000 MCG TABLET PO SCH (08:09)
[2018-12-11] MEDS: Magnesium Oxide 400 MG TABLET PO SCH (08:09)
[2018-12-11] MEDS: Furosemide 20 MG TABLET PO SCH ×2 (08:09→17:01)
[2018-12-11] MEDS: *HR* Glimepiride 4 MG TABLET PO SCH (08:09)
[2018-12-11] MEDS: *HR* SitaGLIPtin 100 MG TABLET PO SCH (08:09)
[2018-12-11] MEDS: Multivit/Ca/Min/Fe/FA 1 TAB TABLET PO SCH (08:09)
[2018-12-11] MEDS: amLODIPine 5 MG TABLET PO SCH (08:09)
--- NOTE | 2018-12-11 10:32 | Internal Med Progress Note ---
Addendum entered and electronically signed by Evelina Rosales 12/12/18 11:34: I have personally performed a face to face evaluation on this patient. I have reviewed and agree with the care plan. Original Note: Date of Encounter: 12/11/18 Time of Encounter: 10:31 - Assessment and plan (1) CVA (cerebrovascular accident due to intracerebral hemorrhage) Current Visit: Yes Status: Acute Assessment and plan: Continue PT, OT and ST. Will follow progress. No new neurological deficits. Follow up with neurology as scheduled. Qualifiers: Cerebral hemorrhage location: unspecified cerebral location Laterality: right Qualified Code(s): I61.9 - Nontraumatic intracerebral hemorrhage, unspecified (2) HTN (hypertension) Current Visit: Yes Status: Chronic Assessment and plan: Controlled with current medication. Continue clonidine as needed. Will monitor blood pressure. Qualifiers: Hypertension type: essential hypertension Qualified Code(s): I10 - Essential (primary) hypertension (3) Diabetes 1.5, managed as type 2 Current Visit: Yes Status: Chronic Assessment and plan: Controlled with sliding scale insulin. Continue to monitor blood sugars. Will adjust medications as necessary. (4) Chronic renal disease, stage 3, moderately decreased glomerular filtration rate between 30-59 mL/min/1.73 square meter Current Visit: Yes Status: Chronic Assessment and plan: Will monitor labs. Avoid nephrotoxic agents. (5) A-fib Current Visit: Yes Status: Chronic Assessment and plan: Rate and rhythm stable. continue xarelto. Qualifiers: Atrial fibrillation type: persistent Qualified Code(s): I48.1 - Persistent atrial fibrillation - Time Spent With Patient less than 15 minutes - Subjective Interval history: Participating well with therapy. Denies any new neurological deficits. Denies fever, chills, nausea vomiting, SOB or chest pain. maintaining O2 sats with O2 per NC at 1 liter. Maintaining appetite and hydration. - Constitutional Vitals: Temp Pulse Resp BP Pulse Ox 98.1 F 80 15 148/76 95 12/11/18 04:32 12/11/18 04:32 12/11/18 04:32 12/11/18 04:32 12/11/18 04:32 General appearance: Present: cooperative, A&O X 3, pleasant, obese, answers questions appropriately. Absent: severe distress - Head Head exam: Present: atraumatic, normocephalic - Eye Eye exam: Present: PERRL, conjuntiva pink, sclera anicteric Pupils: Present: PERRL - Neck Neck exam general surgery: Present: supple, trachea midline. Absent: lymphadenopathy - Respiratory Respiratory exam: Present: CTAB. Absent: accessory muscle use, rales, rhonchi, wheezes - Cardiovascular Cardiovascular exam: Present: irregular rhythm, +S1, +S2. Absent: diastolic murmur, gallop, rubs, systolic murmur - GI/Abdominal GI/Abdominal exam: Present: normal bowel sounds, soft, no peritoneal signs. Absent: distended, tenderness - Extremities Exam Extremities exam: Present: warm, radial pulses palpable and symmetrical. Absent: calf tenderness, cyanotic, pedal edema - Neurological Exam Neurological exam: Present: CN II-XII intact, oriented X3, no focal deficits. Absent: pronater drift, facial droop, speech deficit - Skin Skin exam: Present: dry, intact Internal Medicine: Result - Labs CBC & Chem 7: 12/07/18 15:52 12/08/18 13:51 - ABG Interpretation ABG results: PT/INR, D-dimer PT 23.6 Seconds (9.4-12.1) H 12/03/18 07:04 - VTE Documentation of Mechanical Device: Intermittent pneumatic compression device Consult Discharge Plan - Plan Referrals: Zachary Galdamez CNP [Primary Care Provider] -
[2018-12-11] MEDS: *HR* Rivaroxaban 10 MG TABLET PO SCH (17:01)
[2018-12-12] MEDS: hydrALAZINE 10 MG TABLET PO SCH ×4 (00:14→17:02)
[2018-12-12] MEDS: Insulin LISPRO 300 UNITS/3 ML VIAL SQ SCH ×4 (07:30→20:49)
[2018-12-12] MEDS: Furosemide 20 MG TABLET PO SCH ×2 (07:52→17:01)
[2018-12-12] MEDS: cloNIDine HCl 0.1 MG TABLET PO PRN (07:52)
[2018-12-12] MEDS: *HR* SitaGLIPtin 100 MG TABLET PO SCH (07:53)
[2018-12-12] MEDS: Cyanocobalamin (B-12) 1,000 MCG TABLET PO SCH (07:54)
[2018-12-12] MEDS: *HR* Glimepiride 4 MG TABLET PO SCH (07:54)
[2018-12-12] MEDS: amLODIPine 5 MG TABLET PO SCH (07:55)
[2018-12-12] MEDS: Magnesium Oxide 400 MG TABLET PO SCH (07:57)
[2018-12-12] MEDS: Multivit/Ca/Min/Fe/FA 1 TAB TABLET PO SCH (07:58)
[2018-12-12] MEDS: Acetaminophen 325 MG TABLET PO PRN (09:44)
--- NOTE | 2018-12-12 11:36 | Internal Med Progress Note ---
Date of Encounter: 12/12/18 Time of Encounter: 11:30 - Subjective Interval history: - Assessment and plan (1) CVA (cerebrovascular accident due to intracerebral hemorrhage) Current Visit: Yes Status: Acute Assessment and plan: Hemorrhagic pontine area Previous 4 strokes were ischemic. PT was taken off anti coagulant for duration of a month. Patient continues with left hemiparesis with muscle strength 4/5. Patient states that physical therapy has been progressing well. Patient's strength to his left side appears to have improved over the past week per therapy. No new issues. He is trying to wheel self in wheelchair with r arm. Patient is progressing well per therapy with no new weakness no head ache. Oriented x 3 Deconditioned and doing well in therapy. Qualifiers: Cerebral hemorrhage location: unspecified cerebral location Laterality: right Qualified Code(s): I61.9 - Nontraumatic intracerebral hemorrhage, unspecified (2) HTN (hypertension) Current Visit: Yes Status: Chronic Assessment and plan: Patient has systolic 116-137. A bit too Low. This is current goal range 140 to 150 as he is post CVA will adjust his BP medications and evaluate patient's blood pressures for titration of medications Qualifiers: Hypertension type: essential hypertension Qualified Code(s): I10 - Essential (primary) hypertension (3) Diabetes 1.5, managed as type 2 Current Visit: Yes Status: Chronic Assessment and plan: Patient's glucose has been a few low readings. He is on AMARYL 4 mg and januvia 100mg - will reduce dose of januvia to 25 mg. continue amaryl the same will monitor to avoid possible hypoglycemia. Continue sliding scale coverage and evaluate patient's long-acting coverage for titration Does have hx b12 def (4) Chronic renal disease, stage 3, moderately decreased glomerular filtration rate between 30-59 mL/min/1.73 square meter Current Visit: Yes Status: Chronic Assessment and plan: No acute issues. Patient's current creatinine of 1.01. We will continue to monitor serial labs and continue on current medications (5) A-fib Current Visit: Yes Status: Chronic Assessment and plan: Patient's current ventricular rate is less than 100 controlled. He denies any chest discomforts palpitations. We will continue on current medications. currently off blood thinner for hem cva Qualifiers: Atrial fibrillation type: persistent Qualified Code(s): I48.1 - Persistent atrial fibrillation (6) Hx Anemia Hb over 8 both B12 and IRON deficient no active bleed will repeat cbc has hx b12 Def taking b12 current level ok on oral will add Iron oral has hx of constipation so will add fiber and probiotic (7) hx hypothyroid on synthoid monitor TSH. (8) Intestinal malabsorption with low magnesium, low B12, low iron, low K. will DC the PPI as can exacerbate malabsorption. Will use Pepcid for GI protect ion will check vit D level and add - Time Spent With Patient less than 25 minutes - Subjective Interval history: Patient talkative , he is [place]. He is up in chair. Mood good. Pt is supportive. Patient states that he feels his strength on his left side has improved slightly. Pt participating in Rehab, says its a good work out. He is eating well. Care plans discussed with pt and Patient denies any acute neurological changes since his admission - Constitutional General appearance: Present: fair skinned WM cooperative, A&O X 3, pleasant, very [place] , answers questions appropriately. good eye contact More energetic - Eye Eye exam: Present: PERRL, conjuntiva pink Pupils: Present: PERRL - Neck Neck exam general surgery: Present: supple, trachea midline. Absent: lymphadenopathy - Respiratory Respiratory exam: Present: CTAB. Absent: accessory muscle use, rales, rhonchi, wheezes - Cardiovascular Cardiovascular exam: Present: irregular , +S1, +S2. Absent: trace SM - GI/Abdominal GI/Abdominal exam: Present: normal bowel sounds, soft, no peritoneal signs. Absent: distended, tenderness - Extremities Exam Extremities exam: Present: warm, radial pulses palpable and symmetrical. Absent: calf tenderness, cyanotic, pedal edema - Neurological Exam Neurological exam: Present: CN II-XII intact, oriented X3. Absent: pronater drift, facial droop, speech deficit Additional comments: Patient continues to have left hemiparesis with his left extremities at 4/5 muscle strength in right extremities at 5/5 muscle strength - Skin Skin exam: Present: [place] skin is dry, intact - Constitutional Vitals: Temp Pulse Resp BP Pulse Ox 98.0 F 90 16 169/69 91 12/12/18 07:36 12/12/18 07:36 12/12/18 07:36 12/12/18 07:36 12/12/18 07:36 General appearance: Present: answers questions appropriately. Absent: severe distress Internal Medicine: Result - Labs CBC & Chem 7: 12/07/18 15:52 12/08/18 13:51 - ABG Interpretation ABG results: PT/INR, D-dimer PT 23.6 Seconds (9.4-12.1) H 12/03/18 07:04 - VTE Documentation of Mechanical Device: Intermittent pneumatic compression device Consult Discharge Plan - Plan Referrals: Zachary Galdamez CNP [Primary Care Provider] -
[2018-12-12] MEDS: *HR* Rivaroxaban 10 MG TABLET PO SCH (17:02)
[2018-12-13] MEDS: hydrALAZINE 10 MG TABLET PO SCH ×2 (00:21→06:15)
[2018-12-13] MEDS: Acetaminophen 325 MG TABLET PO PRN ×3 (00:21→19:17)
[2018-12-13] MEDS: Insulin LISPRO 300 UNITS/3 ML VIAL SQ SCH ×4 (07:35→20:33)
[2018-12-13] MEDS: amLODIPine 5 MG TABLET PO SCH (08:59)
[2018-12-13] MEDS: Magnesium Oxide 400 MG TABLET PO SCH (09:01)
[2018-12-13] MEDS: Furosemide 20 MG TABLET PO SCH ×2 (09:01→16:58)
[2018-12-13] MEDS: Cyanocobalamin (B-12) 1,000 MCG TABLET PO SCH (09:01)
[2018-12-13] MEDS: *HR* Glimepiride 4 MG TABLET PO SCH (09:01)
[2018-12-13] MEDS: *HR* SitaGLIPtin 100 MG TABLET PO SCH (09:02)
[2018-12-13] MEDS: Multivit/Ca/Min/Fe/FA 1 TAB TABLET PO SCH (09:02)
[2018-12-13] MEDS: CloNIDine Patch 0.1 MG PATCH (WEEKLY) TD SCH (13:00)
--- NOTE | 2018-12-13 13:20 | Internal Med Progress Note ---
Date of Encounter: 12/13/18 Time of Encounter: 01:20 - Subjective Interval history: - Assessment and plan (1) CVA (cerebrovascular accident due to intracerebral hemorrhage) Current Visit: Yes Status: Acute Assessment and plan: Hemorrhagic pontine area Previous 4 strokes were ischemic. PT was taken off anti coagulant for duration of a month. Patient continues with left hemiparesis with muscle strength 4/5. Patient states that physical therapy has been progressing well. Patient's strength to his left side appears to have improved over the past week per therapy. No new issues. He is trying to wheel self in wheelchair with r arm. Patient is progressing well per therapy with no new weakness no head ache. Oriented x 3 Deconditioned and doing well in therapy. Qualifiers: Cerebral hemorrhage location: unspecified cerebral location Laterality: right Qualified Code(s): I61.9 - Nontraumatic intracerebral hemorrhage, unspecified (2) HTN (hypertension) Current Visit: Yes Status: Chronic Assessment and plan: Patient has systolic 116-137. A bit too Low. This is current goal range 140 to 150 as he is post CVA will adjust his BP medications and evaluate patient's blood pressures for titration of medications Qualifiers: Hypertension type: essential hypertension Qualified Code(s): I10 - Essential (primary) hypertension (3) Diabetes 1.5, managed as type 2 Current Visit: Yes Status: Chronic Assessment and plan: Patient's glucose has been a few low readings. He is on AMARYL 4 mg and januvia 100mg - will reduce dose of januvia to 25 mg. continue amaryl the same will monitor to avoid possible hypoglycemia. Continue sliding scale coverage and evaluate patient's long-acting coverage for titration Does have hx b12 def (4) Chronic renal disease, stage 3, moderately decreased glomerular filtration rate between 30-59 mL/min/1.73 square meter Current Visit: Yes Status: Chronic Assessment and plan: No acute issues. Patient's current creatinine of 1.01. We will continue to monitor serial labs and continue on current medications (5) A-fib Current Visit: Yes Status: Chronic Assessment and plan: Patient's current ventricular rate is less than 100 controlled. He denies any chest discomforts palpitations. We will continue on current medications. currently off blood thinner for hem cva Qualifiers: Atrial fibrillation type: persistent Qualified Code(s): I48.1 - Persistent atrial fibrillation (6) Hx Anemia Hb over 8 both B12 and IRON deficient no active bleed will repeat cbc has hx b12 Def taking b12 current level ok on oral will add Iron oral has hx of constipation so will add fiber and probiotic (7) hx hypothyroid on synthoid monitor TSH. (8) Intestinal malabsorption with low magnesium, low B12, low iron, low K. will DC the PPI as can exacerbate malabsorption. Will use Pepcid for GI protect ion will check vit D level and add - Time Spent With Patient less than 25 minutes - Subjective Interval history: Patient talkative , he is [place]. He is up in chair. Mood good. Pt is supportive. Patient states that he feels his strength on his left side has improved slightly. Pt participating in Rehab, says its a good work out. He is eating well. Care plans discussed with pt and Patient denies any acute neurological changes since his admission - Constitutional General appearance: Present: fair skinned WM cooperative, A&O X 3, pleasant, very [place] , answers questions appropriately. good eye contact More energetic - Eye Eye exam: Present: PERRL, conjuntiva pink Pupils: Present: PERRL - Neck Neck exam general surgery: Present: supple, trachea midline. Absent: lymphadenopathy - Respiratory Respiratory exam: Present: CTAB. Absent: accessory muscle use, rales, rhonchi, wheezes - Cardiovascular Cardiovascular exam: Present: irregular , +S1, +S2. Absent: trace SM - GI/Abdominal GI/Abdominal exam: Present: normal bowel sounds, soft, no peritoneal signs. Absent: distended, tenderness - Extremities Exam Extremities exam: Present: warm, radial pulses palpable and symmetrical. Absent: calf tenderness, cyanotic, pedal edema - Neurological Exam Neurological exam: Present: CN II-XII intact, oriented X3. Absent: pronater drift, facial droop, speech deficit Additional comments: Patient continues to have left hemiparesis with his left extremities at 4/5 muscle strength in right extremities at 5/5 muscle strength - Skin Skin exam: Present: bal[place] skin is dry, intact - Constitutional Vitals: Temp Pulse Resp BP Pulse Ox 98.1 F 69 14 143/75 95 12/13/18 12:03 12/13/18 12:03 12/13/18 12:03 12/13/18 12:03 12/13/18 12:03 General appearance: Present: answers questions appropriately. Absent: severe distress Internal Medicine: Result - Labs CBC & Chem 7: 12/07/18 15:52 12/08/18 13:51 - ABG Interpretation ABG results: PT/INR, D-dimer PT 23.6 Seconds (9.4-12.1) H 12/03/18 07:04 - VTE Documentation of Mechanical Device: Intermittent pneumatic compression device Consult Discharge Plan - Plan Referrals: Zachary Galdamez CNP [Primary Care Provider] -
[2018-12-13] MEDS: *HR* Rivaroxaban 10 MG TABLET PO SCH (16:58)
[2018-12-13] MEDS: hydrALAZINE 10 MG TABLET PO PRN (17:13)
[2018-12-13] MEDS: Famotidine 20 MG TABLET PO SCH (19:17)
[2018-12-13] MEDS: Psyllium 1 PACKET POWD.PACK PO SCH (19:18)
[2018-12-13] MEDS: Lactobacillus 1 EACH CAP.SPRINK PO SCH (19:18)
[2018-12-14] MEDS: Acetaminophen 325 MG TABLET PO PRN ×3 (00:37→20:01)
[2018-12-14 06:49] LABS: Hematocrit 26.5 % (37.5-50.1); Hemoglobin 8.8 g/dL (12.9-16.9); Mean Corpuscular HGB Conc 33.2 g/dL (31.6-35.5); Mean Corpuscular Volume 87.5 fL (83.0-100.0); Mean Platelet Volume 9.9 fL (9.4-12.4); Platelet Count 196 K/mcL (140-400); Red Blood Count 3.03 M/mcL (4.19-5.50); Red Cell Distribution Width 14.1 % (11.5-14.5)
[2018-12-14 07:06] LABS: BUN/Creatinine Ratio 15 (6-26); Blood Urea Nitrogen 19 mg/dL (8-23); Carbon Dioxide 26 mEq/L (23-29); Chloride 104 mEq/L (98-107); Glucose 67 mg/dL (70-105); Osmolality,Calculated 283 (280-300); Potassium 3.9 mEq/L (3.5-5.1); Sodium 136 mEq/L (136-145); eGFR For Non-African Americans 58 (> 60)
[2018-12-14 07:22] LABS: Thyroid Stimulating Hormone 3.86 mcIU/mL (0.340-5.600)
[2018-12-14] MEDS: Lactobacillus 1 EACH CAP.SPRINK PO SCH ×2 (09:47→20:00)
[2018-12-14] MEDS: Cyanocobalamin (B-12) 1,000 MCG TABLET PO SCH (09:47)
[2018-12-14] MEDS: amLODIPine 5 MG TABLET PO SCH (09:47)
[2018-12-14] MEDS: Cholecalciferol (D-3) 1,000 UNIT TABLET PO SCH (09:47)
[2018-12-14] MEDS: Furosemide 20 MG TABLET PO SCH ×2 (09:47→17:23)
[2018-12-14] MEDS: *HR* Glimepiride 4 MG TABLET PO SCH (09:47)
[2018-12-14] MEDS: Magnesium Oxide 400 MG TABLET PO SCH (09:48)
[2018-12-14] MEDS: Multivit/Ca/Min/Fe/FA 1 TAB TABLET PO SCH (09:48)
[2018-12-14] MEDS: *HR* SitaGLIPtin 25 MG TABLET PO SCH (09:48)
[2018-12-14] MEDS: Insulin LISPRO 300 UNITS/3 ML VIAL SQ SCH ×5 (09:49→20:00)
[2018-12-14] MEDS: Psyllium 1 PACKET POWD.PACK PO SCH ×2 (09:49→20:00)
--- NOTE | 2018-12-14 10:52 | Internal Med Progress Note ---
Addendum entered and electronically signed by Marques Tapia MD 12/14/18 11:42: I have personally performed a face to face evaluation on this patient. I have r eviewed and agree with the care plan. History and Exam by me shows: Patient feels he is doing well and wants to go home. We discussed his safety and transfers. Nursing notes that he has a bleeding area at his stage II decubitus, at his coccygeal region. Patient does not want to start on Metamucil as he feels that his bowel movements are normal for him. He denies any other problem. Discussed care with other providers and/or nursing. Patient has no complaint of chest discomfort, dyspnea, orthopnea, palpitations, nausea or vomiting, constipation or diarrhea, other changes in bowel habits, difficulty with urination, rash or itching, or other new complaints, except as mentioned above. Review of systems is otherwise negative. Examination: (Except as mentioned above): General: In no apparent distress. Alert and oriented 3. Nondiaphoretic. The patient is on oxygen at 1 L by nasal cannula. Head: Atraumatic and normocephalic. Respiratory: No use of accessory muscles. Lungs are clear throughout. Normal airflow. Cardiovascular: Regular rate and rhythm without murmur appreciated. Abdomen: Bowel sounds are normal. No hepatosplenomegaly mass or tenderness appreciated. Obese and therefore difficult to palpate deeply. Patient is examined upright in chair and this also limits exam. Extremities: No cyanosis clubbing or edema. Skin: Warm and non-diaphoretic with no new lesions noted. Original Note: Date of Encounter: 12/14/18 Time of Encounter: 10:50 - Assessment and plan (1) CVA (cerebrovascular accident due to intracerebral hemorrhage) Current Visit: Yes Status: Acute Assessment and plan: No acute issues. Patient continues with left hemiparesis with muscle strength 4 +/5. Patient states that physical therapy has been progressing well and therapy reports patient has ambulated greater than 50 feet yesterday. Patient continue with physical therapy and current plan of care. Qualifiers: Cerebral hemorrhage location: unspecified cerebral location Laterality: right Qualified Code(s): I61.9 - Nontraumatic intracerebral hemorrhage, unspecified (2) HTN (hypertension) Current Visit: Yes Status: Chronic Assessment and plan: Patient continues to have slightly elevated systolic blood pressure between >160. We will continue on current medications and evaluate patient's blood pressures for titration of medications. Patient started on a 0.1 Catapres patch, with minimal effect at this dose. We will review patient's medications and discuss with Dr. Tapia Qualifiers: Hypertension type: essential hypertension Qualified Code(s): I10 - Essential (primary) hypertension (3) Diabetes 1.5, managed as type 2 Current Visit: Yes Status: Chronic Assessment and plan: No acute issues. Patient's glucose has been fairly well-controlled with most readings less than 170. We had increased current sliding scale coverage to medium dosing and continue with coverage per sliding scale. Patient to continue with oral diabetic medications. (4) Chronic renal disease, stage 3, moderately decreased glomerular filtration rate between 30-59 mL/min/1.73 square meter Current Visit: Yes Status: Chronic Assessment and plan: No acute issues. Patient's current creatinine of 1.23. We will continue to monitor serial labs and continue on current medications (5) A-fib Current Visit: Yes Status: Chronic Assessment and plan: Patient's current ventricular rate is less than 100 controlled. He denies any chest discomforts palpitations. We will continue on current medications. Qualifiers: Atrial fibrillation type: persistent Qualified Code(s): I48.1 - Persistent atrial fibrillation (6) CHF (congestive heart failure) Current Visit: Yes Status: Chronic Assessment and plan: Patient with long history of CHF. No current issues. Patient denies any dyspnea at this time. Lungs are clear throughout upper [place] but diminished bases. Minimal edema. Patient is continue on current medications Qualifiers: Heart failure type: unspecified Heart failure chronicity: unspecified Qualified Code(s): I50.9 - Heart failure, unspecified - Time Spent With Patient less than 15 minutes - Subjective Interval history: Patient appears relaxed and currently denies any discomforts or shortness breath. Patient denies any further loose bowel movements. Patient has stated that he is pleased that he has been regaining strength to his left arm and leg. - Constitutional Vitals: Temp Pulse Resp BP Pulse Ox 97.6 F 65 18 172/63 96 12/14/18 07:24 12/14/18 07:24 12/14/18 07:24 12/14/18 07:24 12/14/18 07:24 General appearance: Present: A&O X 3, pleasant, answers questions appropriately. Absent: severe distress - Head Head exam: Present: atraumatic, normocephalic - Eye Eye exam: Present: PERRL, conjuntiva pink, sclera anicteric Pupils: Present: PERRL - Neck Neck exam general surgery: Present: supple, trachea midline. Absent: lymphadenopathy - Respiratory Respiratory exam: Present: decreased breath sounds, CTAB. Absent: accessory muscle use, rales, rhonchi, wheezes - Cardiovascular Cardiovascular exam: Present: RRR, +S1, +S2. Absent: diastolic murmur, gallop, rubs, systolic murmur - GI/Abdominal GI/Abdominal exam: Present: normal bowel sounds, soft, no peritoneal signs. Absent: distended, tenderness - Extremities Exam Extremities exam: Present: warm, radial pulses palpable and symmetrical. Absent: calf tenderness, cyanotic, pedal edema - Neurological Exam Neurological exam: Present: CN II-XII intact, oriented X3. Absent: pronater drift, facial droop, speech deficit Additional comments: Patient continues to show slight left hemiparesis with left extremities at 4+/5 and right extremities at 5/5. - Skin Skin exam: Present: dry, intact Internal Medicine: Result - Labs CBC & Chem 7: 12/14/18 06:17 12/14/18 06:17 Labs: Short CBC 12/14/18 Range/Units 06:17 WBC 5.2 (4.3-11.1) K/mcL Hgb 8.8 L (12.9-16.9) g/dL Hct 26.5 L (37.5-50.1) % Plt Count 196 (140-400) K/mcL BMP 12/14/18 06:17 Sodium 136 Potassium 3.9 Chloride 104 Carbon Dioxide 26 BUN 19 Creatinine 1.23 Glucose 67 L Calcium 9.0 - ABG Interpretation ABG results: PT/INR, D-dimer PT 23.6 Seconds (9.4-12.1) H 12/03/18 07:04 - VTE Documentation of Mechanical Device: Intermittent pneumatic compression device Consult Discharge Plan - Plan Referrals: aZchary Galdamez, [employer] [Primary Care Provider] -
[2018-12-14] MEDS: Famotidine 20 MG TABLET PO SCH ×2 (11:50→20:00)
[2018-12-14] MEDS: *HR* Rivaroxaban 10 MG TABLET PO SCH (17:22)
[2018-12-14] MEDS: hydrALAZINE 10 MG TABLET PO PRN (20:01)
[2018-12-15] MEDS: Acetaminophen 325 MG TABLET PO PRN ×2 (05:20→16:37)
[2018-12-15] MEDS: Insulin LISPRO 300 UNITS/3 ML VIAL SQ SCH ×4 (07:26→20:41)
[2018-12-15] MEDS: Cholecalciferol (D-3) 1,000 UNIT TABLET PO SCH (08:34)
[2018-12-15] MEDS: Cyanocobalamin (B-12) 1,000 MCG TABLET PO SCH (08:34)
[2018-12-15] MEDS: *HR* Glimepiride 4 MG TABLET PO SCH (08:34)
[2018-12-15] MEDS: Famotidine 20 MG TABLET PO SCH ×2 (08:34→20:41)
[2018-12-15] MEDS: *HR* SitaGLIPtin 25 MG TABLET PO SCH (08:34)
[2018-12-15] MEDS: Lactobacillus 1 EACH CAP.SPRINK PO SCH ×2 (08:34→20:40)
[2018-12-15] MEDS: Furosemide 20 MG TABLET PO SCH ×2 (08:34→16:37)
[2018-12-15] MEDS: Magnesium Oxide 400 MG TABLET PO SCH (08:34)
[2018-12-15] MEDS: amLODIPine 5 MG TABLET PO SCH (08:34)
[2018-12-15] MEDS: Multivit/Ca/Min/Fe/FA 1 TAB TABLET PO SCH (08:35)
[2018-12-15] MEDS: Psyllium 1 PACKET POWD.PACK PO SCH ×2 (08:36→20:41)
--- NOTE | 2018-12-15 11:50 | Internal Med Progress Note ---
Addendum entered and electronically signed by Marques Tapia MD 12/15/18 12:30: Patient is fine without complaint. Is eating lunch and doing well. He is pleased with his progress. We talked about his potential discharge and a home safety visit, next week. He and his bring up the subject of an oxygen concentrator for his movement around the house. I told him we would explore. Discussed care with other providers and/or nursing. Patient has no complaint of chest discomfort, dyspnea, orthopnea, palpitations, nausea or vomiting, constipation or diarrhea, other changes in bowel habits, difficulty with urination, rash or itching, or other new complaints, except as mentioned above. Review of systems is otherwise negative. Examination: (Except as mentioned above): General: In no apparent distress. Alert and oriented 3. Nondiaphoretic. Head: Atraumatic and normocephalic. Respiratory: No use of accessory muscles. Lungs are clear throughout. Normal airflow. Cardiovascular: Irregularly irregular with no murmur appreciated. Abdomen: Bowel sounds are normal. No hepatosplenomegaly mass or tenderness appreciated. Obese and therefore difficult to palpate deeply. Patient is examined upright in chair and this also limits exam. Extremities: No cyanosis clubbing or edema. Skin: Warm and non-diaphoretic with no new lesions noted. Original Note: Date of Encounter: 12/15/18 Time of Encounter: 11:46 - Assessment and plan (1) CVA (cerebrovascular accident due to intracerebral hemorrhage) Current Visit: Yes Status: Acute Assessment and plan: making good improvement with thearpy. Continue PT, OT and ST. Will follow progress. No new neurological deficits. Follow up with neurology as scheduled. Qualifiers: Cerebral hemorrhage location: unspecified cerebral location Laterality: right Qualified Code(s): I61.9 - Nontraumatic intracerebral hemorrhage, unspecified (2) HTN (hypertension) Current Visit: Yes Status: Chronic Assessment and plan: Controlled with current medication. Continue clonidine as needed. Will monitor blood pressure. Qualifiers: Hypertension type: essential hypertension Qualified Code(s): I10 - Essential (primary) hypertension (3) Diabetes 1.5, managed as type 2 Current Visit: Yes Status: Chronic Assessment and plan: Controlled with sliding scale insulin. Continue to monitor blood sugars. Will adjust medications as necessary. (4) Chronic renal disease, stage 3, moderately decreased glomerular filtration rate between 30-59 mL/min/1.73 square meter Current Visit: Yes Status: Chronic Assessment and plan: Will monitor labs. Avoid nephrotoxic agents. (5) A-fib Current Visit: Yes Status: Chronic Assessment and plan: Rate and rhythm stable. continue xarelto. Qualifiers: Atrial fibrillation type: persistent Qualified Code(s): I48.1 - Persistent atrial fibrillation - Time Spent With Patient less than 15 minutes - Subjective Interval history: Participating well with therapy, ambulated 100' with walker with therapy. at bedside. Denies any new neurological deficits. Denies fever, chills, nausea vomiting, SOB or chest pain. maintaining O2 sats with O2 per NC at 1 liter. Maintaining appetite and hydration. - Constitutional Vitals: Temp Pulse Resp BP Pulse Ox 98.1 F 77 18 162/69 95 12/15/18 07:22 12/15/18 07:22 12/15/18 07:22 12/15/18 07:22 12/15/18 07:22 General appearance: Present: cooperative, A&O X 3, pleasant, answers questions appropriately. Absent: severe distress - Head Head exam: Present: atraumatic, normocephalic - Eye Eye exam: Present: PERRL, conjuntiva pink, sclera anicteric Pupils: Present: PERRL - Neck Neck exam general surgery: Present: supple, trachea midline. Absent: lymphadenopathy - Respiratory Respiratory exam: Present: CTAB. Absent: accessory muscle use, rales, rhonchi, wheezes - Cardiovascular Cardiovascular exam: Present: irregular rhythm, +S1, +S2. Absent: diastolic murmur, gallop, rubs, systolic murmur - GI/Abdominal GI/Abdominal exam: Present: normal bowel sounds, soft, no peritoneal signs. Absent: distended, tenderness - Extremities Exam Extremities exam: Present: warm, radial pulses palpable and symmetrical. Absent: calf tenderness, cyanotic, pedal edema Additional comments: trace nonpitting pedal edema. - Neurological Exam Neurological exam: Present: CN II-XII intact, oriented X3, no focal deficits. Absent: pronater drift, facial droop, speech deficit - Skin Skin exam: Present: dry, intact Internal Medicine: Result - Labs CBC & Chem 7: 12/14/18 06:17 12/14/18 06:17 - ABG Interpretation ABG results: PT/INR, D-dimer PT 23.6 Seconds (9.4-12.1) H 12/03/18 07:04 - VTE Documentation of Mechanical Device: Intermittent pneumatic compression device Consult Discharge Plan - Plan Referrals: Zachary Galdamez CNP [Primary Care Provider] -
[2018-12-15] MEDS: hydrALAZINE 10 MG TABLET PO PRN ×2 (12:22→20:40)
[2018-12-15] MEDS: *HR* Rivaroxaban 10 MG TABLET PO SCH (16:37)
[2018-12-16] MEDS: hydrALAZINE 10 MG TABLET PO PRN ×2 (06:00→17:32)
[2018-12-16] MEDS: *HR* Glimepiride 4 MG TABLET PO SCH (08:09)
[2018-12-16] MEDS: Lactobacillus 1 EACH CAP.SPRINK PO SCH ×2 (08:09→19:46)
[2018-12-16] MEDS: Cholecalciferol (D-3) 1,000 UNIT TABLET PO SCH (08:09)
[2018-12-16] MEDS: *HR* SitaGLIPtin 25 MG TABLET PO SCH (08:09)
[2018-12-16] MEDS: Furosemide 20 MG TABLET PO SCH ×2 (08:09→17:32)
[2018-12-16] MEDS: Cyanocobalamin (B-12) 1,000 MCG TABLET PO SCH (08:09)
[2018-12-16] MEDS: Magnesium Oxide 400 MG TABLET PO SCH (08:09)
[2018-12-16] MEDS: Multivit/Ca/Min/Fe/FA 1 TAB TABLET PO SCH (08:09)
[2018-12-16] MEDS: amLODIPine 5 MG TABLET PO SCH (08:09)
[2018-12-16] MEDS: Insulin LISPRO 300 UNITS/3 ML VIAL SQ SCH ×4 (08:10→21:07)
[2018-12-16] MEDS: Famotidine 20 MG TABLET PO SCH ×2 (08:10→19:46)
[2018-12-16] MEDS: Acetaminophen 325 MG TABLET PO PRN ×2 (08:10→17:32)
[2018-12-16] MEDS: Psyllium 1 PACKET POWD.PACK PO SCH ×2 (08:10→19:48)
--- NOTE | 2018-12-16 12:06 | Internal Med Progress Note ---
Addendum entered and electronically signed by Marques Tapia MD 12/16/18 12:39: I have personally performed a face to face evaluation on this patient. I have r eviewed and agree with the care plan. History and Exam by me shows: Patient is without complaint. He is pleased with his progress. He still has some sensory deficits in his left upper extremity but strength is nearly normal. Discussed care with other providers and/or nursing. Patient has no complaint of chest discomfort, dyspnea, orthopnea, palpitations, nausea or vomiting, constipation or diarrhea, other changes in bowel habits, difficulty with urination, rash or itching, or other new complaints, except as mentioned above. Review of systems is otherwise negative. Examination: (Except as mentioned above): General: In no apparent distress. Alert and oriented 3. Nondiaphoretic. Head: Atraumatic and normocephalic. Respiratory: No use of accessory muscles. Lungs are clear throughout. Normal airflow. Cardiovascular: Regular rate and rhythm without murmur appreciated. Abdomen: Bowel sounds are normal. No hepatosplenomegaly mass or tenderness appreciated. Obese and therefore difficult to palpate deeply. Patient is examined upright in chair and this also limits exam. Extremities: No cyanosis clubbing or edema. Skin: Warm and non-diaphoretic with no new lesions noted. Original Note: Date of Encounter: 12/16/18 Time of Encounter: 12:04 - Assessment and plan (1) CVA (cerebrovascular accident due to intracerebral hemorrhage) Current Visit: Yes Status: Acute Assessment and plan: making good improvement with thearpy. Continue PT, OT and ST. Will follow prog ress. No new neurological deficits. Follow up with neurology as scheduled. Qualifiers: Cerebral hemorrhage location: unspecified cerebral location Laterality: right Qualified Code(s): I61.9 - Nontraumatic intracerebral hemorrhage, unspecified (2) HTN (hypertension) Current Visit: Yes Status: Chronic Assessment and plan: Controlled with current medication. Continue clonidine as needed. Will monitor blood pressure. Qualifiers: Hypertension type: essential hypertension Qualified Code(s): I10 - Essential (primary) hypertension (3) Diabetes 1.5, managed as type 2 Current Visit: Yes Status: Chronic Assessment and plan: Controlled with sliding scale insulin. Continue to monitor blood sugars. Will adjust medications as necessary. (4) Chronic renal disease, stage 3, moderately decreased glomerular filtration rate between 30-59 mL/min/1.73 square meter Current Visit: Yes Status: Chronic Assessment and plan: Will monitor labs. Avoid nephrotoxic agents. (5) A-fib Current Visit: Yes Status: Chronic Assessment and plan: Rate and rhythm stable. continue xarelto. Qualifiers: Atrial fibrillation type: persistent Qualified Code(s): I48.1 - Persistent atrial fibrillation - Subjective Interval history: continues to participate well with therapy, ambulated 100' with walker with therapy. propels self in [facility]. at bedside. Denies any new neurological deficits. Denies fever, chills, nausea vomiting, SOB or chest pain. maintaining O2 sats with O2 per NC at 1 liter. Maintaining appetite and hydration. - Constitutional Vitals: Temp Pulse Resp BP Pulse Ox 98.1 F 68 16 127/53 95 12/16/18 07:15 12/16/18 07:15 12/16/18 07:15 12/16/18 11:00 12/16/18 07:15 General appearance: Present: cooperative, A&O X 3, pleasant, answers questions appropriately. Absent: severe distress - Head Head exam: Present: atraumatic, normocephalic - Eye Eye exam: Present: PERRL, conjuntiva pink, sclera anicteric Pupils: Present: PERRL - Neck Neck exam general surgery: Present: supple, trachea midline. Absent: lymphadenopathy - Respiratory Respiratory exam: Present: CTAB. Absent: accessory muscle use, rales, rhonchi, wheezes - Cardiovascular Cardiovascular exam: Present: irregular rhythm, +S1, +S2. Absent: diastolic murmur, gallop, rubs, systolic murmur - GI/Abdominal GI/Abdominal exam: Present: normal bowel sounds, soft, no peritoneal signs. Absent: distended, tenderness - Extremities Exam Extremities exam: Present: warm, radial pulses palpable and symmetrical. Absent: calf tenderness, cyanotic, pedal edema Additional comments: left sided weakness. - Neurological Exam Neurological exam: Present: CN II-XII intact, oriented X3, no focal deficits. Absent: pronater drift, facial droop, speech deficit - Skin Skin exam: Present: dry, intact Internal Medicine: Result - Labs CBC & Chem 7: 12/14/18 06:17 12/14/18 06:17 - ABG Interpretation ABG results: PT/INR, D-dimer PT 23.6 Seconds (9.4-12.1) H 12/03/18 07:04 - VTE Documentation of Mechanical Device: Intermittent pneumatic compression device Consult Discharge Plan - Plan Referrals: Zachary Galdamez CNP [Primary Care Provider] -
[2018-12-16] MEDS: CloNIDine Patch 0.1 MG PATCH (WEEKLY) TD SCH (12:46)
[2018-12-16] MEDS: *HR* Rivaroxaban 10 MG TABLET PO SCH (17:32)
[2018-12-17] MEDS: Insulin LISPRO 300 UNITS/3 ML VIAL SQ SCH ×4 (07:24→20:59)
[2018-12-17] MEDS: *HR* SitaGLIPtin 25 MG TABLET PO SCH (08:43)
[2018-12-17] MEDS: *HR* Glimepiride 4 MG TABLET PO SCH (08:43)
[2018-12-17] MEDS: Magnesium Oxide 400 MG TABLET PO SCH (08:43)
[2018-12-17] MEDS: Lactobacillus 1 EACH CAP.SPRINK PO SCH ×2 (08:43→20:57)
[2018-12-17] MEDS: Cyanocobalamin (B-12) 1,000 MCG TABLET PO SCH (08:43)
[2018-12-17] MEDS: amLODIPine 5 MG TABLET PO SCH (08:43)
[2018-12-17] MEDS: Famotidine 20 MG TABLET PO SCH ×2 (08:43→20:56)
[2018-12-17] MEDS: Multivit/Ca/Min/Fe/FA 1 TAB TABLET PO SCH (08:43)
[2018-12-17] MEDS: Furosemide 20 MG TABLET PO SCH ×2 (08:43→16:49)
[2018-12-17] MEDS: Cholecalciferol (D-3) 1,000 UNIT TABLET PO SCH (08:43)
[2018-12-17] MEDS: Psyllium 1 PACKET POWD.PACK PO SCH ×2 (08:44→20:59)
--- NOTE | 2018-12-17 09:12 | Internal Med Progress Note ---
Addendum entered and electronically signed by Marques Tapia MD 12/17/18 09:47: I have personally performed a face to face evaluation on this patient. I have r eviewed and agree with the care plan. History and Exam by me shows: Patient is without complaint. He is doing well and looking forward to attempting car transfers today. He is to go for home safety visit on 12/21/2018. Bowels are functioning normal for him. Discussed care with other providers and/or nursing. Patient has no complaint of chest discomfort, dyspnea, orthopnea, palpitations, nausea or vomiting, constipation or diarrhea, other changes in bowel habits, difficulty with urination, rash or itching, or other new complaints, except as mentioned above. Review of systems is otherwise negative. Examination: (Except as mentioned above): General: In no apparent distress. Alert and oriented 3. Nondiaphoretic. Head: Atraumatic and normocephalic. Respiratory: No use of accessory muscles. Lungs are clear throughout. Normal airflow. Cardiovascular: Irregularly irregular without murmur appreciated. Abdomen: Bowel sounds are normal. No hepatosplenomegaly mass or tenderness appreciated. Obese and therefore difficult to palpate deeply. Patient is examined upright in chair and this also limits exam. Extremities: No cyanosis clubbing or change in edema. Skin: Warm and non-diaphoretic with no new lesions noted. Original Note: Date of Encounter: 12/17/18 Time of Encounter: 09:10 - Assessment and plan (1) CVA (cerebrovascular accident due to intracerebral hemorrhage) Current Visit: Yes Status: Acute Assessment and plan: No acute issues. Patient continues with left hemiparesis with muscle strength 4+/5. Patient states that her continues to improve on [facility]. Planned home visit by patient on Friday. Patient continue with physical therapy and current plan of care. Qualifiers: Cerebral hemorrhage location: unspecified cerebral location Laterality: right Qualified Code(s): I61.9 - Nontraumatic intracerebral hemorrhage, unspecified (2) HTN (hypertension) Current Visit: Yes Status: Chronic Assessment and plan: Patient VS have improved. Continue on current meds Qualifiers: Hypertension type: essential hypertension Qualified Code(s): I10 - Essential (primary) hypertension (3) Diabetes 1.5, managed as type 2 Current Visit: Yes Status: Chronic Assessment and plan: No acute issues. Patient's glucose has been fairly well-controlled with most readings less than 170. Patient to continue with SS insuline and oral diabetic medications. (4) Chronic renal disease, stage 3, moderately decreased glomerular filtration rate between 30-59 mL/min/1.73 square meter Current Visit: Yes Status: Chronic Assessment and plan: No acute issues. Patient's current creatinine of 1.23. We will continue to monitor serial labs and continue on current medications (5) A-fib Current Visit: Yes Status: Chronic Assessment and plan: Patient's current ventricular rate is less than 100 controlled. He denies any chest discomforts palpitations. We will continue on current medications. Qualifiers: Atrial fibrillation type: persistent Qualified Code(s): I48.1 - Persistent atrial fibrillation (6) CHF (congestive heart failure) Current Visit: Yes Status: Chronic Assessment and plan: Patient with long history of CHF. No current issues. Patient denies any dyspnea at this time. Lungs are clear throughout upper [place] but diminished bases. Minimal edema. Patient is continue on current medications Qualifiers: Heart failure type: unspecified Heart failure chronicity: unspecified Qualified Code(s): I50.9 - Heart failure, unspecified - Time Spent With Patient less than 15 minutes - Subjective Interval history: Patient appears relaxed and currently denies any discomforts or shortness breath. Patient he continues to regain strength to his left arm and leg. - Constitutional Vitals: Temp Pulse Resp BP Pulse Ox 98.4 F 67 16 142/70 95 12/17/18 07:12 12/17/18 07:12 12/17/18 07:12 12/17/18 07:12 12/17/18 07:12 General appearance: Present: cooperative, A&O X 3, pleasant, answers questions appropriately. Absent: severe distress - Head Head exam: Present: atraumatic, normocephalic - Eye Eye exam: Present: PERRL, conjuntiva pink, sclera anicteric Pupils: Present: PERRL - Neck Neck exam general surgery: Present: supple, trachea midline. Absent: lymphadenopathy - Respiratory Respiratory exam: Present: decreased breath sounds, CTAB. Absent: accessory muscle use, rales, rhonchi, wheezes - Cardiovascular Cardiovascular exam: Present: RRR, +S1, +S2. Absent: diastolic murmur, gallop, rubs, systolic murmur - GI/Abdominal GI/Abdominal exam: Present: normal bowel sounds, soft, no peritoneal signs. Absent: distended, tenderness - Extremities Exam Extremities exam: Present: warm, radial pulses palpable and symmetrical. Absent: calf tenderness, cyanotic, pedal edema - Neurological Exam Neurological exam: Present: CN II-XII intact, oriented X3. Absent: pronater drift, facial droop, speech deficit Additional comments: Continues with left hemiparesis with +4/5 to LE. Noted slight increased weakness distally. RE 5/5 MS - Skin Skin exam: Present: dry, intact Internal Medicine: Result - Labs CBC & Chem 7: 12/14/18 06:17 12/14/18 06:17 - ABG Interpretation ABG results: PT/INR, D-dimer PT 23.6 Seconds (9.4-12.1) H 12/03/18 07:04 - VTE Documentation of Mechanical Device: Intermittent pneumatic compression device Consult Discharge Plan - Plan Referrals: Zachary Galdamez CNP [Primary Care Provider] -
[2018-12-17] MEDS: *HR* Rivaroxaban 10 MG TABLET PO SCH (16:49)
[2018-12-17] MEDS: hydrALAZINE 10 MG TABLET PO PRN (16:49)
[2018-12-17] MEDS: Acetaminophen 325 MG TABLET PO PRN (20:56)
[2018-12-18] MEDS: Insulin LISPRO 300 UNITS/3 ML VIAL SQ SCH ×4 (08:16→20:19)
[2018-12-18] MEDS: Multivit/Ca/Min/Fe/FA 1 TAB TABLET PO SCH (08:17)
[2018-12-18] MEDS: Famotidine 20 MG TABLET PO SCH ×2 (08:18→20:13)
[2018-12-18] MEDS: Magnesium Oxide 400 MG TABLET PO SCH (08:18)
[2018-12-18] MEDS: Furosemide 20 MG TABLET PO SCH ×2 (08:18→17:35)
[2018-12-18] MEDS: amLODIPine 5 MG TABLET PO SCH (08:19)
[2018-12-18] MEDS: Lactobacillus 1 EACH CAP.SPRINK PO SCH ×2 (08:19→20:13)
[2018-12-18] MEDS: Cyanocobalamin (B-12) 1,000 MCG TABLET PO SCH (08:19)
[2018-12-18] MEDS: Psyllium 1 PACKET POWD.PACK PO SCH ×3 (08:19→21:43)
[2018-12-18] MEDS: *HR* Glimepiride 4 MG TABLET PO SCH (08:19)
[2018-12-18] MEDS: Cholecalciferol (D-3) 1,000 UNIT TABLET PO SCH (08:19)
[2018-12-18] MEDS: *HR* SitaGLIPtin 25 MG TABLET PO SCH (08:19)
--- NOTE | 2018-12-18 10:25 | Internal Med Progress Note ---
Addendum entered and electronically signed by Marques Tapia MD 12/18/18 11:25: I have personally performed a face to face evaluation on this patient. I have r eviewed and agree with the care plan. History and Exam by me shows: Patient without complaint. He is constipated without a bowel movement in 3 days. We discussed the use of MiraLAX and mag citrate if no bowel movement. He is to undergo a home safety visit on Friday. Otherwise, he is looking for braun to discharge, soon. Discussed care with other providers and/or nursing. Patient has no complaint of chest discomfort, dyspnea, orthopnea, palpitations, nausea or vomiting, constipation or diarrhea, other changes in bowel habits, difficulty with urination, rash or itching, or other new complaints, except as mentioned above. Review of systems is otherwise negative. Examination: (Except as mentioned above): General: In no apparent distress. Alert and oriented 3. Nondiaphoretic. He is hard of hearing even with hearing aids in place. Head: Atraumatic and normocephalic. Respiratory: No use of accessory muscles. Lungs are clear throughout. Normal airflow. Cardiovascular: Regular rate and rhythm without murmur appreciated. Abdomen: Bowel sounds are normal. No hepatosplenomegaly mass or tenderness appreciated. Obese and therefore difficult to palpate deeply. Patient is exa mined upright in chair and this also limits exam. Extremities: No cyanosis clubbing or edema. Skin: Warm and non-diaphoretic with no new lesions noted. Neurological: Still with some clumsiness of left extremities. Good grasp strength and 4+/5 dorsal interossei, etc. Original Note: Date of Encounter: 12/18/18 Time of Encounter: 10:23 - Assessment and plan (1) CVA (cerebrovascular accident due to intracerebral hemorrhage) Current Visit: Yes Status: Acute Assessment and plan: No acute issues. Patient continues with left hemiparesis with muscle strength 4+/5. Patient states that her continues to improve on LE strenghth and has shown an improvement to his fine motor movement of LUE. Planned home visit by patient on Friday. Patient continue with physical therapy and current plan of care. Qualifiers: Cerebral hemorrhage location: unspecified cerebral location Laterality: right Qualified Code(s): I61.9 - Nontraumatic intracerebral hemorrhage, unspecified (2) HTN (hypertension) Current Visit: Yes Status: Chronic Assessment and plan: Patient VS have improved. Continue on current medications. Qualifiers: Hypertension type: essential hypertension Qualified Code(s): I10 - Essential (primary) hypertension (3) Diabetes 1.5, managed as type 2 Current Visit: Yes Status: Chronic Assessment and plan: No acute issues. Has shown improvedment in FS results. Patient's glucose has been fairly well-controlled with most readings less than 170. Patient to continue with SS insuline and oral diabetic medications. (4) Chronic renal disease, stage 3, moderately decreased glomerular filtration rate between 30-59 mL/min/1.73 square meter Current Visit: Yes Status: Chronic Assessment and plan: No acute issues. Patient's current creatinine of 1.23. We will continue to monitor serial labs and continue on current medications (5) A-fib Current Visit: Yes Status: Chronic Assessment and plan: Patient's current ventricular rate is less than 100 controlled. He denies any chest discomforts palpitations. We will continue on current medications. Qualifiers: Atrial fibrillation type: persistent Qualified Code(s): I48.1 - Persistent atrial fibrillation (6) CHF (congestive heart failure) Current Visit: Yes Status: Chronic Assessment and plan: Patient with long history of CHF. No current issues. Patient denies any dyspnea at this time. Lungs are clear throughout upper [place] but diminished bases. Minimal edema. Patient is continue on current medications Qualifiers: Heart failure type: unspecified Heart failure chronicity: unspecified Qualified Code(s): I50.9 - Heart failure, unspecified - Time Spent With Patient less than 15 minutes - Subjective Interval history: Patient appears relaxed and currently denies any discomforts or shortness br eath. Patient he continues to regain strength to his left arm and leg. Patient also has had an improvement of fine motor movement with left hand per OT - Constitutional Vitals: Temp Pulse Resp BP Pulse Ox 98.0 F 71 16 137/74 95 12/18/18 08:00 12/18/18 08:00 12/18/18 08:00 12/18/18 08:00 12/18/18 08:00 General appearance: Present: cooperative, A&O X 3, pleasant, answers questions appropriately. Absent: severe distress - Head Head exam: Present: atraumatic, normocephalic - Eye Eye exam: Present: PERRL, conjuntiva pink, sclera anicteric Pupils: Present: PERRL - Neck Neck exam general surgery: Present: supple, trachea midline. Absent: lymphadenopathy - Respiratory Respiratory exam: Present: decreased breath sounds, CTAB. Absent: accessory muscle use, rales, rhonchi, wheezes - Cardiovascular Cardiovascular exam: Present: RRR, +S1, +S2. Absent: diastolic murmur, gallop, rubs, systolic murmur - GI/Abdominal GI/Abdominal exam: Present: normal bowel sounds, soft, no peritoneal signs. Absent: distended, tenderness - Extremities Exam Extremities exam: Present: warm, radial pulses palpable and symmetrical. Absent: calf tenderness, cyanotic, pedal edema - Neurological Exam Neurological exam: Present: CN II-XII intact, oriented X3. Absent: pronater drift, facial droop, speech deficit Additional comments: Patient continues to have slight left hemiparesis with LE +4/5 and RE 5/5. Improving fine motor movement noted to the LUE - Skin Skin exam: Present: dry, intact Internal Medicine: Result - Labs CBC & Chem 7: 12/14/18 06:17 12/14/18 06:17 - ABG Interpretation ABG results: PT/INR, D-dimer PT 23.6 Seconds (9.4-12.1) H 12/03/18 07:04 - VTE Documentation of Mechanical Device: Intermittent pneumatic compression device Consult Discharge Plan - Plan Referrals: Zachary Galdamez CNP [Primary Care Provider] -
[2018-12-18] MEDS: hydrALAZINE 10 MG TABLET PO PRN ×2 (12:03→20:17)
[2018-12-18] MEDS: *HR* Rivaroxaban 10 MG TABLET PO SCH (17:35)
[2018-12-18] MEDS: Acetaminophen 325 MG TABLET PO PRN (17:37)
[2018-12-19] MEDS: Acetaminophen 325 MG TABLET PO PRN ×2 (05:35→21:02)
--- NOTE | 2018-12-19 08:14 | Internal Med Progress Note ---
Date of Encounter: 12/19/18 Time of Encounter: 08:11 - Assessment and plan (1) HTN (hypertension) Current Visit: Yes Status: Chronic Assessment and plan: Stable on meds no new change Continue to follow Qualifiers: Hypertension type: essential hypertension Qualified Code(s): I10 - Essential (primary) hypertension (2) Diabetes 1.5, managed as type 2 Current Visit: Yes Status: Chronic Assessment and plan: on oral meds and stable continue to monitor no new change noted one time low blood sugar will follow and adjust oral meds if needed (3) Chronic renal disease, stage 3, moderately decreased glomerular filtration rate between 30-59 mL/min/1.73 square meter Current Visit: Yes Status: Chronic Assessment and plan: stable no active issues at the present time (4) CVA (cerebrovascular accident due to intracerebral hemorrhage) Current Visit: Yes Status: Acute Assessment and plan: No new change Left weakness getting rehab and stable Qualifiers: Cerebral hemorrhage location: unspecified cerebral location Laterality: rig ht Qualified Code(s): I61.9 - Nontraumatic intracerebral hemorrhage, unsp ecified (5) A-fib Current Visit: Yes Status: Chronic Assessment and plan: Rate is stable On xeralto at the present time Qualifiers: Atrial fibrillation type: persistent Qualified Code(s): I48.1 - Persistent atrial fibrillation - Subjective Interval history: Cross coverage no acute issues getting his rehab . no fever or chill moving around in his wheel chair weakness on left side as before , no issues with swallowing no fever or chills overall feels better - Constitutional Vitals: Temp Pulse Resp BP Pulse Ox 98.5 F 83 16 129/60 95 12/19/18 07:28 12/19/18 07:28 12/19/18 07:28 12/19/18 07:28 12/19/18 07:28 General appearance: Present: cooperative, A&O X 3, pleasant, answers questions appropriately. Absent: severe distress - Head Head exam: Present: atraumatic - Eye Eye exam: Present: EOMI, PERRL. Absent: sclera anicteric - Neck Neck exam general surgery: Present: supple. Absent: tenderness, nuchal rigidity, thyromegaly - Respiratory Respiratory exam: Present: CTAB. Absent: rales, respiratory distress, rhonchi, stridor, wheezes, tachypnea - Cardiovascular Cardiovascular exam: Present: irregular rhythm, +S1, +S3. Absent: distant heart sounds, gallop, JVD, RRR - GI/Abdominal GI/Abdominal exam: Present: normal bowel sounds, soft. Absent: diminished bowel sounds, distended, firm, guarding, hepatomegaly, rebound, rigid - Extremities Exam Extremities exam: Absent: pedal edema, tenderness, warm - Neurological Exam Neurological exam: Present: CN II-XII intact, oriented X3. Absent: facial droop, speech deficit Additional comments: left upper and lower limb weakness able to move and walk with a walker Internal Medicine: Result - Labs CBC & Chem 7: 12/14/18 06:17 12/14/18 06:17 - ABG Interpretation ABG results: PT/INR, D-dimer PT 23.6 Seconds (9.4-12.1) H 12/03/18 07:04 - VTE Documentation of Mechanical Device: Intermittent pneumatic compression device Consult Discharge Plan - Plan Referrals: Zachary Galdamez CNP [Primary Care Provider] -
[2018-12-19] MEDS: amLODIPine 5 MG TABLET PO SCH (09:18)
[2018-12-19] MEDS: Cyanocobalamin (B-12) 1,000 MCG TABLET PO SCH (09:18)
[2018-12-19] MEDS: Magnesium Oxide 400 MG TABLET PO SCH (09:18)
[2018-12-19] MEDS: Famotidine 20 MG TABLET PO SCH ×2 (09:18→21:02)
[2018-12-19] MEDS: Lactobacillus 1 EACH CAP.SPRINK PO SCH ×2 (09:18→21:02)
[2018-12-19] MEDS: Psyllium 1 PACKET POWD.PACK PO SCH ×2 (09:19→21:03)
[2018-12-19] MEDS: *HR* SitaGLIPtin 25 MG TABLET PO SCH (09:19)
[2018-12-19] MEDS: Furosemide 20 MG TABLET PO SCH ×2 (09:19→17:30)
[2018-12-19] MEDS: *HR* Glimepiride 4 MG TABLET PO SCH (09:19)
[2018-12-19] MEDS: Multivit/Ca/Min/Fe/FA 1 TAB TABLET PO SCH (09:19)
[2018-12-19] MEDS: Cholecalciferol (D-3) 1,000 UNIT TABLET PO SCH (09:19)
[2018-12-19] MEDS: Insulin LISPRO 300 UNITS/3 ML VIAL SQ SCH ×4 (09:19→21:14)
[2018-12-19] MEDS: hydrALAZINE 10 MG TABLET PO PRN ×2 (17:31→23:57)
[2018-12-19] MEDS: *HR* Rivaroxaban 10 MG TABLET PO SCH (17:31)
[2018-12-20] MEDS: Acetaminophen 325 MG TABLET PO PRN ×3 (03:04→20:25)
[2018-12-20] MEDS: Insulin LISPRO 300 UNITS/3 ML VIAL SQ SCH ×4 (08:05→20:26)
--- NOTE | 2018-12-20 08:16 | Internal Med Progress Note ---
Date of Encounter: 12/20/18 Time of Encounter: 08:14 - Assessment and plan (1) HTN (hypertension) Current Visit: Yes Status: Chronic Assessment and plan: SBP slight high need followup and adjustment of meds if continues to be high Qualifiers: Hypertension type: essential hypertension Qualified Code(s): I10 - Essential (primary) hypertension (2) Diabetes 1.5, managed as type 2 Current Visit: Yes Status: Chronic Assessment and plan: on oral meds s table sliding scale as we'll followup and adjustment overall seems to be doing well (3) Chronic renal disease, stage 3, moderately decreased glomerular filtration rate between 30-59 mL/min/1.73 square meter Current Visit: Yes Status: Chronic Assessment and plan: stable continue to follow (4) CVA (cerebrovascular accident due to intracerebral hemorrhage) Current Visit: Yes Status: Acute Assessment and plan: Getting his rehab , weakness in his left arm and leg has improved a lot and he is able to manage most of his stuff still in wheel chair which he will use for some time now Qualifiers: Cerebral hemorrhage location: unspecified cerebral location Laterality: right Qualified Code(s): I61.9 - Nontraumatic intracerebral hemorrhage, unspec ified (5) A-fib Current Visit: Yes Status: Chronic Qualifiers: Atrial fibrillation type: persistent Qualified Code(s): I48.1 - Persistent atrial fibrillation - Subjective Interval history: Cross coverage no acute issues getting his rehab . doing very well and improving in his strength on left hand and leg - Constitutional Vitals: Temp Pulse Resp BP Pulse Ox 97.8 F 67 18 145/62 96 12/19/18 20:22 12/20/18 04:24 12/19/18 20:22 12/20/18 04:24 12/19/18 20:22 General appearance: Present: cooperative, A&O X 3, pleasant, answers questions appropriately. Absent: severe distress - Head Head exam: Present: atraumatic - Eye Eye exam: Present: EOMI, PERRL. Absent: conjuntiva pink, sclera anicteric Pupils: Present: PERRL - Neck Neck exam general surgery: Present: supple. Absent: tenderness, nuchal rigidity - Respiratory Respiratory exam: Present: CTAB. Absent: respiratory distress, rhonchi, stridor, wheezes - Cardiovascular Cardiovascular exam: Present: irregular rhythm, +S1, +S2, systolic murmur. Absent: distant heart sounds, gallop - GI/Abdominal GI/Abdominal exam: Present: normal bowel sounds. Absent: distended, guarding, rebound, rigid, tenderness - Extremities Exam Extremities exam: Absent: pedal edema, tenderness - Neurological Exam Neurological exam: Present: CN II-XII intact, oriented X3. Absent: facial droop, speech deficit Additional comments: left upper arm and leg weakness no new change Internal Medicine: Result - Labs CBC & Chem 7: 12/14/18 06:17 12/14/18 06:17 - ABG Interpretation ABG results: PT/INR, D-dimer PT 23.6 Seconds (9.4-12.1) H 12/03/18 07:04 - VTE Documentation of Mechanical Device: Intermittent pneumatic compression device Consult Discharge Plan - Plan Referrals: Zachary Galdamez CNP [Primary Care Provider] -
[2018-12-20] MEDS: Lactobacillus 1 EACH CAP.SPRINK PO SCH ×2 (09:41→20:25)
[2018-12-20] MEDS: Furosemide 20 MG TABLET PO SCH ×2 (09:41→17:37)
[2018-12-20] MEDS: hydrALAZINE 10 MG TABLET PO PRN ×2 (09:41→17:37)
[2018-12-20] MEDS: Magnesium Oxide 400 MG TABLET PO SCH (09:41)
[2018-12-20] MEDS: amLODIPine 5 MG TABLET PO SCH (09:41)
[2018-12-20] MEDS: *HR* SitaGLIPtin 25 MG TABLET PO SCH (09:42)
[2018-12-20] MEDS: Cyanocobalamin (B-12) 1,000 MCG TABLET PO SCH (09:42)
[2018-12-20] MEDS: Multivit/Ca/Min/Fe/FA 1 TAB TABLET PO SCH (09:42)
[2018-12-20] MEDS: *HR* Glimepiride 4 MG TABLET PO SCH (09:42)
[2018-12-20] MEDS: Cholecalciferol (D-3) 1,000 UNIT TABLET PO SCH (09:42)
[2018-12-20] MEDS: Famotidine 20 MG TABLET PO SCH ×2 (09:43→20:25)
[2018-12-20] MEDS: Psyllium 1 PACKET POWD.PACK PO SCH ×2 (09:43→20:26)
[2018-12-20] MEDS: *HR* Rivaroxaban 10 MG TABLET PO SCH (17:37)
[2018-12-21] MEDS: hydrALAZINE 10 MG TABLET PO PRN (05:08)
[2018-12-21] MEDS: Acetaminophen 325 MG TABLET PO PRN ×2 (07:04→17:46)
[2018-12-21] MEDS: Insulin LISPRO 300 UNITS/3 ML VIAL SQ SCH ×4 (07:55→20:30)
[2018-12-21] MEDS: Multivit/Ca/Min/Fe/FA 1 TAB TABLET PO SCH (08:37)
[2018-12-21] MEDS: Cyanocobalamin (B-12) 1,000 MCG TABLET PO SCH (08:37)
[2018-12-21] MEDS: Magnesium Oxide 400 MG TABLET PO SCH (08:42)
[2018-12-21] MEDS: amLODIPine 5 MG TABLET PO SCH (08:42)
[2018-12-21] MEDS: Furosemide 20 MG TABLET PO SCH ×2 (08:42→17:41)
[2018-12-21] MEDS: *HR* SitaGLIPtin 25 MG TABLET PO SCH (08:42)
[2018-12-21] MEDS: Famotidine 20 MG TABLET PO SCH ×2 (08:42→20:29)
[2018-12-21] MEDS: *HR* Glimepiride 4 MG TABLET PO SCH (08:42)
[2018-12-21] MEDS: Psyllium 1 PACKET POWD.PACK PO SCH ×2 (08:42→20:29)
[2018-12-21] MEDS: Lactobacillus 1 EACH CAP.SPRINK PO SCH ×2 (08:42→20:29)
[2018-12-21] MEDS: Cholecalciferol (D-3) 1,000 UNIT TABLET PO SCH (08:43)
--- NOTE | 2018-12-21 11:20 | Internal Med Progress Note ---
Addendum entered and electronically signed by Marques Tapia MD 12/21/18 12:44: I have personally performed a face to face evaluation on this patient. I have r eviewed and agree with the care plan. History and Exam by me shows: Patient seen by me at 08 15. He denies problems. Bowels and bladder are functioning well. He has home safety visit scheduled for 10:00 this morning. Discussed care with other providers and/or nursing. Patient has no complaint of chest discomfort, dyspnea, orthopnea, palpitations, nausea or vomiting, constipation or diarrhea, other changes in bowel habits, difficulty with urination, rash or itching, or other new complaints, except as mentioned above. Review of systems is otherwise negative. Examination: (Except as mentioned above): General: In no apparent distress. Alert and oriented 3. Nondiaphoretic. Head: Atraumatic and normocephalic. Respiratory: No use of accessory muscles. Lungs are clear throughout. Normal airflow. Cardiovascular: Regular rate and rhythm without murmur appreciated. Abdomen: Bowel sounds are normal. No hepatosplenomegaly mass or tenderness appreciated. Obese and therefore difficult to palpate deeply. Patient is examined upright in chair and this also limits exam. Extremities: No cyanosis clubbing or edema. Skin: Warm and non-diaphoretic with no new lesions noted. Plan is for an overnight visit, if he does well with home safety visit. Patient to continue. He continues to progress. Original Note: Date of Encounter: 12/21/18 Time of Encounter: 11:17 - Assessment and plan (1) CVA (cerebrovascular accident due to intracerebral hemorrhage) Current Visit: Yes Status: Acute Assessment and plan: making good improvement with therapy. home safety evaluation today. Continue PT, OT and ST. Will follow progress. No new neurological deficits. Follow up with neurology as scheduled. Qualifiers: Cerebral hemorrhage location: unspecified cerebral location Laterality: right Qualified Code(s): I61.9 - Nontraumatic intracerebral hemorrhage, unspecified (2) HTN (hypertension) Current Visit: Yes Status: Chronic Assessment and plan: Controlled with current medication. Continue clonidine as needed. Will monitor blood pressure. Qualifiers: Hypertension type: essential hypertension Qualified Code(s): I10 - Essential (primary) hypertension (3) Diabetes 1.5, managed as type 2 Current Visit: Yes Status: Chronic Assessment and plan: Controlled with sliding scale insulin. Continue to monitor blood sugars. Will adjust medications as necessary. (4) Chronic renal disease, stage 3, moderately decreased glomerular filtration rate between 30-59 mL/min/1.73 square meter Current Visit: Yes Status: Chronic Assessment and plan: Will monitor labs. Avoid nephrotoxic agents. (5) A-fib Current Visit: Yes Status: Chronic Assessment and plan: Rate and rhythm stable. continue xarelto. Qualifiers: Atrial fibrillation type: persistent Qualified Code(s): I48.1 - Persistent atrial fibrillation - Time Spent With Patient less than 15 minutes - Subjective Interval history: continues to participate well with therapy, leaving today with therapy and for a home safety evaluation. Denies any new neurological deficits. Denies fever, chills, nausea vomiting, SOB or chest pain. Maintaining appetite and hydration. - Constitutional Vitals: Temp Pulse Resp BP Pulse Ox 98.5 F 85 16 137/63 96 12/21/18 07:56 12/21/18 07:56 12/21/18 07:56 12/21/18 07:56 12/21/18 07:56 General appearance: Present: cooperative, A&O X 3, pleasant, answers questions appropriately. Absent: severe distress - Head Head exam: Present: atraumatic, normocephalic - Eye Eye exam: Present: PERRL, conjuntiva pink, sclera anicteric Pupils: Present: PERRL - Neck Neck exam general surgery: Present: supple, trachea midline. Absent: lymphadenopathy - Respiratory Respiratory exam: Present: CTAB. Absent: accessory muscle use, rales, rhonchi, wheezes - Cardiovascular Cardiovascular exam: Present: irregular rhythm, +S1, +S2. Absent: diastolic murmur, gallop, rubs, systolic murmur - GI/Abdominal GI/Abdominal exam: Present: normal bowel sounds, soft, no peritoneal signs. Absent: distended, tenderness - Extremities Exam Extremities exam: Present: warm, radial pulses palpable and symmetrical. Absent: calf tenderness, cyanotic, pedal edema Additional comments: left sided weakness. nonpitting pedal edema bilat. - Neurological Exam Neurological exam: Present: CN II-XII intact, oriented X3, no focal deficits. Absent: pronater drift, facial droop, speech deficit - Skin Skin exam: Present: dry, intact Internal Medicine: Result - Labs CBC & Chem 7: 12/14/18 06:17 12/14/18 06:17 - ABG Interpretation ABG results: PT/INR, D-dimer PT 23.6 Seconds (9.4-12.1) H 12/03/18 07:04 - VTE Documentation of Mechanical Device: Intermittent pneumatic compression device Consult Discharge Plan - Plan Referrals: Zachary Galdamez CNP [Primary Care Provider] -
[2018-12-21 16:34] LABS: Basophils # 0.1 K/mcL (0.0-0.2); Basophils % 0.9 %; Eosinophils # 0.2 K/mcL (0.0-0.6); Eosinophils % 3.4 %; Hematocrit 28.8 % (37.5-50.1); Hemoglobin 9.2 g/dL (12.9-16.9); Immature Granulocytes % 0.4 % (0-4); Lymphocytes % 19.5 %; Mean Corpuscular HGB Conc 31.9 g/dL (31.6-35.5); Mean Corpuscular Hemoglobin 28.8 pg (28.0-33.3); Monocytes # 0.3 K/mcL (0.0-1.3); Monocytes % 6.1 %; Neutrophils # 3.7 K/mcL (1.6-8.9); Platelet Count 202 K/mcL (140-400); Red Cell Distribution Width 14.2 % (11.5-14.5); Segmented Neutrophils % 69.7 %
[2018-12-21 16:46] LABS: Alanine Aminotransferase 17 Units/L (7-52); Albumin/Globulin Ratio 1.6 (1.1-2.2); Alkaline Phosphatase 82 Units/L (34-104); Aspartate Amino Transferase 18 Units/L (13-39); BUN/Creatinine Ratio 16 (6-26); Bilirubin,Total 0.7 mg/dL (0.3-1.0); Blood Urea Nitrogen 22 mg/dL (8-23); Calcium 9.5 mg/dL (8.6-10.3); Carbon Dioxide 27 mEq/L (23-29); Chloride 105 mEq/L (98-107); Globulin 2.5 g/dL (2.4-3.5); Glucose 215 mg/dL (70-105); Osmolality,Calculated 294 (280-300); Sodium 137 mEq/L (136-145); Total Protein 6.5 g/dL (6.4-8.9); eGFR For Non-African Americans 51 (> 60)
[2018-12-21] MEDS: *HR* Rivaroxaban 10 MG TABLET PO SCH (17:41)
[2018-12-22] MEDS: Insulin LISPRO 300 UNITS/3 ML VIAL SQ SCH ×4 (08:29→20:27)
[2018-12-22] MEDS: Psyllium 1 PACKET POWD.PACK PO SCH ×2 (08:42→20:27)
[2018-12-22] MEDS: Furosemide 20 MG TABLET PO SCH ×2 (08:43→16:39)
[2018-12-22] MEDS: Famotidine 20 MG TABLET PO SCH ×2 (08:43→20:26)
[2018-12-22] MEDS: Lactobacillus 1 EACH CAP.SPRINK PO SCH ×2 (08:43→20:27)
[2018-12-22] MEDS: Cholecalciferol (D-3) 1,000 UNIT TABLET PO SCH (08:43)
[2018-12-22] MEDS: Magnesium Oxide 400 MG TABLET PO SCH (08:43)
[2018-12-22] MEDS: *HR* SitaGLIPtin 25 MG TABLET PO SCH (08:43)
[2018-12-22] MEDS: Cyanocobalamin (B-12) 1,000 MCG TABLET PO SCH (08:43)
[2018-12-22] MEDS: Multivit/Ca/Min/Fe/FA 1 TAB TABLET PO SCH (08:43)
[2018-12-22] MEDS: Acetaminophen 325 MG TABLET PO PRN (08:43)
[2018-12-22] MEDS: *HR* Glimepiride 4 MG TABLET PO SCH (08:44)
[2018-12-22] MEDS: amLODIPine 5 MG TABLET PO SCH (08:44)
--- NOTE | 2018-12-22 10:28 | Internal Med Progress Note ---
Addendum entered and electronically signed by Marques Tapia MD 12/22/18 10:45: I have personally performed a face to face evaluation on this patient. I have r eviewed and agree with the care plan. History and Exam by me shows: Patient without complaint. He did well with his home safety visit, yesterday. He has no other problems and states bowels and bladder are working well. We discussed the possibility of an overnight visit, soon. Discussed care with other providers and/or nursing. Patient has no complaint of chest discomfort, dyspnea, orthopnea, palpitations, nausea or vomiting, constipation or diarrhea, other changes in bowel habits, di fficulty with urination, rash or itching, or other new complaints, except as mentioned above. Review of systems is otherwise negative. Examination: (Except as mentioned above): General: In no apparent distress. Alert and oriented 3. Nondiaphoretic. Head: Atraumatic and normocephalic. Respiratory: No use of accessory muscles. Lungs are clear throughout. Normal airflow. Cardiovascular: Regular rate and rhythm without murmur appreciated. Abdomen: Bowel sounds are normal. No hepatosplenomegaly mass or tenderness appreciated. Obese and therefore difficult to palpate deeply. Patient is ex amined upright in chair and this also limits exam. Extremities: No cyanosis clubbing or edema. Skin: Warm and non-diaphoretic with no new lesions noted. Neurologically, patient is continuing to improve strength at his left upper extremity. He still has mild clumsiness but this is improving, as well. Original Note: Date of Encounter: 12/22/18 Time of Encounter: 10:09 - Assessment and plan (1) CVA (cerebrovascular accident due to intracerebral hemorrhage) Current Visit: Yes Status: Acute Assessment and plan: making good improvement with therapy. home safety evaluation yesterday, states it went well. Continue PT, OT and ST. Will follow progress. No new neurological deficits. Follow up with neurology as scheduled. Qualifiers: Cerebral hemorrhage location: unspecified cerebral location Laterality: right Qualified Code(s): I61.9 - Nontraumatic intracerebral hemorrhage, unspecified (2) HTN (hypertension) Current Visit: Yes Status: Chronic Assessment and plan: Controlled with current medication. Continue clonidine as needed. Will monitor blood pressure. Qualifiers: Hypertension type: essential hypertension Qualified Code(s): I10 - E ssential (primary) hypertension (3) Diabetes 1.5, managed as type 2 Current Visit: Yes Status: Chronic Assessment and plan: Controlled with sliding scale insulin. Continue to monitor blood sugars. Will adjust medications as necessary. (4) Chronic renal disease, stage 3, moderately decreased glomerular filtration rate between 30-59 mL/min/1.73 square meter Current Visit: Yes Status: Chronic Assessment and plan: Will monitor labs. Avoid nephrotoxic agents. (5) A-fib Current Visit: Yes Status: Chronic Assessment and plan: Rate and rhythm stable. continue xarelto. Qualifiers: Atrial fibrillation type: persistent Qualified Code(s): I48.1 - Persistent atrial fibrillation - Time Spent With Patient less than 15 minutes - Subjective Interval history: participating well with therapy. up in [facility]. had home safety visit yesterday and states that it went very well. states he is fatigue this am and has been feeling this way. Denies any new neurological deficits. Denies fever, chills, nausea vomiting, SOB or chest pain. Maintaining appetite and hydration. - Constitutional Vitals: Temp Pulse Resp BP Pulse Ox 99.3 F 88 16 164/73 97 12/22/18 08:00 12/22/18 08:00 12/22/18 08:00 12/22/18 08:00 12/22/18 08:00 General appearance: Present: cooperative, A&O X 3, pleasant, answers questions appropriately. Absent: severe distress - Head Head exam: Present: atraumatic, normocephalic - Eye Eye exam: Present: PERRL, conjuntiva pink, sclera anicteric Pupils: Present: PERRL - Neck Neck exam general surgery: Present: supple, trachea midline. Absent: lymphadenopathy - Respiratory Respiratory exam: Present: CTAB. Absent: accessory muscle use, rales, rhonchi, wheezes - Cardiovascular Cardiovascular exam: Present: irregular rhythm, +S1, +S2. Absent: diastolic murmur, gallop, rubs, systolic murmur - GI/Abdominal GI/Abdominal exam: Present: normal bowel sounds, soft, no peritoneal signs. Absent: distended, tenderness - Extremities Exam Extremities exam: Present: warm, radial pulses palpable and symmetrical. Absent: calf tenderness, cyanotic, pedal edema Additional comments: left sided weakness - Neurological Exam Neurological exam: Present: CN II-XII intact, oriented X3, no focal deficits. Absent: pronater drift, facial droop, speech deficit - Skin Skin exam: Present: dry, intact Internal Medicine: Result - Labs CBC & Chem 7: 12/21/18 16:30 12/21/18 16:30 Labs: Short CBC 12/21/18 Range/Units 16:30 WBC 5.3 (4.3-11.1) K/mcL Hgb 9.2 L (12.9-16.9) g/dL Hct 28.8 L (37.5-50.1) % Plt Count 202 (140-400) K/mcL Neutrophils # 3.7 (1.6-8.9) K/mcL BMP 12/21/18 16:30 Sodium 137 Potassium 4.0 Chloride 105 Carbon Dioxide 27 BUN 22 Creatinine 1.36 H Glucose 215 H Calcium 9.5 Liver Function 12/21/18 Range/Units 16:30 Total Bilirubin 0.7 (0.3-1.0) mg/dL AST 18 (13-39) Units/L ALT 17 (7-52) Units/L Alkaline Phosphatase 82 (34-104) Units/L Albumin 4.0 (3.5-5.7) g/dL - ABG Interpretation ABG results: PT/INR, D-dimer PT 23.6 Seconds (9.4-12.1) H 12/03/18 07:04 - VTE Documentation of Mechanical Device: Intermittent pneumatic compression device Consult Discharge Plan - Plan Referrals: Zachary Galdamez CNP [Primary Care Provider] -
[2018-12-22] MEDS: *HR* Rivaroxaban 10 MG TABLET PO SCH (16:39)
[2018-12-23] MEDS: Cholecalciferol (D-3) 1,000 UNIT TABLET PO SCH (08:11)
[2018-12-23] MEDS: Famotidine 20 MG TABLET PO SCH ×2 (08:11→20:44)
[2018-12-23] MEDS: Lactobacillus 1 EACH CAP.SPRINK PO SCH ×2 (08:11→20:44)
[2018-12-23] MEDS: Magnesium Oxide 400 MG TABLET PO SCH (08:11)
[2018-12-23] MEDS: Furosemide 20 MG TABLET PO SCH ×2 (08:11→17:57)
[2018-12-23] MEDS: Cyanocobalamin (B-12) 1,000 MCG TABLET PO SCH (08:11)
[2018-12-23] MEDS: Insulin LISPRO 300 UNITS/3 ML VIAL SQ SCH ×4 (08:12→20:44)
[2018-12-23] MEDS: *HR* Glimepiride 4 MG TABLET PO SCH (08:12)
[2018-12-23] MEDS: Acetaminophen 325 MG TABLET PO PRN ×2 (08:12→17:59)
[2018-12-23] MEDS: Multivit/Ca/Min/Fe/FA 1 TAB TABLET PO SCH (08:12)
[2018-12-23] MEDS: amLODIPine 5 MG TABLET PO SCH (08:12)
[2018-12-23] MEDS: *HR* SitaGLIPtin 25 MG TABLET PO SCH (08:12)
[2018-12-23] MEDS: Psyllium 1 PACKET POWD.PACK PO SCH ×2 (08:13→20:56)
--- NOTE | 2018-12-23 09:49 | Internal Med Progress Note ---
Date of Encounter: 12/23/18 Time of Encounter: 09:47 - Assessment and plan (1) CVA (cerebrovascular accident due to intracerebral hemorrhage) Current Visit: Yes Status: Acute Assessment and plan: No acute issues. Patient continues with left hemiparesis with muscle strength 4+/5. Patient states that her continues to improve on LE strenghth and has shown an improvement to his fine motor movement of LUE. Patient with possible discharge in 2 weeks. Patient continue with physical therapy and current plan of care. Qualifiers: Cerebral hemorrhage location: unspecified cerebral location Laterality: right Qualified Code(s): I61.9 - Nontraumatic intracerebral hemorrhage, unspecified (2) HTN (hypertension) Current Visit: Yes Status: Chronic Assessment and plan: Patient VS have improved. Continue on current medications. Qualifiers: Hypertension type: essential hypertension Qualified Code(s): I10 - Essential (primary) hypertension (3) Diabetes 1.5, managed as type 2 Current Visit: Yes Status: Chronic Assessment and plan: No acute issues. Has shown improvedment in FS results. Patient's glucose has been fairly well-controlled with most readings less than 170. Patient to continue with SS insuline and oral diabetic medications. (4) Chronic renal disease, stage 3, moderately decreased glomerular filtration rate between 30-59 mL/min/1.73 square meter Current Visit: Yes Status: Chronic Assessment and plan: No acute issues. Patient's current creatinine of 1.36. We will continue to monitor serial labs and continue on current medications (5) A-fib Current Visit: Yes Status: Chronic Assessment and plan: Patient's current ventricular rate is less than 100 controlled. He denies any chest discomforts palpitations. We will continue on current medications. Qualifiers: Atrial fibrillation type: persistent Qualified Code(s): I48.1 - Persistent atrial fibrillation (6) CHF (congestive heart failure) Current Visit: Yes Status: Chronic Assessment and plan: Patient with long history of CHF. No current issues. Patient denies any dyspnea at this time. Lungs are clear throughout [place] but diminished bases. No pedal edema noted. Patient is continue on current medications Qualifiers: Heart failure type: unspecified Heart failure chronicity: unspecified Qu alified Code(s): I50.9 - Heart failure, unspecified - Time Spent With Patient less than 15 minutes - Subjective Interval history: Patient appears relaxed and currently denies any discomforts or shortness breath. Patient he continues to regain strength to his left arm and leg. Patient also has had an improvement of fine motor movement with left hand per OT - Constitutional Vitals: Temp Pulse Resp BP Pulse Ox 97.9 F 65 16 133/65 95 12/23/18 07:11 12/23/18 09:32 12/23/18 07:11 12/23/18 09:32 12/23/18 07:11 General appearance: Present: cooperative, A&O X 3, pleasant, answers questions appropriately. Absent: severe distress - Head Head exam: Present: atraumatic, normocephalic - Eye Eye exam: Present: PERRL, conjuntiva pink, sclera anicteric Pupils: Present: PERRL - Neck Neck exam general surgery: Present: supple, trachea midline. Absent: lymphadenopathy - Respiratory Respiratory exam: Present: decreased breath sounds, CTAB. Absent: accessory muscle use, rales, rhonchi, wheezes - Cardiovascular Cardiovascular exam: Present: RRR, +S1, +S2. Absent: diastolic murmur, gallop, rubs, systolic murmur - GI/Abdominal GI/Abdominal exam: Present: normal bowel sounds, soft, no peritoneal signs. Absent: distended, tenderness - Extremities Exam Extremities exam: Present: warm, radial pulses palpable and symmetrical. Abse nt: calf tenderness, cyanotic, pedal edema - Neurological Exam Neurological exam: Present: CN II-XII intact, oriented X3. Absent: pronater drift, facial droop, speech deficit Additional comments: Patient continues with slight left hemiparesis with left extremity muscle strength at 4+/5 and right extremity muscle strength at 5/5. Patient has had increased fine motor movement to right hand. - Skin Skin exam: Present: dry, intact Internal Medicine: Result - Labs CBC & Chem 7: 12/21/18 16:30 12/21/18 16:30 - ABG Interpretation ABG results: PT/INR, D-dimer PT 23.6 Seconds (9.4-12.1) H 12/03/18 07:04 - VTE Documentation of Mechanical Device: Intermittent pneumatic compression device Consult Discharge Plan - Plan Referrals: Zachary Galdamez CNP [Primary Care Provider] -
[2018-12-23] MEDS: CloNIDine Patch 0.1 MG PATCH (WEEKLY) TD SCH (12:50)
[2018-12-23] MEDS: *HR* Rivaroxaban 10 MG TABLET PO SCH (17:57)
[2018-12-23] MEDS: hydrALAZINE 10 MG TABLET PO PRN (20:44)
[2018-12-24] MEDS: Cyanocobalamin (B-12) 1,000 MCG TABLET PO SCH (08:52)
[2018-12-24] MEDS: Furosemide 20 MG TABLET PO SCH ×2 (08:52→17:00)
[2018-12-24] MEDS: *HR* Glimepiride 4 MG TABLET PO SCH (08:52)
[2018-12-24] MEDS: Famotidine 20 MG TABLET PO SCH ×2 (08:52→19:30)
[2018-12-24] MEDS: *HR* SitaGLIPtin 25 MG TABLET PO SCH (08:52)
[2018-12-24] MEDS: Lactobacillus 1 EACH CAP.SPRINK PO SCH ×2 (08:53→19:30)
[2018-12-24] MEDS: Magnesium Oxide 400 MG TABLET PO SCH (08:53)
[2018-12-24] MEDS: amLODIPine 5 MG TABLET PO SCH (08:53)
[2018-12-24] MEDS: Cholecalciferol (D-3) 1,000 UNIT TABLET PO SCH (08:53)
[2018-12-24] MEDS: Psyllium 1 PACKET POWD.PACK PO SCH ×2 (08:53→19:30)
[2018-12-24] MEDS: Insulin LISPRO 300 UNITS/3 ML VIAL SQ SCH ×4 (08:53→20:48)
[2018-12-24] MEDS: Multivit/Ca/Min/Fe/FA 1 TAB TABLET PO SCH (08:53)
--- NOTE | 2018-12-24 10:40 | Internal Med Progress Note ---
Date of Encounter: 12/24/18 Time of Encounter: 10:38 - Assessment and plan (1) CVA (cerebrovascular accident due to intracerebral hemorrhage) Current Visit: Yes Status: Acute Assessment and plan: No acute issues. Patient continues with left hemiparesis with muscle strength 4+/5. Patient states that her continues to improve on LE strenghth and has shown an improvement to his fine motor movement of LUE over the last few weeks. Patient with possible discharge in 2 weeks. Patient continue with physical therapy and current plan of care. Qualifiers: Cerebral hemorrhage location: unspecified cerebral location Laterality: right Qualified Code(s): I61.9 - Nontraumatic intracerebral hemorrhage, unspecified (2) HTN (hypertension) Current Visit: Yes Status: Chronic Assessment and plan: Patient VS have improved. Continue on current medications. Qualifiers: Hypertension type: essential hypertension Qualified Code(s): I10 - Essential (primary) hypertension (3) Diabetes 1.5, managed as type 2 Current Visit: Yes Status: Chronic Assessment and plan: No acute issues. Has shown improvedment in FS results. Patient's glucose has been fairly well-controlled with most readings less than 170. Patient to continue with SS insuline and oral diabetic medications. (4) Chronic renal disease, stage 3, moderately decreased glomerular filtration rate between 30-59 mL/min/1.73 square meter Current Visit: Yes Status: Chronic Assessment and plan: No acute issues. Patient's current creatinine of 1.36. We will continue to monitor serial labs and continue on current medications (5) A-fib Current Visit: Yes Status: Chronic Assessment and plan: Patient's current ventricular rate is less than 100 controlled. He denies any chest discomforts palpitations. We will continue on current medications. Qualifiers: Atrial fibrillation type: persistent Qualified Code(s): I48.1 - Persistent atrial fibrillation - Time Spent With Patient less than 15 minutes - Subjective Interval history: Patient appears relaxed and currently denies any discomforts or shortness breath. Patient he continues to regain strength to his left arm and leg. Patient also has had an improvement of fine motor movement with left hand per OT. Patient states that he is anxious to go home - Constitutional Vitals: Temp Pulse Resp BP Pulse Ox 98.4 F 57 16 135/67 96 12/24/18 06:00 12/24/18 06:00 12/24/18 06:00 12/24/18 06:00 12/24/18 06:00 General appearance: Present: cooperative, A&O X 3, pleasant, answers questions appropriately. Absent: severe distress - Head Head exam: Present: atraumatic, normocephalic - Eye Eye exam: Present: PERRL, conjuntiva pink, sclera anicteric Pupils: Present: PERRL - Neck Neck exam general surgery: Present: supple, trachea midline. Absent: l ymphadenopathy - Respiratory Respiratory exam: Present: decreased breath sounds, CTAB. Absent: accessory muscle use, rales, rhonchi, wheezes - Cardiovascular Cardiovascular exam: Present: RRR, +S1, +S2. Absent: diastolic murmur, gallop, rubs, systolic murmur - GI/Abdominal GI/Abdominal exam: Present: normal bowel sounds, soft, no peritoneal signs. Absent: distended, tenderness - Extremities Exam Extremities exam: Present: warm, radial pulses palpable and symmetrical. Absent: calf tenderness, cyanotic, pedal edema - Neurological Exam Neurological exam: Present: CN II-XII intact, oriented X3, no focal deficits. Absent: pronater drift, facial droop, speech deficit Additional comments: Continued slight left hemiparesis. LE +4/5 MS and RE with 5/5 MS. No other focal deficits noted on exam. - Skin Skin exam: Present: dry, intact Internal Medicine: Result - Labs CBC & Chem 7: 12/21/18 16:30 12/21/18 16:30 - ABG Interpretation ABG results: PT/INR, D-dimer PT 23.6 Seconds (9.4-12.1) H 12/03/18 07:04 - VTE Documentation of Mechanical Device: Intermittent pneumatic compression device Consult Discharge Plan - Plan Referrals: Zachary Galdamez, [employer] [Primary Care Provider] -
[2018-12-24] MEDS: *HR* Rivaroxaban 10 MG TABLET PO SCH (17:00)
[2018-12-24] MEDS: Acetaminophen 325 MG TABLET PO PRN (19:13)
[2018-12-25] MEDS: Acetaminophen 325 MG TABLET PO PRN ×2 (05:45→18:00)
[2018-12-25] MEDS: hydrALAZINE 10 MG TABLET PO PRN ×2 (05:48→18:00)
[2018-12-25] MEDS: *HR* Glimepiride 4 MG TABLET PO SCH (08:15)
[2018-12-25] MEDS: Famotidine 20 MG TABLET PO SCH ×2 (08:15→19:38)
[2018-12-25] MEDS: Magnesium Oxide 400 MG TABLET PO SCH (08:15)
[2018-12-25] MEDS: amLODIPine 5 MG TABLET PO SCH (08:15)
[2018-12-25] MEDS: Furosemide 20 MG TABLET PO SCH ×2 (08:15→17:59)
[2018-12-25] MEDS: Multivit/Ca/Min/Fe/FA 1 TAB TABLET PO SCH (08:15)
[2018-12-25] MEDS: Lactobacillus 1 EACH CAP.SPRINK PO SCH ×2 (08:15→19:38)
[2018-12-25] MEDS: *HR* SitaGLIPtin 25 MG TABLET PO SCH (08:15)
[2018-12-25] MEDS: Psyllium 1 PACKET POWD.PACK PO SCH ×2 (08:16→19:38)
[2018-12-25] MEDS: Cyanocobalamin (B-12) 1,000 MCG TABLET PO SCH (08:16)
[2018-12-25] MEDS: Cholecalciferol (D-3) 1,000 UNIT TABLET PO SCH (08:16)
[2018-12-25] MEDS: Insulin LISPRO 300 UNITS/3 ML VIAL SQ SCH ×4 (08:16→19:37)
--- NOTE | 2018-12-25 09:35 | Internal Med Progress Note ---
Date of Encounter: 12/25/18 Time of Encounter: 09:33 - Assessment and plan (1) CVA (cerebrovascular accident due to intracerebral hemorrhage) Current Visit: Yes Status: Acute Assessment and plan: making good improvement with therapy. Continue PT, OT and ST. Will follow progress. No new neurological deficits. Follow up with neurology as scheduled. Qualifiers: Cerebral hemorrhage location: unspecified cerebral location Laterality: right Qualified Code(s): I61.9 - Nontraumatic intracerebral hemorrhage, unspecified (2) HTN (hypertension) Current Visit: Yes Status: Chronic Assessment and plan: Controlled with current medication. Continue clonidine as needed. Will monitor blood pressure. Qualifiers: Hypertension type: essential hypertension Qualified Code(s): I10 - Essential (primary) hypertension (3) Diabetes 1.5, managed as type 2 Current Visit: Yes Status: Chronic Assessment and plan: Controlled with sliding scale insulin. Continue to monitor blood sugars. Will adjust medications as necessary. (4) Chronic renal disease, stage 3, moderately decreased glomerular filtration rate between 30-59 mL/min/1.73 square meter Current Visit: Yes Status: Chronic Assessment and plan: Will monitor labs. Avoid nephrotoxic agents. (5) A-fib Current Visit: Yes Status: Chronic Assessment and plan: Rate and rhythm stable. continue xarelto. Qualifiers: Atrial fibrillation type: persistent Qualified Code(s): I48.1 - Persistent atrial fibrillation - Time Spent With Patient less than 15 minutes - Subjective Interval history: participating well with therapy. up in [facility]. Denies any new neurological deficits. Denies fever, chills, nausea vomiting, SOB or chest pain. Maintaining appetite and hydration. Last bowel movement was last night. - Constitutional Vitals: Temp Pulse Resp BP Pulse Ox 98.6 F 78 16 149/56 96 12/25/18 06:52 12/25/18 06:52 12/25/18 06:52 12/25/18 06:52 12/25/18 06:52 General appearance: Present: cooperative, A&O X 3, pleasant, answers questions appropriately. Absent: severe distress Exam: Hard of hearing with hearing aids - Head Head exam: Present: atraumatic, normocephalic - Eye Eye exam: Present: PERRL, conjuntiva pink, sclera anicteric Pupils: Present: PERRL - Neck Neck exam general surgery: Present: supple, trachea midline. Absent: lymphadenopathy - Respiratory Respiratory exam: Present: CTAB. Absent: accessory muscle use, rales, rhonchi, wheezes - Cardiovascular Cardiovascular exam: Present: irregular rhythm, +S1, +S2. Absent: diastolic murmur, gallop, rubs, systolic murmur - GI/Abdominal GI/Abdominal exam: Present: normal bowel sounds, soft, no peritoneal signs. Absent: distended, tenderness - Extremities Exam Extremities exam: Present: warm, radial pulses palpable and symmetrical. Absent: calf tenderness, cyanotic, pedal edema Additional comments: Left-sided weakness - Neurological Exam Neurological exam: Present: CN II-XII intact, oriented X3, no focal deficits. Absent: pronater drift, facial droop, speech deficit - Skin Skin exam: Present: dry, intact Internal Medicine: Result - Labs CBC & Chem 7: 12/21/18 16:30 12/21/18 16:30 - ABG Interpretation ABG results: PT/INR, D-dimer PT 23.6 Seconds (9.4-12.1) H 12/03/18 07:04 - VTE Documentation of Mechanical Device: Intermittent pneumatic compression device Consult Discharge Plan - Plan Referrals: Zachary Galdamez CNP [Primary Care Provider] -
[2018-12-25] MEDS: *HR* Rivaroxaban 10 MG TABLET PO SCH (18:00)
[2018-12-26] MEDS: Acetaminophen 325 MG TABLET PO PRN ×3 (04:30→20:11)
[2018-12-26] MEDS: hydrALAZINE 10 MG TABLET PO PRN (04:30)
[2018-12-26] MEDS: Cholecalciferol (D-3) 1,000 UNIT TABLET PO SCH (08:20)
[2018-12-26] MEDS: amLODIPine 5 MG TABLET PO SCH (08:20)
[2018-12-26] MEDS: Lactobacillus 1 EACH CAP.SPRINK PO SCH ×2 (08:20→20:10)
[2018-12-26] MEDS: Multivit/Ca/Min/Fe/FA 1 TAB TABLET PO SCH (08:21)
[2018-12-26] MEDS: Magnesium Oxide 400 MG TABLET PO SCH (08:21)
[2018-12-26] MEDS: *HR* SitaGLIPtin 25 MG TABLET PO SCH (08:21)
[2018-12-26] MEDS: *HR* Glimepiride 4 MG TABLET PO SCH (08:21)
[2018-12-26] MEDS: Furosemide 20 MG TABLET PO SCH ×2 (08:21→17:00)
[2018-12-26] MEDS: Famotidine 20 MG TABLET PO SCH ×2 (08:22→20:11)
[2018-12-26] MEDS: Cyanocobalamin (B-12) 1,000 MCG TABLET PO SCH (08:22)
[2018-12-26] MEDS: Psyllium 1 PACKET POWD.PACK PO SCH ×2 (08:23→20:11)
[2018-12-26] MEDS: Insulin LISPRO 300 UNITS/3 ML VIAL SQ SCH ×4 (08:23→20:26)
--- NOTE | 2018-12-26 15:14 | Internal Med Progress Note ---
Date of Encounter: 12/27/18 Time of Encounter: 12:45 - Subjective Interval history: - Assessment and plan (1) CVA (cerebrovascular accident due to intracerebral hemorrhage) Current Visit: Yes Status: Acute Assessment and plan: Hemorrhagic [place] area Previous 4 strokes were ischemic. PT was taken off anti coagulant for duration of a month. Patient continues with left hemiparesis with muscle strength 4/5. Patient states that physical therapy has been progressing well. Patient's strength to his left side appears to have improved over the past week per therapy. No new issues. He is trying to wheel self in wheelchair with r arm. Patient is progressing well per therapy with no new weakness no head ache. Oriented x 3 Deconditioned and doing well in therapy. He is overall feeling much stronger, more alert more talkative Qualifiers: Cerebral hemorrhage location: unspecified cerebral location Laterality: right Qualified Code(s): I61.9 - Nontraumatic intracerebral hemorrhage, unspecified (2) HTN (hypertension) Current Visit: Yes Status: Chronic Assessment and plan: Patient has systolic 116-137. A bit too Low. This is current goal range 140 to 150 as he is post CVA will adjust his BP medications and evaluate patient's blood pressures for titration of medications Qualifiers: Hypertension type: essential hypertension Qualified Code(s): I10 - Essential (primary) hypertension (3) Diabetes 1.5, managed as type 2 Current Visit: Yes Status: Chronic Assessment and plan: Patient's glucose has been a few low readings. He is on AMARYL 4 mg and januvia 100mg - will reduce dose of januvia to 25 mg. continue amaryl the same will monitor to avoid possible hypoglycemia. Continue sliding scale coverage and evaluate patient's long-acting coverage for titration Does have hx b12 def (4) Chronic renal disease, stage 3, moderately decreased glomerular filtration rate between 30-59 mL/min/1.73 square meter Current Visit: Yes Status: Chronic Assessment and plan: No acute issues. Patient's current creatinine stable. We will continue to monitor serial labs and continue on current medications (5) A-fib Current Visit: Yes Status: Chronic Assessment and plan: Patient's current ventricular rate is less than 100 controlled. He denies any chest discomforts palpitations. We will continue on current medications. currently off blood thinner for hem cva Qualifiers: Atrial fibrillation type: persistent Qualified Code(s): I48.1 - Persistent atrial fibrillation (6) Hx Anemia Hb over 8 both B12 and IRON deficient no active bleed will repeat cbc has hx b12 Def taking b12 current level ok on oral will add Iron oral has hx of constipation so will add fiber and probiotic (7) hx hypothyroid on synthoid monitor TSH. (8) Intestinal malabsorption with low magnesium, low B12, low iron, low K. will DC the PPI as can exacerbate malabsorption. Will use Pepcid for GI protection added Vit D - Time Spent With Patient less than 15 minutes Interval history: Patient talkative , he is SUN'AQ. He is up in chair. Mood good. Pt is supportive. Patient states that he feels his strength on his left side has improved slightly. Pt participating in Rehab, says its a good work out. He is eating well. Care plans discussed with pt and Patient denies any acute neurological changes since his admission He is progressing very well EXAM General appearance: Present: fair skinned WM cooperative, A&O X 3, pleasant, very SUN'AQ , answers questions appropriately. good eye contact More energetic - Eye Eye exam: Present: PERRL, conjuntiva pink Pupils: Present: PERRL - Neck Neck exam general surgery: Present: supple, trachea midline. Absent: lymphadenopathy - Respiratory Respiratory exam: Present: CTAB. Absent: accessory muscle use, rales, rhonchi, wheezes - Cardiovascular Cardiovascular exam: Present: irregular , +S1, +S2. Absent: trace SM - GI/Abdominal GI/Abdominal exam: Present: normal bowel sounds, soft, no peritoneal signs. Ab sent: distended, tenderness - Extremities Exam Extremities exam: Present: warm, radial pulses palpable and symmetrical. Absent: calf tenderness, cyanotic, pedal edema - Neurological Exam Neurological exam: Present: CN II-XII intact, oriented X3. Absent: pronater drift, facial droop, speech deficit Additional comments: Patient continues to have left hemiparesis with his left extremities at 4/5 muscle strength in right extremities at 5/5 muscle strength - Skin Skin exam: Present: [place] skin is dry, intact - Constitutional Vitals: Temp Pulse Resp BP Pulse Ox 99.0 F 65 16 156/80 96 12/26/18 11:56 12/26/18 11:56 12/26/18 11:56 12/26/18 11:56 12/26/18 11:56 General appearance: Absent: severe distress Internal Medicine: Result - Labs CBC & Chem 7: 12/21/18 16:30 12/21/18 16:30 - ABG Interpretation ABG results: PT/INR, D-dimer PT 23.6 Seconds (9.4-12.1) H 12/03/18 07:04 - VTE Documentation of Mechanical Device: Intermittent pneumatic compression device Consult Discharge Plan - Plan Referrals: Zachary Galdamez CNP [Primary Care Provider] -
[2018-12-26] MEDS: *HR* Rivaroxaban 10 MG TABLET PO SCH (17:00)
[2018-12-27] MEDS: Furosemide 20 MG TABLET PO SCH ×2 (09:10→16:37)
[2018-12-27] MEDS: Cholecalciferol (D-3) 1,000 UNIT TABLET PO SCH (09:10)
[2018-12-27] MEDS: Lactobacillus 1 EACH CAP.SPRINK PO SCH ×2 (09:11→20:06)
[2018-12-27] MEDS: amLODIPine 5 MG TABLET PO SCH (09:11)
[2018-12-27] MEDS: Famotidine 20 MG TABLET PO SCH ×2 (09:11→20:06)
[2018-12-27] MEDS: Multivit/Ca/Min/Fe/FA 1 TAB TABLET PO SCH (09:11)
[2018-12-27] MEDS: *HR* Glimepiride 4 MG TABLET PO SCH (09:11)
[2018-12-27] MEDS: *HR* SitaGLIPtin 100 MG TABLET PO SCH (09:11)
[2018-12-27] MEDS: Magnesium Oxide 400 MG TABLET PO SCH (09:11)
[2018-12-27] MEDS: Insulin LISPRO 300 UNITS/3 ML VIAL SQ SCH ×4 (09:12→21:13)
[2018-12-27] MEDS: Psyllium 1 PACKET POWD.PACK PO SCH ×2 (09:12→20:10)
[2018-12-27] MEDS: Cyanocobalamin (B-12) 1,000 MCG TABLET PO SCH (09:12)
--- NOTE | 2018-12-27 14:14 | Internal Med Progress Note ---
Date of Encounter: 12/27/18 Time of Encounter: 02:30 - Subjective Interval history: - Assessment and plan (1) CVA (cerebrovascular accident due to intracerebral hemorrhage) Current Visit: Yes Status: Acute Assessment and plan: Hemorrhagic pontine area Previous 4 strokes were ischemic. PT was taken off anti coagulant for duration of a month. Now on xarelto with no problems Patient continues with left hemiparesis with muscle strength 4/5. Patient states that physical therapy has been progressing well. Patient's strength to his left side appears to have improved over the past week per therapy. No new issues. He is trying to wheel self in wheelchair with r arm. Patient is progressing well per therapy with no new weakness no head ache. Oriented x 3 Deconditioned and doing well in therapy. He is overall feeling much stronger, more alert more talkative Qualifiers: Cerebral hemorrhage location: unspecified cerebral location Laterality: right Qualified Code(s): I61.9 - Nontraumatic intracerebral hemorrhage, unspecified (2) HTN (hypertension) Current Visit: Yes Status: Chronic Assessment and plan: Patient has systolic 116-137. A bit too Low. This is current goal range 140 to 150 as he is post CVA will adjust his BP medications and evaluate patient's blood pressures for titration of medications Qualifiers: Hypertension type: essential hypertension Qualified Code(s): I10 - Essential (primary) hypertension (3) Diabetes 1.5, managed as type 2 Current Visit: Yes Status: Chronic Assessment and plan: Patient's glucose has been a few low readings. He is on AMARYL 4 mg and januvia 100mg - will reduce dose of januvia to 25 mg. continue amaryl the same will monitor to avoid possible hypoglycemia. Continue sliding scale coverage and evaluate patient's long-acting coverage for titration Does have hx b12 def (4) Chronic renal disease, stage 3, moderately decreased glomerular filtration rate between 30-59 mL/min/1.73 square meter Current Visit: Yes Status: Chronic Assessment and plan: No acute issues. Patient's current creatinine stable. We will continue to monitor serial labs and continue on current medications (5) A-fib Current Visit: Yes Status: Chronic Assessment and plan: Patient's current ventricular rate is less than 100 controlled. He denies any chest discomforts palpitations. We will continue on current medications. currently off blood thinner for hem cva Qualifiers: Atrial fibrillation type: persistent Qualified Code(s): I48.1 - Persistent atrial fibrillation (6) Hx Anemia Hb over 8 both B12 and IRON deficient no active bleed will repeat cbc has hx b12 Def taking b12 current level ok on oral will add Iron oral has hx of constipation so will add fiber and probiotic (7) hx hypothyroid on synthoid monitor TSH. (8) Intestinal malabsorption with low magnesium, low B12, low iron, low K. will DC the PPI as can exacerbate malabsorption. Will use Pepcid for GI protection added Vit D - Time Spent With Patient less than 15 minutes Interval history: Patient talkative , he is [place]. He is up in chair. Mood good. Pt is supportive. Patient states that he feels his strength on his left side has improved slightly. Pt participating in Rehab, says its a good work out. He is eating well. Care plans discussed with pt and Patient denies any acute neurological changes since his admission He is progressing very well EXAM General appearance: Present: fair skinned WM cooperative, A&O X 3, pleasant, very [place] , answers questions appropriately. good eye contact More energetic - Eye Eye exam: Present: PERRL, conjuntiva pink Pupils: Present: PERRL - Neck Neck exam general surgery: Present: supple, trachea midline. Absent: lymphadenopathy - Respiratory Respiratory exam: Present: CTAB. Absent: accessory muscle use, rales, rhonchi, wheezes - Cardiovascular Cardiovascular exam: Present: irregular , +S1, +S2. Absent: trace SM - GI/Abdominal GI/Abdominal exam: Present: normal bowel sounds, soft, no peritoneal signs. Absent: distended, tenderness - Extremities Exam Extremities exam: Present: warm, radial pulses palpable and symmetrical. Absent: calf tenderness, cyanotic, pedal edema - Neurological Exam Neurological exam: Present: CN II-XII intact, oriented X3. Absent: pronater drift, facial droop, speech deficit Additional comments: Patient continues to have left hemiparesis with his left extremities at 4/5 muscle strength in right extremities at 5/5 muscle strength - Skin Skin exam: Present: bal[place] skin is dry, intact - Constitutional Vitals: Temp Pulse Resp BP Pulse Ox 98.7 F 69 16 175/63 95 12/27/18 12:44 12/27/18 12:44 12/27/18 12:44 12/27/18 12:44 12/27/18 08:32 General appearance: Absent: severe distress Internal Medicine: Result - Labs CBC & Chem 7: 12/21/18 16:30 12/21/18 16:30 - ABG Interpretation ABG results: PT/INR, D-dimer PT 23.6 Seconds (9.4-12.1) H 12/03/18 07:04 - VTE Documentation of Mechanical Device: Intermittent pneumatic compression device Consult Discharge Plan - Plan Referrals: Zachary Galdamez CNP [Primary Care Provider] -
[2018-12-27] MEDS: *HR* Rivaroxaban 10 MG TABLET PO SCH (16:36)
[2018-12-27] MEDS: Acetaminophen 325 MG TABLET PO PRN (20:07)
[2018-12-28] MEDS: Acetaminophen 325 MG TABLET PO PRN ×3 (02:46→20:45)
[2018-12-28 07:41] LABS: Basophils # 0.1 K/mcL (0.0-0.2); Basophils % 1.3 %; Eosinophils # 0.2 K/mcL (0.0-0.6); Eosinophils % 3.4 %; Hematocrit 27.4 % (37.5-50.1); Immature Granulocytes % 0.2 % (0-4); Lymphocytes # 1.5 K/mcL (0.6-4.6); Lymphocytes % 27.9 %; Mean Corpuscular HGB Conc 32.8 g/dL (31.6-35.5); Mean Corpuscular Hemoglobin 28.9 pg (28.0-33.3); Mean Corpuscular Volume 88.1 fL (83.0-100.0); Mean Platelet Volume 10.5 fL (9.4-12.4); Monocytes # 0.4 K/mcL (0.0-1.3); Monocytes % 6.8 %; Neutrophils # 3.2 K/mcL (1.6-8.9); Platelet Count 178 K/mcL (140-400); Red Blood Count 3.11 M/mcL (4.19-5.50); Red Cell Distribution Width 14.3 % (11.5-14.5); Segmented Neutrophils % 60.4 %
[2018-12-28] MEDS: Insulin LISPRO 300 UNITS/3 ML VIAL SQ SCH ×4 (07:48→23:10)
[2018-12-28] MEDS: Famotidine 20 MG TABLET PO SCH ×2 (08:13→20:42)
[2018-12-28] MEDS: *HR* SitaGLIPtin 100 MG TABLET PO SCH (08:13)
[2018-12-28] MEDS: Lactobacillus 1 EACH CAP.SPRINK PO SCH ×2 (08:13→20:41)
[2018-12-28] MEDS: Furosemide 20 MG TABLET PO SCH ×2 (08:13→17:10)
[2018-12-28] MEDS: Magnesium Oxide 400 MG TABLET PO SCH (08:13)
[2018-12-28] MEDS: Multivit/Ca/Min/Fe/FA 1 TAB TABLET PO SCH (08:13)
[2018-12-28] MEDS: Psyllium 1 PACKET POWD.PACK PO SCH ×2 (08:13→20:42)
[2018-12-28] MEDS: Cyanocobalamin (B-12) 1,000 MCG TABLET PO SCH (08:14)
[2018-12-28] MEDS: *HR* Glimepiride 4 MG TABLET PO SCH (08:14)
[2018-12-28] MEDS: Cholecalciferol (D-3) 1,000 UNIT TABLET PO SCH (08:14)
[2018-12-28] MEDS: amLODIPine 5 MG TABLET PO SCH (08:14)
[2018-12-28 08:25] LABS: BUN/Creatinine Ratio 21 (6-26); Blood Urea Nitrogen 25 mg/dL (8-23); Carbon Dioxide 24 mEq/L (23-29); Chloride 107 mEq/L (98-107); Glucose 67 mg/dL (70-105); Osmolality,Calculated 291 (280-300); Potassium 3.8 mEq/L (3.5-5.1); Sodium 139 mEq/L (136-145); eGFR For Non-African Americans 59 (> 60)
--- NOTE | 2018-12-28 10:45 | Internal Med Progress Note ---
Date of Encounter: 12/28/18 Time of Encounter: 10:43 - Assessment and plan (1) CVA (cerebrovascular accident due to intracerebral hemorrhage) Current Visit: Yes Status: Acute Assessment and plan: making good improvement with therapy. Continue PT, OT and ST. Will follow progress. No new neurological deficits. Follow up with neurology as scheduled. Qualifiers: Cerebral hemorrhage location: unspecified cerebral location Laterality: right Qualified Code(s): I61.9 - Nontraumatic intracerebral hemorrhage, unspecified (2) HTN (hypertension) Current Visit: Yes Status: Chronic Assessment and plan: Controlled with current medication. Continue clonidine as needed. Will monitor blood pressure. Qualifiers: Hypertension type: essential hypertension Qualified Code(s): I10 - Essential (primary) hypertension (3) Diabetes 1.5, managed as type 2 Current Visit: Yes Status: Chronic Assessment and plan: Controlled with sliding scale insulin. Continue to monitor blood sugars. Will adjust medications as necessary. (4) Chronic renal disease, stage 3, moderately decreased glomerular filtration rate between 30-59 mL/min/1.73 square meter Current Visit: Yes Status: Chronic Assessment and plan: Will monitor labs. Avoid nephrotoxic agents. (5) A-fib Current Visit: Yes Status: Chronic Assessment and plan: Rate and rhythm stable. continue xarelto. Qualifiers: Atrial fibrillation type: persistent Qualified Code(s): I48.1 - Persistent atrial fibrillation - Time Spent With Patient less than 15 minutes - Subjective Interval history: participating well with therapy. up in [facility]. showered with OT this am. Denies any new neurological deficits. Denies fever, chills, nausea vomiting, SOB or chest pain. Maintaining appetite and hydration. Last bowel movement was last night. - Constitutional Vitals: Temp Pulse Resp BP Pulse Ox 98.2 F 78 15 150/74 93 12/28/18 07:56 12/28/18 07:56 12/28/18 07:56 12/28/18 07:56 12/28/18 07:56 General appearance: Present: cooperative, A&O X 3, pleasant, no acute distress, obese, answers questions appropriately. Absent: severe distress - Head Head exam: Present: atraumatic, normocephalic - Eye Eye exam: Present: PERRL, conjuntiva pink, sclera anicteric Pupils: Present: PERRL - Neck Neck exam general surgery: Present: supple, trachea midline. Absent: lymphadenopathy - Respiratory Respiratory exam: Present: CTAB. Absent: accessory muscle use, rales, rhonchi, wheezes - Cardiovascular Cardiovascular exam: Present: RRR, +S1, +S2. Absent: diastolic murmur, gallop, rubs, systolic murmur - GI/Abdominal GI/Abdominal exam: Present: normal bowel sounds, soft, no peritoneal signs. Abs ent: distended, tenderness - Extremities Exam Extremities exam: Present: pedal edema, warm, radial pulses palpable and symmetrical. Absent: calf tenderness, cyanotic - Neurological Exam Neurological exam: Present: CN II-XII intact, oriented X3, no focal deficits. Absent: pronater drift, facial droop, speech deficit - Skin Skin exam: Present: dry, intact Internal Medicine: Result - Labs CBC & Chem 7: 12/28/18 06:38 12/28/18 06:38 Labs: Short CBC 12/28/18 Range/Units 06:38 WBC 5.3 (4.3-11.1) K/mcL Hgb 9.0 L (12.9-16.9) g/dL Hct 27.4 L (37.5-50.1) % Plt Count 178 (140-400) K/mcL Neutrophils # 3.2 (1.6-8.9) K/mcL BMP 12/28/18 06:38 Sodium 139 Potassium 3.8 Chloride 107 Carbon Dioxide 24 BUN 25 H Creatinine 1.20 Glucose 67 L Calcium 9.0 - ABG Interpretation ABG results: PT/INR, D-dimer PT 23.6 Seconds (9.4-12.1) H 12/03/18 07:04 - VTE Documentation of Mechanical Device: Intermittent pneumatic compression device Consult Discharge Plan - Plan Referrals: Zachary Galdamez, DIE CUTTER OPERATOR [Primary Care Provider] -
[2018-12-28] MEDS: *HR* Rivaroxaban 10 MG TABLET PO SCH (17:10)
[2018-12-29] MEDS: Insulin LISPRO 300 UNITS/3 ML VIAL SQ SCH ×4 (07:37→19:12)
[2018-12-29] MEDS: Furosemide 20 MG TABLET PO SCH ×2 (08:41→19:11)
[2018-12-29] MEDS: Lactobacillus 1 EACH CAP.SPRINK PO SCH ×2 (08:42→19:12)
[2018-12-29] MEDS: Multivit/Ca/Min/Fe/FA 1 TAB TABLET PO SCH (08:42)
[2018-12-29] MEDS: Famotidine 20 MG TABLET PO SCH ×2 (08:42→19:12)
[2018-12-29] MEDS: *HR* Glimepiride 4 MG TABLET PO SCH (08:42)
[2018-12-29] MEDS: amLODIPine 5 MG TABLET PO SCH (08:42)
[2018-12-29] MEDS: *HR* SitaGLIPtin 100 MG TABLET PO SCH (08:42)
[2018-12-29] MEDS: Cholecalciferol (D-3) 1,000 UNIT TABLET PO SCH (08:43)
[2018-12-29] MEDS: Magnesium Oxide 400 MG TABLET PO SCH (08:43)
[2018-12-29] MEDS: Cyanocobalamin (B-12) 1,000 MCG TABLET PO SCH (08:43)
[2018-12-29] MEDS: Psyllium 1 PACKET POWD.PACK PO SCH ×2 (08:44→19:12)
--- NOTE | 2018-12-29 08:46 | Internal Med Progress Note ---
Date of Encounter: 12/29/18 Time of Encounter: 08:43 - Assessment and plan (1) CVA (cerebrovascular accident due to intracerebral hemorrhage) Current Visit: Yes Status: Acute Assessment and plan: making good improvement with therapy. Continue PT, OT and ST. Will follow progress. No new neurological deficits. Follow up with neurology as scheduled. Qualifiers: Cerebral hemorrhage location: unspecified cerebral location Laterality: right Qualified Code(s): I61.9 - Nontraumatic intracerebral hemorrhage, unspecified (2) HTN (hypertension) Current Visit: Yes Status: Chronic Assessment and plan: Controlled with current medication. Continue clonidine as needed. Will monitor blood pressure. Qualifiers: Hypertension type: essential hypertension Qualified Code(s): I10 - Essential (primary) hypertension (3) Diabetes 1.5, managed as type 2 Current Visit: Yes Status: Chronic Assessment and plan: Controlled with sliding scale insulin. Continue to monitor blood sugars. Will adjust medications as necessary. (4) Chronic renal disease, stage 3, moderately decreased glomerular filtration rate between 30-59 mL/min/1.73 square meter Current Visit: Yes Status: Chronic Assessment and plan: Will monitor labs. Avoid nephrotoxic agents. (5) A-fib Current Visit: Yes Status: Chronic Assessment and plan: Rate and rhythm stable. continue xarelto. Qualifiers: Atrial fibrillation type: persistent Qualified Code(s): I48.1 - Persistent atrial fibrillation - Subjective Interval history: participating well with therapy. ambulating 150ft with CGA. up in [facility]. planning for overnight at home with enrike maddox. discharge planned for 01/01. Denies any new neurological deficits. Denies fever, chills, nausea vomiting, SOB or chest pain. Maintaining appetite and hydration. - Constitutional Vitals: Temp Pulse Resp BP Pulse Ox 98.8 F 64 16 143/80 96 12/29/18 07:32 12/29/18 07:32 12/29/18 07:32 12/29/18 07:32 12/29/18 07:32 General appearance: Present: cooperative, A&O X 3, pleasant, no acute distress, obese, answers questions appropriately. Absent: severe distress - Head Head exam: Present: atraumatic, normocephalic - Eye Eye exam: Present: PERRL, conjuntiva pink, sclera anicteric Pupils: Present: PERRL - Neck Neck exam general surgery: Present: supple, trachea midline. Absent: lymphadenopathy - Respiratory Respiratory exam: Present: CTAB. Absent: accessory muscle use, rales, rhonchi, wheezes - Cardiovascular Cardiovascular exam: Present: irregular rhythm, +S1, +S2. Absent: diastolic murmur, gallop, rubs, systolic murmur - GI/Abdominal GI/Abdominal exam: Present: normal bowel sounds, soft, no peritoneal signs. Absent: distended, tenderness - Extremities Exam Extremities exam: Present: warm, radial pulses palpable and symmetrical. Absent: calf tenderness, cyanotic, pedal edema Additional comments: nonpitting pedal edema, bilat. - Neurological Exam Neurological exam: Present: CN II-XII intact, oriented X3, no focal deficits. Absent: pronater drift, facial droop, speech deficit - Skin Skin exam: Present: dry, intact Internal Medicine: Result - Labs CBC & Chem 7: 12/28/18 06:38 12/28/18 06:38 - ABG Interpretation ABG results: PT/INR, D-dimer PT 23.6 Seconds (9.4-12.1) H 12/03/18 07:04 - VTE Documentation of Mechanical Device: Intermittent pneumatic compression device Consult Discharge Plan - Plan Referrals: Zachary Galdamez CNP [Primary Care Provider] -
[2018-12-29] MEDS: *HR* Rivaroxaban 10 MG TABLET PO SCH (19:12)
[2018-12-30] MEDS: Lactobacillus 1 EACH CAP.SPRINK PO SCH ×2 (07:48→20:29)
[2018-12-30] MEDS: Furosemide 20 MG TABLET PO SCH ×2 (07:48→17:13)
[2018-12-30] MEDS: *HR* Glimepiride 4 MG TABLET PO SCH (07:48)
[2018-12-30] MEDS: Insulin LISPRO 300 UNITS/3 ML VIAL SQ SCH ×4 (07:48→20:18)
[2018-12-30] MEDS: Cyanocobalamin (B-12) 1,000 MCG TABLET PO SCH (07:49)
[2018-12-30] MEDS: Psyllium 1 PACKET POWD.PACK PO SCH ×2 (07:49→20:30)
[2018-12-30] MEDS: Magnesium Oxide 400 MG TABLET PO SCH (07:49)
[2018-12-30] MEDS: Cholecalciferol (D-3) 1,000 UNIT TABLET PO SCH (07:49)
[2018-12-30] MEDS: amLODIPine 5 MG TABLET PO SCH (07:49)
[2018-12-30] MEDS: Multivit/Ca/Min/Fe/FA 1 TAB TABLET PO SCH (07:49)
[2018-12-30] MEDS: Famotidine 20 MG TABLET PO SCH ×2 (07:49→20:29)
[2018-12-30] MEDS: *HR* SitaGLIPtin 100 MG TABLET PO SCH (07:49)
[2018-12-30] MEDS: Acetaminophen 325 MG TABLET PO PRN ×2 (13:21→20:29)
[2018-12-30] MEDS: CloNIDine Patch 0.1 MG PATCH (WEEKLY) TD SCH (13:22)
[2018-12-30] MEDS: *HR* Rivaroxaban 10 MG TABLET PO SCH (17:12)
[2018-12-31] MEDS: Acetaminophen 325 MG TABLET PO PRN ×2 (02:15→21:11)
[2018-12-31] MEDS: Insulin LISPRO 300 UNITS/3 ML VIAL SQ SCH ×4 (07:53→21:07)
[2018-12-31] MEDS: Furosemide 20 MG TABLET PO SCH ×2 (08:21→17:32)
[2018-12-31] MEDS: Magnesium Oxide 400 MG TABLET PO SCH (08:21)
[2018-12-31] MEDS: Cholecalciferol (D-3) 1,000 UNIT TABLET PO SCH (08:21)
[2018-12-31] MEDS: *HR* Glimepiride 4 MG TABLET PO SCH (08:22)
[2018-12-31] MEDS: *HR* SitaGLIPtin 100 MG TABLET PO SCH (08:22)
[2018-12-31] MEDS: Lactobacillus 1 EACH CAP.SPRINK PO SCH ×2 (08:22→21:13)
[2018-12-31] MEDS: amLODIPine 5 MG TABLET PO SCH (08:22)
[2018-12-31] MEDS: Cyanocobalamin (B-12) 1,000 MCG TABLET PO SCH (08:22)
[2018-12-31] MEDS: Multivit/Ca/Min/Fe/FA 1 TAB TABLET PO SCH (08:22)
[2018-12-31] MEDS: Famotidine 20 MG TABLET PO SCH ×2 (08:25→21:12)
[2018-12-31] MEDS: Psyllium 1 PACKET POWD.PACK PO SCH ×2 (08:28→21:04)
--- NOTE | 2018-12-31 12:32 | Internal Med Progress Note ---
Date of Encounter: 12/30/18 Time of Encounter: 11:50 - Assessment and plan (1) CVA (cerebrovascular accident due to intracerebral hemorrhage) Current Visit: Yes Status: Acute Assessment and plan: He continues to make good progress with therapies. Plan on discharge when safety is optimized. Qualifiers: Cerebral hemorrhage location: unspecified cerebral location Laterality: right Qualified Code(s): I61.9 - Nontraumatic intracerebral hemorrhage, unspecified (2) HTN (hypertension) Current Visit: Yes Status: Chronic Assessment and plan: Clinically controlled. Will keep him on his current regimen. Qualifiers: Hypertension type: essential hypertension Qualified Code(s): I10 - Essential (primary) hypertension (3) Diabetes 1.5, managed as type 2 Current Visit: Yes Status: Chronic Assessment and plan: Sugar control is adequate and will continue to follow. (4) A-fib Current Visit: Yes Status: Chronic Assessment and plan: Stable on current regimen. Qualifiers: Atrial fibrillation type: persistent Qualified Code(s): I48.1 - Persistent atrial fibrillation (5) Chronic renal disease, stage 3, moderately decreased glomerular filtration rate between 30-59 mL/min/1.73 square meter Current Visit: Yes Status: Chronic Assessment and plan: Clinically stable. - Subjective Interval history: The patient was evaluated by me yesterday but the note was not complete. This documentation is being completed today for that reason. Patient has no complaint. He is pleased with his home safety visit. He states bowels and bladder are working well. Patient has no complaint of chest discomfort, dyspnea, orthopnea, palpitations, nausea or vomiting, constipation or diarrhea, other changes in bowel habits, difficulty with urination, rash or itching, or other new complaints, except as mentioned above. Review of systems is otherwise negative. - Constitutional Vitals: Temp Pulse Resp BP Pulse Ox 98.2 F 70 16 128/61 95 12/31/18 07:45 12/31/18 07:45 12/31/18 07:45 12/31/18 07:45 12/31/18 07:45 Exam: Examination: (Except as mentioned above): General: In no apparent distress. Alert and oriented 3. Nondiaphoretic. Head: Atraumatic and normocephalic. Respiratory: No use of accessory muscles. Lungs are clear throughout. Normal airflow. Cardiovascular: Irregularly irregular with controlled rate without murmur appreciated. Abdomen: Bowel sounds are normal. No hepatosplenomegaly mass or tenderness appreciated. Obese and therefore difficult to palpate deeply. Extremities: No cyanosis clubbing or edema. Skin: Warm and non-diaphoretic with no new lesions noted. Internal Medicine: Result - Labs CBC & Chem 7: 12/28/18 06:38 12/28/18 06:38 - ABG Interpretation ABG results: PT/INR, D-dimer PT 23.6 Seconds (9.4-12.1) H 12/03/18 07:04 - VTE Documentation of Mechanical Device: Intermittent pneumatic compression device Consult Discharge Plan - Plan Referrals: Zachary Galdamez CNP [Primary Care Provider] -
--- NOTE | 2018-12-31 14:11 | Internal Med Progress Note ---
Date of Encounter: 12/31/18 Time of Encounter: 14:08 - Assessment and plan (1) CVA (cerebrovascular accident due to intracerebral hemorrhage) Current Visit: Yes Status: Acute Assessment and plan: He is improving, nicely. Discharge is planned for tomorrow. Qualifiers: Cerebral hemorrhage location: unspecified cerebral location Laterality: right Qualified Code(s): I61.9 - Nontraumatic intracerebral hemorrhage, unspecified (2) HTN (hypertension) Current Visit: Yes Status: Chronic Assessment and plan: Clinically controlled. Will keep him on his current regimen. He is concerned about blood pressure. I suggested that they follow blood pressure on a daily basis. We will consider when necessary clonidine prescription for home. Qualifiers: Hypertension type: essential hypertension Qualified Code(s): I10 - Essential (primary) hypertension (3) Diabetes 1.5, managed as type 2 Current Visit: Yes Status: Chronic Assessment and plan: Shoulder continues to improve. We will continue to follow and ration and express desire to be more compliant, at home. (4) A-fib Current Visit: Yes Status: Chronic Assessment and plan: Chronically stable. Qualifiers: Atrial fibrillation type: persistent Qualified Code(s): I48.1 - Persistent atrial fibrillation (5) Chronic renal disease, stage 3, moderately decreased glomerular filtration rate between 30-59 mL/min/1.73 square meter Current Visit: Yes Status: Chronic Assessment and plan: Again, this is stable. - Subjective Interval history: Patient is without complaint. He is feeling well and bowels and bladder are functioning well. He is excited to be going home tomorrow. We discussed his oxygenation. Someone told him he could take this off. I reiterated to patient and that his custom shoe designer and maker wants him to be on a liter a minute by nasal cannula. They agreed to do so. Patient has no complaint of chest discomfort, dyspnea, orthopnea, palpitations, nausea or vomiting, constipation or diarrhea, other changes in bowel habits, difficulty with urination, rash or itching, or other new complaints, except as mentioned above. Review of systems is otherwise negative. - Constitutional Vitals: Temp Pulse Resp BP Pulse Ox 98.2 F 70 16 128/61 95 12/31/18 07:45 12/31/18 07:45 12/31/18 07:45 12/31/18 07:45 12/31/18 07:45 Exam: Examination: (Except as mentioned above): General: In no apparent distress. Alert and oriented 3. Nondiaphoretic. Head: Atraumatic and normocephalic. Respiratory: No use of accessory muscles. Lungs are clear throughout. Normal airflow. Cardiovascular: Regular rate and rhythm without murmur appreciated. Abdomen: Bowel sounds are normal. No hepatosplenomegaly mass or tenderness appreciated. Obese and therefore difficult to palpate deeply. Patient is examined upright in chair and this also limits exam. Extremities: No cyanosis clubbing or edema. Skin: Warm and non-diaphoretic with no new lesions noted. Neurologically, the patient still has some clumsiness of his left upper extremity but this is markedly improved. He has no facial weakness or dysarthria. Internal Medicine: Result - Labs CBC & Chem 7: 12/28/18 06:38 12/28/18 06:38 - ABG Interpretation ABG results: PT/INR, D-dimer PT 23.6 Seconds (9.4-12.1) H 12/03/18 07:04 - VTE Documentation of Mechanical Device: Intermittent pneumatic compression device Consult Discharge Plan - Plan Referrals: Zachary Galdamez CNP [Primary Care Provider] -
--- NOTE | 2018-12-31 16:21 | Internal Med Progress Note ---
Date of Encounter: 12/31/18 Time of Encounter: 16:19 - Assessment and plan (1) CVA (cerebrovascular accident due to intracerebral hemorrhage) Current Visit: Yes Status: Acute Assessment and plan: making good improvement with therapy. Continue PT, OT and ST. Will follow progress. No new neurological deficits. Follow up with neurology as scheduled. planning for discharge tomorrow. Qualifiers: Cerebral hemorrhage location: unspecified cerebral location Laterality: ri ght Qualified Code(s): I61.9 - Nontraumatic intracerebral hemorrhage, uns pecified (2) HTN (hypertension) Current Visit: Yes Status: Chronic Assessment and plan: Controlled with current medication. Continue clonidine as needed. Will monitor blood pressure. Qualifiers: Hypertension type: essential hypertension Qualified Code(s): I10 - Essential (primary) hypertension (3) Diabetes 1.5, managed as type 2 Current Visit: Yes Status: Chronic Assessment and plan: Controlled with sliding scale insulin. Continue to monitor blood sugars. Will adjust medications as necessary. (4) Chronic renal disease, stage 3, moderately decreased glomerular filtration rate between 30-59 mL/min/1.73 square meter Current Visit: Yes Status: Chronic Assessment and plan: Will monitor labs. Avoid nephrotoxic agents. (5) A-fib Current Visit: Yes Status: Chronic Assessment and plan: Rate and rhythm stable. continue xarelto. Qualifiers: Atrial fibrillation type: persistent Qualified Code(s): I48.1 - Persistent atrial fibrillation - Time Spent With Patient less than 15 minutes - Subjective Interval history: participating well with therapy. ambulating with walker with therapy, up in [facility]. overnight home visit went well. went on outing with rec therapy today with no issues. discharge planned for 01/01. Denies any new neurological deficits. Denies fever, chills, nausea vomiting, SOB or chest pain. Maintaining appetite and hydration. - Constitutional Vitals: Temp Pulse Resp BP Pulse Ox 98.2 F 70 16 128/61 95 12/31/18 07:45 12/31/18 07:45 12/31/18 07:45 12/31/18 07:45 12/31/18 07:45 General appearance: Present: cooperative, A&O X 3, pleasant, no acute distress, obese, answers questions appropriately. Absent: severe distress - Head Head exam: Present: atraumatic, normocephalic - Eye Eye exam: Present: PERRL, conjuntiva pink, sclera anicteric Pupils: Present: PERRL - Neck Neck exam general surgery: Present: supple, trachea midline. Absent: lymphadenopathy - Respiratory Respiratory exam: Present: CTAB. Absent: accessory muscle use, rales, rhonchi, wheezes - Cardiovascular Cardiovascular exam: Present: irregular rhythm, +S1, +S2. Absent: diastolic murmur, gallop, rubs, systolic murmur - GI/Abdominal GI/Abdominal exam: Present: normal bowel sounds, soft, no peritoneal signs. Absent: distended, tenderness - Extremities Exam Extremities exam: Present: warm, radial pulses palpable and symmetrical. Abse nt: calf tenderness, cyanotic, pedal edema Additional comments: left sided weakness - Neurological Exam Neurological exam: Present: CN II-XII intact, oriented X3, no focal deficits. Absent: pronater drift, facial droop, speech deficit - Skin Skin exam: Present: dry, intact Internal Medicine: Result - Labs CBC & Chem 7: 12/28/18 06:38 12/28/18 06:38 - ABG Interpretation ABG results: PT/INR, D-dimer PT 23.6 Seconds (9.4-12.1) H 12/03/18 07:04 - VTE Documentation of Mechanical Device: Intermittent pneumatic compression device Consult Discharge Plan - Plan Referrals: Zachary Galdamez CNP [Primary Care Provider] -
[2018-12-31] MEDS: *HR* Rivaroxaban 10 MG TABLET PO SCH (17:32)
[2019-01-01] MEDS: Acetaminophen 325 MG TABLET PO PRN (06:32)
[2019-01-01 07:30] VITALS: BP 125/54
[2019-01-01] MEDS: Famotidine 20 MG TABLET PO SCH (08:48)
[2019-01-01] MEDS: Cholecalciferol (D-3) 1,000 UNIT TABLET PO SCH (08:49)
[2019-01-01] MEDS: Magnesium Oxide 400 MG TABLET PO SCH (08:49)
[2019-01-01] MEDS: *HR* SitaGLIPtin 100 MG TABLET PO SCH (08:49)
[2019-01-01] MEDS: Furosemide 20 MG TABLET PO SCH (08:49)
[2019-01-01] MEDS: amLODIPine 5 MG TABLET PO SCH (08:49)
[2019-01-01] MEDS: Multivit/Ca/Min/Fe/FA 1 TAB TABLET PO SCH (08:50)
[2019-01-01] MEDS: Insulin LISPRO 300 UNITS/3 ML VIAL SQ SCH ×2 (08:50→12:49)
[2019-01-01] MEDS: Cyanocobalamin (B-12) 1,000 MCG TABLET PO SCH (08:50)
[2019-01-01] MEDS: Lactobacillus 1 EACH CAP.SPRINK PO SCH (08:50)
[2019-01-01] MEDS: *HR* Glimepiride 4 MG TABLET PO SCH (08:50)
[2019-01-01] MEDS: Psyllium 1 PACKET POWD.PACK PO SCH (08:51)
--- NOTE | 2019-01-01 10:21 | Discharge Summary ---
Date of Encounter: 01/01/19 Time of Encounter: 10:18 - Discharge Diagnosis (1) CVA (cerebrovascular accident due to intracerebral hemorrhage) Priority: Primary Status: Acute Comments: Patient was admitted to this facility after experiencing an acute CVA with left hemiparesis and an area hospital. Patient was transferred here for further rehabilitation due to weakness and for safety due to his left hemiparesis. Patient's strength on his left extremities had increased throughout his stay. Patient continues to have slight left hemiparesis with left extremities 4+/5 muscle strength. Right extremities have 5/5 muscle strength. Patient continues to show unsteady gait, requiring assistance during ambulation while using a wheeled walker. Patient's fine motor movement on his left extremities has also improved the patient still shows a slight deficit. Patient will continue his rehabilitation to outpatient therapy at this facility. Patient is to follow-up with his PCP and neurology after discharge. We will continue with current medications at home. Qualifiers: Cerebral hemorrhage location: unspecified cerebral location Laterality: right Qualified Code(s): I61.9 - Nontraumatic intracerebral hemorrhage, unspecified (2) HTN (hypertension) Priority: Secondary Status: Chronic Comments: Patient's blood pressure was somewhat elevated during his stay at this facility. Patient's medications were titrated and currently his systolic blood pressure has remained less than 160 with current medications. Patient was started on Catapres patch and uses hydralazine when necessary when his systolic blood pressures greater than 160. Patient will continue on his Norvasc and losartan at the same dosing that he was taking prior to admission. Patient is to continue follow-up with his PCP for further evaluation and management. Qualifiers: Hypertension type: essential hypertension Qualified Code(s): I10 - Essential (primary) hypertension (3) Diabetes 1.5, managed as type 2 Priority: Secondary Status: Chronic Comments: Patient's glucose was somewhat elevated during his stay. Patient's glucose is better controlled with most readings less than 170 at time of discharge on fingersticks. Patient will continue his Amaryl and will continue with his fingersticks at home, following up with his PCP for further evaluation and treatment. Patient's metformin was discontinued due to frequent loose stools. (4) Chronic renal disease, stage 3, moderately decreased glomerular filtration rate between 30-59 mL/min/1.73 square meter Priority: Secondary Status: Chronic Comments: No acute issues during his stay at this facility. Patient's renal status was monitored with serial labs. Patient is continue his follow-up with PCP and continue on current medications (5) A-fib Priority: Secondary Status: Chronic Comments: No acute issues during his stay. Patient's heart rate remained controlled less than 100 bpm. Patient currently is on Xerelto Qualifiers: Atrial fibrillation type: persistent Qualified Code(s): I48.1 - Persistent atrial fibrillation Hospital course: Mr. Wade is a 73 year old male, who was admitted to this facility from an [facility] after experiencing a right CVA resulting in left hemiparesis. Patient also had a history of diabetes, hypertension, atrial fibrillation and chronic kidney disease. Patient was transferred here for further rehabilitation due to generalized weakness, and for safety due to his left hemiparesis and risk for fall and injury. Aggressive oral during his stay at this facility with the strength on his left extremities improving throughout several weeks and currently shows a muscle strength 4+/5. Patient's right extremities currently is at 5/5. Patient continues to have some difficulty with fine motor movement with left upper extremity and patient also continues to have some difficulty with an unsteady gait due to his weakness of left leg. During his stay patient's blood pressure was somewhat elevated at times required titration of his current medications. Patient will continue on his home medications of amlodipine and losartan and was started on Catapres patches with when necessary hydralazine. Currently patient's blood pressure has remained less than 160s systolically. Patient's glucose was also somewhat elevated during his stay. Patient's metformin was discontinued due to diarrhea and patient was covered with sliding scale insulin. Currently patient's glucose has been well controlled with most fingersticks less than 170. Patient will continue on his Amaryl at home. He with his physical therapy and rehabilitation to outpatient services here at [facility]. As discussed with physical therapy and occupational therapy, patient continues to have an unsteady gait during ambulation with wheeled walker and poor endurance with fatigue. Patient continues to ambulate with a wheeled walker but continues to require assistance during that time due to his continued poor balance and left hemiparesis. Due to his need for assistance while ambulating with a walker, he continues to be considered a risk for fall and injury. A wheelchair was considered to allow patient to safely and successfully complete daily living tasks and for safe mobility in his home. Patient continues to have left upper extremity weakness secondary to his CVA, which prevents him from successfully propel himself while using a manual wheelchair. This results with continued decreased mobility in his home, as well as inability to safely access ramp for entry into his home or emergency evacuation. This will decrease his independence at home and he will continue to be at risk for fall and injury. Anticipating patient to have times where he will be unassisted at home, it is recommended for patient to have a powered wheelchair to allow independence and decrease his risk for fall or injury. Patient was given prescriptions for his new medications and instructed to follow up with his PCP in 2 weeks for further evaluation. Patient is continue his follow-up with neurology as scheduled. Discharge discussed with: patient, family Time spent discussing smoking cessation with patient: 3 to 10 minutes - Time Spent with Patient Total time spent providing and/or coordinating discharge services: Time spent: Less than 30 minutes - Discharge Medications Prescriptions: New CloNIDine Patch [Catapres-Tts] 0.2 mg TD QWEEK #4 patch.tdwk Ferrous Sulfate 325 mg PO DAILY #40 tablet hydrALAZINE [HydrALAZINE] 10 mg PO Q6HR PRN #40 tablet PRN Reason: Blood Pressure - High Furosemide [Lasix] 20 mg PO BID #60 tablet Magnesium Oxide [Mag-Ox] 400 mg PO DAILY #40 tablet Famotidine [Pepcid] 20 mg PO BID #60 tablet Rivaroxaban [Xarelto] 20 mg PO DAILY #30 tablet No Action Terazosin [Hytrin] 10 mg PO HS Tamsulosin [Flomax] 0.4 mg PO DAILY SitaGLIPtin [Januvia] 100 mg PO DAILY Simvastatin [Zocor] 20 mg PO HS Omeprazole [PriLOSEC] 40 mg PO DAILY metFORMIN [Glucophage] 1,000 mg PO BIDWM Levothyroxine [Synthroid] 75 mcg PO 0630 Cyanocobalamin (B-12) [Vitamin B12] 2,000 mcg PO DAILY Potassium Chloride [K-Tab ER] 20 meq PO DAILY Citalopram Hydrobromide [Celexa] 20 mg PO DAILY Sennosides/Docusate Sodium [Senna-S Tablet] 1 each PO BID Glimepiride [Amaryl] 4 mg PO QAM Losartan Potassium [Cozaar] 100 mg PO DAILY amLODIPine [Norvasc] 10 mg PO DAILY Home Medications: Citalopram Hydrobromide [Celexa] 20 mg PO DAILY 11/13/18 [History] Cyanocobalamin (B-12) [Vitamin B12] 2,000 mcg PO DAILY 11/13/18 [History] Glimepiride [Amaryl] 4 mg PO QAM 11/13/18 [History] Levothyroxine [Synthroid] 75 mcg PO 0630 11/13/18 [History] Losartan Potassium [Cozaar] 100 mg PO DAILY 11/13/18 [History] Omeprazole [PriLOSEC] 40 mg PO DAILY 11/13/18 [History] Potassium Chloride [K-Tab ER] 20 meq PO DAILY 11/13/18 [History] Sennosides/Docusate Sodium [Senna-S Tablet] 1 each PO BID 11/13/18 [History] Simvastatin [Zocor] 20 mg PO HS 11/13/18 [History] SitaGLIPtin [Januvia] 100 mg PO DAILY 11/13/18 [History] Tamsulosin [Flomax] 0.4 mg PO DAILY 11/13/18 [History] Terazosin [Hytrin] 10 mg PO HS 11/13/18 [History] amLODIPine [Norvasc] 10 mg PO DAILY 11/13/18 [History] metFORMIN [Glucophage] 1,000 mg PO BIDWM 11/13/18 [History] CloNIDine Patch [Catapres-Tts] 0.2 mg TD QWEEK #4 patch.tdwk 01/01/19 [Rx] Famotidine [Pepcid] 20 mg PO BID #60 tablet 01/01/19 [Rx] Ferrous Sulfate 325 mg PO DAILY #40 tablet 01/01/19 [Rx] Furosemide [Lasix] 20 mg PO BID #60 tablet 01/01/19 [Rx] Magnesium Oxide [Mag-Ox] 400 mg PO DAILY #40 tablet 01/01/19 [Rx] Rivaroxaban [Xarelto] 20 mg PO DAILY #30 tablet 01/01/19 [Rx] hydrALAZINE [HydrALAZINE] 10 mg PO Q6HR PRN #40 tablet 01/01/19 [Rx] Allergies/Adverse Reactions: Allergy/AdvReac Type Severity Reaction Status Date / Time Bee Pollen Allergy Anaphylaxis Verified 03/08/19 01:15 Date of admission: 11/13/18 18:23 Primary care physician: Antwan Galdamez CNP Consults: 11/13/18 19:10 Consult to Occupational Therapy [CONS] Routine Comment: eval Reason for Consult: eval Does patient have active BEDREST order?: No Is patient medically & hemodynamically stable?: Yes Consult to Physical Therapy [CONS] Routine Comment: cva Reason for Consult: eval Does patient have active BEDREST order?: No Is patient medically & hemodynamically stable?: Yes Consult to Recreational Therapy [CONS] Routine Comment: Consult to Labor Law Professor [CONS] Routine Reason for SW Consult: d/c planning 11/13/18 19:13 Consult to Speech Therapy [CONS] Routine Comment: Evaluate, develop and implement POC Reason for Consult: eval Call Completed: Yes 11/13/18 19:14 Consult to Physical Medicine/Rehab [CONS] Routine Reason for Consult: Please evaluate and manage therapies' guidelines and recommend pathway to reconditioning. Call Completed: Yes 11/17/18 13:51 Consult to Psychology [CONS] Routine Consulting Provider: Kasandra Rogers Reason for Consult: Possible depression; adjustment disorder Call Completed: No Discharging clinician: Marques Tapia - Constitutional Vitals: Temp Pulse Resp BP Pulse Ox 98.2 F 66 14 125/54 96 01/01/19 07:00 01/01/19 07:00 01/01/19 07:00 01/01/19 07:00 01/01/19 07:00 General appearance: Present: cooperative, A&O X 3, pleasant, no acute distress, obese, answers questions appropriately. Absent: severe distress - Head Head exam: Present: atraumatic, normocephalic - Eye Eye exam: Present: PERRL, conjuntiva pink, sclera anicteric Pupils: Present: PERRL - Neck Neck exam general surgery: Present: supple, trachea midline. Absent: lymphadenopathy - Respiratory Respiratory exam: Present: decreased breath sounds, CTAB. Absent: accessory muscle use, rales, rhonchi, wheezes - Cardiovascular Cardiovascular exam: Present: RRR, +S1, +S2. Absent: diastolic murmur, gallop, rubs, systolic murmur - GI/Abdominal GI/Abdominal exam: Present: normal bowel sounds, soft, no peritoneal signs. Absent: distended, tenderness - Extremities Exam Extremities exam: Present: warm, radial pulses palpable and symmetrical. Absent: calf tenderness, cyanotic, pedal edema - Neurological Exam Neurological exam: Present: CN II-XII intact, oriented X3. Absent: pronater drift, facial droop, speech deficit Additional comments: Patient continues a very slight left hemiparesis showing muscle strength of 4+/5 on left extremities and right extremities at 5/5. Continues with fine motor deficits on left upper extremity. - Skin Skin exam: Present: dry, intact - Patient Status Disposition: Home, Self-Care Condition: Good Functional capacity at discharge: uses cane/walker Overall status at discharge: patient is progressing back to baseline - Discharge Instructions Follow Up With: Zachary Galdamez CNP [Primary Care Provider] - - Diet and Activity Activity: ambulate only with your walker, as per physical therapy, increase activity as tolerated Diet: diabetic diet, low fat, low cholesterol, low salt diet - VTE Documentation of Mechanical Device: Intermittent pneumatic compression device
== END 2019-01-01 14:40 | disposition home or self-care (01) | DRG 57 ==
LOC: INPGRE 11-13 18:23